=== PATIENT | female | born 1950 | race Caucasian/White ===

== ENCOUNTER 2021-06-04 09:20 | Emergency (ER) | payer MEDICARE, SELFPAY ==
[2021-06-04 09:22] VITALS: BP 172/108; PULSE 101; RESP 18; TEMP 36.6; O2SAT 97; BMI 32.3
--- NOTE | 2021-06-04 09:27 | XR_ITS ---
WS: [id number] XR hip LT 2-3V wo/w pel* [id number] REASON FOR EXAM: injury FINDINGS: There is osteoarthritis in the left hip with moderate narrowing of the joint space and osteophytic sp urring of the acetabulum. The femoral head and neck are intact as is the remainder of the femur. No fractures identified on the limited views of the superior and inferior pubic ramus. XR/XR hip LT 2-3V wo/w pel* [id number] IMPRESSION: No acute abnormality identified.
--- NOTE | 2021-06-04 09:28 | ED_ITS ---
HPI - General Adult General: Chief complaint: Extremity Injury, Lower Stated complaint: L HIP PAIN Time Seen by Provider: 06/04/21 09:25 History of Present Illness: HPI narrative: This patient is a 70-year-old female has a history of dementia presents to the emergency department with left hip pain. Patient is incoherent verbally and is this way chronically. No visual evidence of fall however the patient was found laying in the floor complaint left hip pain. Patient's family member states that the patient is known to lay down on the floor and complained of left hip pain. But there was no witness to a fall. Will do medical evaluation treat as needed. Associated symptoms: Deny chest pain, dyspnea, headache(s), nausea, rash, palpitations or vomiting Review of Systems General: Reports: 10 or more systems reviewed and unremarkable except in HPI and below Const: Denies: fever(s), chills, body aches or fatigue Eyes: Denies: change in vision or blurry vision ENMT: Denies: throat pain, hoarseness or mouth pain Card: Denies: chest pain, palpitations, irregular heart rhythm, edema, swelling of feet/ankles or lightheadedness Resp: Denies: dyspnea, productive cough, non-productive cough, wheezing or pain on inspiration GI: Denies: abdominal pain, nausea or vomiting : Denies: flank pain, difficulty voiding, dysuria, urinary frequency, urinary urgency or urinary hesitancy Musc: Reports: joint pain; Denies: neck pain, back pain, extremity pain, extremity swelling, joint swelling, joint redness, joint warmth or limited range of motion Skin/Breast: Denies: rash, pruritus, erythema or skin tenderness Neuro: Denies: headache(s), numbness in extremities or weakness in extremities Psych: Denies: anxiety or depression Physical Exam Const: COMMON NORMALS: no acute distress, average body habitus, patient oriented x3, no limitations, healthy appearing, alert and well nourished HENMT: COMMON NORMALS: normocephalic, atraumatic, hearing grossly normal bilaterally, external ears normal, EAC's normal, TM's normal bilaterally, Normal external nose present, Normal nasal mucous membranes and turbinates present, moist oral mucous membranes, oropharynx normal, dentition normal and gingiva normal HEAD & SCALP: normocephalic and atraumatic NOSE: Normal external nose present and Normal nasal mucous membranes and turbinates present EXTERNAL EAR: Yes external ears normal EXTERNAL AUDITORY CANAL: EAC's normal TYMPANIC MEMBRANE: TM's normal bilaterally Neck/C-Spine: COMMON NORMALS: full ROM, no lymphadenopathy, supple, no meningeal signs, no JVD, Thyroid normal and No carotid bruits THYROID: Thyroid normal Chest: COMMONS NORMALS: normal inspection of the chest, normal palpation of entire chest wall, normal inspection of the breasts and normal palpation of the breasts Breast/axilla inspection: Yes normal inspection of the breasts BREAST/AXILLA PALPATION: Yes normal palpation of the breasts Resp: COMMON NORMALS: normal respiratory effort, No retractions, No use of accessory muscles, clear to auscultation bilaterally and percussion normal AUSCULTATION: clear to auscultation bilaterally PERCUSSION: percussion normal Cardio: COMMON NORMALS: no JVD, regular rate, regular rhythm, S1 normal heart sound present, S2 normal heart sound present, No gallops present (Cardio), No clicks present (Cardio), No murmurs present (Cardio), No rub (Cardio) and Peripheral pulses 2+ throughout RATE: regular rate RHYTHM: regular rhythm HEART SOUNDS: S1 normal heart sound present and S2 normal heart sound present PERIPHERAL PULSES: Peripheral pulses 2+ throughout GI: COMMON NORMALS: Normal to inspection, nondistended, normoactive bowel sounds present, Soft to palpation, non-tender, No hepatosplenomegaly present, no masses and no bruits PALPATION: Yes Soft to palpation and Yes No hepatosplenomegaly present : COMMON NORMALS: Yes no CVA tenderness, Yes normal external appearance, Yes normal appearance of the vagina, Yes normal appearance of the cervix, Yes normal bimanual exam, Yes No adnexal tenderness and Yes no masses BLADDER/KIDNEY EXAM: Yes no CVA tenderness BIMANUAL EXAM - VAGINA & UTERUS: Yes normal bimanual exam Back/Pelvis: COMMON NORMALS: no CVA tenderness, thoracic and lumbar spine normal to inspection, no thoracic nor lumbar tenderness, thoraco-lumbar ROM normal and straight leg raise negative bilaterally Extremity: COMMON NORMALS: normal to inspection, full ROM, capillary refill normal, no joint enlargement, no clubbing, cyanosis or edema, no calf tenderness and no pedal edema NARRATIVE EXTREMITY EXAM: No pain on exam Neuro: COMMON NORMALS: patient oriented x3 SENSORIUM/ORIENTATION: Yes alert MENINGEAL SIGNS: Yes no meningeal signs Course Reevaluation(s): Reevaluation #1: Negative evaluation in the emergency department for any acute findings. Patient be discharged back to nursing Time: 10:35 Vital Signs: Vital signs: Vital Signs Temperature 97.9 F 06/04/21 09:22 Pulse Rate 101 H 06/04/21 09:22 Respiratory Rate 18 06/04/21 09:22 Blood Pressure 172/108 06/04/21 09:22 Pulse Oximetry 97 06/04/21 09:22 MDM - General Adult MDM Narrative: Medical decision making narrative: This patient is a 70-year-old female has a history of dementia presents to the emergency department with left hip pain. Patient is incoherent verbally and is this way chronically. No visual evidence of fall however the patient was found laying in the floor complaint left hip pain. Patient's family member states that the patient is known to lay down on the floor and complained of left hip pain. But there was no witness to a fall. Will do medical evaluation treat as needed. Negative evaluation in the emergency department for any acute findings. Patient be discharged back to nursing Imaging Data^: Xray Ortho: Attestation: I personally reviewed and interpreted this imaging study as follows: Radiologist's impression: FINDINGS: There is osteoarthritis in the left hip with moderate narrowing of the joint space and osteophytic spurring of the acetabulum. The femoral head and neck are intact as is the remainder of the femur. No fractures identified on the limited views of the superior and inferior pubic ramus. XR/XR hip LT 2-3V wo/w pel* [id number] IMPRESSION: No acute abnormality identified. Discharge Plan Discharge Patient Disposition: Home Clinical Impression: Hip osteoarthritis, Dementia Condition: Stable Discharge Orders: Discharge ED (Routine); Ordered 06/04/21 Ordered By: Paulo Kilgore Referrals: Paulina Crawford MD [Primary Care Provider] - Discharge Diet: Advance as tolerated Discharge Activity: Resume usual activity Patient Instructions: Opioid Safety Activity Restrictions/Additional Instructions: Take medications as prescribed for osteoarthritis of the hip. Follow-up with primary care physician to address any further pain medication concerns. Coding Level of Care Code ED Hospice Entrance Attendant for Chg Fwd Exam Comprehensive
[2021-06-04 10:59] VITALS: BP 163/89; PULSE 87; RESP 20; TEMP 36.8; O2SAT 94
== END 2021-06-04 11:29 | disposition home or self-care (01) ==
PROVIDERS: Emergency Provider Emergency Medicine; PCP Family Medicine
DX: M16.12 Unilateral primary osteoarthritis, left hip (principal); F03.90 Unspecified dementia, unspecified severity, without behavioral disturbance, psychotic disturbance, mood disturbance, and anxiety
CPT/HCPCS: 73502; 99282

== ENCOUNTER 2021-06-10 13:40 | Outpatient (CLI) | payer MEDICARE, SELFPAY ==
[2021-06-10 15:02] LABS: Basophils # 0.1 10^3/uL (0.0-0.1); Basophils % 0.8 %; Eosinophils # 0.3 10^3/uL (0.0-0.8); Eosinophils % 4.1 %; Hematocrit 42.3 % (37.0-47.0); Lymphocytes # 2.4 10^3/uL (0.8-4.8); Mean Corpuscular HGB Conc 30.7 g/dL (30.0-36.0); Mean Corpuscular Hemoglobin 27.6 pg (28.0-34.0); Mean Corpuscular Volume 89.8 fl (81-99); Mean Platelet Volume 10.8 fL (7.4-10.4); Monocytes # 0.5 10^3/uL (0.2-0.9); Monocytes % 5.9 %; Neutrophils # 4.93 10^3/uL (1.8-7.7); Neutrophils % 59.7 %; Nucleated Red Blood Cells % 0 %; Platelet Count 345 10^3/cmm (130-400); Red Blood Count 4.71 10^6/uL (4.1-5.3); Red Cell Distribution Width 13.3 % (12.1-15.1); White Blood Count 8.3 10^3/uL (4.0-10.0)
== END 2021-06-10 13:41 | disposition home or self-care (01) ==
PROVIDERS: PCP Family Medicine; Visit Provider Family Medicine
DX: D64.9 Anemia, unspecified (principal)
CPT/HCPCS: 85025

== ENCOUNTER 2021-06-11 14:24 | Outpatient (CLI) | payer MEDICARE, SELFPAY ==
[2021-06-11 14:32] LABS: Add Urine Microscopic? NO; Charge for UA Resulting for Rev
[2021-06-11 15:07] LABS: Bilirubin Urine Neg (Negative); Blood Urine Neg (Negative); Glucose Urine UA Norm (Normal); Ketones Urine Negative (Negative); Leukocyte Esterase Urine Negative (Negative); Nitrate Urine Negative (Negative); Protein Urine Neg (Negative); Specific Gravity, Urine 1.015 (1.005-1.030); Sulfosalicylic Acid Urine Negative (Negative); Urine Appearance Clear (CLEAR); Urine Color Yellow (Yellow); Urobilinogen Urine Norm (Negative); pH Urine 9 (5-7)
== END 2021-06-11 14:25 | disposition home or self-care (01) ==
LOC: LAB 14:28
PROVIDERS: PCP Family Medicine; Visit Provider Family Medicine
DX: R41.82 Altered mental status, unspecified (principal)
CPT/HCPCS: 81003; 87077; 87086; 87186

== ENCOUNTER 2021-08-10 22:19 | Emergency (ER) | payer MEDICARE, SELFPAY ==
--- NOTE | 2021-08-10 03:22 | XRR_ITS ---
PROCEDURE INFORMATION: Exam: XR Chest Exam date and time: 08/10/2021 3:22 AM Age: 71 years old Clinical indication: Shortness of breath; Additional info: AMS TECHNIQUE: Imaging protocol: XR of the chest. Views: 1 view. COMPARISON: No relevant prior studies available. FINDINGS: Lungs: Unremarkable. No consolidation. Pleural spaces: Unremarkable. No pleural effusion. No pneumothorax. Heart/Mediastinum: Unremarkable. No cardiomegaly. Bones/joints: There has been a fusion of the lower cervical spine. No other acute bony abnormality. XR/XR chest 1V portable [id number] IMPRESSION: No acute cardiopulmonary abnormality.
[2021-08-10 22:20] VITALS: BP 168/86; PULSE 95; RESP 20; TEMP 36.7; O2SAT 89; BMI 28.2
[2021-08-10 22:59] LABS: Add Urine Microscopic? NO; Charge for UA Resulting for Rev
[2021-08-10 23:00] LABS: Basophils # 0.1 10^3/uL (0.0-0.1); Basophils % 0.4 %; Eosinophils % 0.1 %; Hematocrit 38.9 % (37.0-47.0); Hemoglobin 12.8 g/dL (11.5-15.3); Lymphocytes # 1.6 10^3/uL (0.8-4.8); Lymphocytes % 9.7 %; Mean Corpuscular HGB Conc 32.9 g/dL (30.0-36.0); Mean Corpuscular Hemoglobin 29.4 pg (28.0-34.0); Mean Corpuscular Volume 89.4 fl (81-99); Mean Platelet Volume 11.3 fL (7.4-10.4); Monocytes # 0.9 10^3/uL (0.2-0.9); Monocytes % 5.3 %; Neutrophils # 14.23 10^3/uL (1.8-7.7); Neutrophils % 83.9 %; Nucleated Red Blood Cells % 0 %; Platelet Count 296 10^3/cmm (130-400); Red Blood Count 4.35 10^6/uL (4.1-5.3); Red Cell Distribution Width 14.5 % (12.1-15.1)
[2021-08-10 23:01] LABS: Bilirubin Urine 1+ (Negative); Blood Urine Neg (Negative); Glucose Urine UA Norm (Normal); Ketones Urine 1+ (Negative); Leukocyte Esterase Urine Negative (Negative); Nitrate Urine Negative (Negative); Protein Urine Neg (Negative); Urine Appearance Clear (CLEAR); Urine Color Yellow (Yellow); Urobilinogen Urine 4 mg/dL (Negative); pH Urine 7 (5-7)
[2021-08-10 23:02] VITALS: BP 126/84; PULSE 81; RESP 18; O2SAT 96
--- NOTE | 2021-08-10 23:06 | CTR_ITS ---
PROCEDURE INFORMATION: Exam: CT Head Without Contrast Exam date and time: 08/10/2021 11:06 PM Age: 71 years old Clinical indication: Altered mental status/memory loss; Additional info: AMS TECHNIQUE: Imaging protocol: Computed tomography of the head without contrast. Radiation optimization: All CT scans at this facility use at least one of these dose optimization techniques: automated exposure control; mA and/or kV adjustment per patient size (includes targeted exams where dose is matched to clinical indication); or iterative reconstruction. COMPARISON: No relevant prior studies available. RADIATION DOSE METRICS: Total DLP (mGy-cm): 867.6 FINDINGS: Brain: Age appropriate atrophy and small vessel ischemic change. There is an old lacunar infarct in the left cerebellar hemisphere. No evidence of intracranial hemorrhage, mass effect, midline shift or extra-axial fluid collections. Midline structures are normal. Nick-white matter differentiation is normal. Cerebral ventricles: No ventriculomegaly. Paranasal sinuses: Mucosal thickening in the ethmoid and maxillary sinuses. Mastoid air cells: Visualized mastoid air cells are well aerated. Vasculature: Carotid atherosclerotic calcification. Bones/joints: Unremarkable. No acute fracture. Soft tissues: Unremarkable. CT/CT head wo con* [id number] IMPRESSION: No acute intracranial abnormality.
--- NOTE | 2021-08-10 23:07 | ECG_ITS ---
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 Measurements Intervals [place] Rate: 90 P: 64 ME: 170 QRS: -19 QRSD: 103 T: 34 QT: 381 QTc: 467 Interpretive Statements SINUS RHYTHM INFERIOR MYOCARDIAL INFARCTION , PROBABLY OLD [40+ ms Q WAVE AND/OR ST/T ABNORMALITY IN II/aVF] Nonspecific T wave changes No previous ECG available for comparison Electronically Signed On 08-11-2021 20:45:06 CORSET FITTER by Ahsia Kennedy M.D. [id number] f
[2021-08-10 23:13] LABS: Alanine Aminotransferase 7 U/L (0-33); Albumin Level 4.1 g/dL (3.5-5.2); Alkaline Phosphatase 58 IU/L (35-105); Anion Gap 18.8 (5-19); Aspartate Amino Transferase 10 U/L (0-32); Blood Urea Nitrogen 13 mg/dL (8-23); Calcium 8.8 mg/dL (8.5-10.5); Carbon Dioxide 24 mmol/L (22-29); Chloride 100 mmol/L (98-107); Globulin 2.6 g/dL (1.3-4.6); Glucose 182 mg/dL (65-115); Osmolality Calculated 293 mOsm/kg (285-295); Potassium 3.8 mmol/L (3.5-5.1); Sodium 139 mmol/L (136-145); Total Bilirubin 0.8 mg/dL (0.15-1.2); Total Protein 6.7 g/dL (6.6-8.7)
[2021-08-10 23:22] LABS: Magnesium 1.8 mg/dL (1.7-2.3); Phosphorus 4.1 mg/dL (2.5-4.5)
[2021-08-10 23:28] LABS: Troponin(5th) Baseline 12 ng/L (0-10)
[2021-08-10 23:47] VITALS: BP 126/65; PULSE 77; RESP 17; O2SAT 96
[2021-08-11 00:16] LABS: Lactate (Lactic Acid level) 1.6 mmol/L (0.5-2.2)
[2021-08-11 00:51] LABS: ABG PH Result 7.43 (7.35-7.45); Arterial Blood Gas Hematocrit 39.6 % (37-47); Base Excess ABG 3.6 mmol/L (-2.0-2.0); Blood Gas Sample Type Arterial; HCO3 ABG 28.4 mmol/L (22-26); PO2 ABG 89.7 mmHg (80.0-100.0)
[2021-08-11 00:53] LABS: Blood Gas Sample Site Radial, left; Oxygen Device NC
--- NOTE | 2021-08-11 01:12 | W.ED.AMS ---
HPI - Altered Mental Status General: Chief Complaint: Altered Mental Status Stated Complaint: AMS Time Seen by Provider: 08/10/21 22:26 History of Present Illness: HPI narrative: 71yo female demented care home patient presenting with decreased mental status change. She is an unreliable historian. Reportedly there was some improvement with Narcan, although I do not see that the patient is on any opiates. MD complaint: altered mental status Onset (ago): hour(s) Timing confirmed by: caregiver Severity: moderate Consistency of symptoms: Unknown Context: other Associated symptoms: Reports no associated symptoms Review of Systems General: Reports: ROS unobtainable due to medical condition PFS ED PFSH: Medical History (Updated 08/11/21 @ 01:35 by Lalo Painter DO) Psychiatric care Physical Exam Const: GENERAL APPEARANCE: comfortable and lethargic; not in distress and not ill appearing ORIENTATION/CONSCIOUSNESS: Yes lethargic HENMT: COMMON NORMALS: normocephalic, atraumatic and Normal external nose present HEAD & SCALP: normocephalic and atraumatic NOSE: Normal external nose present and Normal nares present Eye: COMMON NORMALS: Equal, round and reactive pupils present PUPIL: Yes Equal, round and reactive pupils present Chest: COMMONS NORMALS: normal inspection of the chest Resp: COMMON NORMALS: normal respiratory effort Cardio: COMMON NORMALS: regular rate and regular rhythm RATE: regular rate RHYTHM: regular rhythm GI: COMMON NORMALS: Normal to inspection, nondistended, normoactive bowel sounds present and Soft to palpation PALPATION: Yes Soft to palpation Neuro: SENSORIUM/ORIENTATION: Yes lethargic SENSORY EXAM: Yes extremities (Seem intact) MOTOR EXAM: 5/5 motor strength present throughout (Patient moves all extremities equally, but does not follow commands.) Course Vital Signs: Vital signs: Vital Signs Temperature 98.0 F 08/10/21 22:20 Pulse Rate 81 08/11/21 02:46 Respiratory Rate 15 08/11/21 02:46 Blood Pressure 145/70 08/11/21 02:46 Pulse Oximetry 97 08/11/21 02:46 MDM - Altered Mental Status MDM Narrative: Medical decision making narrative: This patient is a poor historian, and does not follow commands appropriately. She is somnolent. It appears she takes gabapentin and haloperidol. Cath urine shows no urinary tract infection. Her white blood cell count is high. No definite source of infection. Her chest x-ray is negative. Head CT is negative. Oxygenation seems appropriate. Troponin did not elevated [address] changes on EKG. With no focal neurologic deficits, no significant findings by exam, or laboratory, she may return to the care home for now. Lab Data: Labs: Lab Results 08/10/21 08/10/21 08/10/21 00:39 22:02 22:02 WBC 17.0 10^3/uL H 10 ^3/uL (4.0-10.0) RBC 4.35 10^6/uL 10^6 /uL (4.1-5.3) Hgb 12.8 g/dL g/dL (11.5-15.3) Hct 38.9 % % (37.0-47.0) MCV 89.4 fl fl (81-99) MCH 29.4 pg pg (28.0-34.0) MCHC 32.9 g/dL g/dL (30.0-36.0) RDW 14.5 % % (12.1-15.1) Plt Count 296 10^3/cmm 10^3 /cmm (130-400) MPV 11.3 fL H fL (7.4-10.4) Neut % (Auto) 83.9 % % Lymph % (Auto) 9.7 % % [place] % (Auto) 5.3 % % Eos % (Auto) 0.1 % % Baso % (Auto) 0.4 % % Neut # (Auto) 14.23 10^3/uL H 1 0^3/uL (1.8-7.7) Lymph # (Auto) 1.6 10^3/uL 10^3/ uL (0.8-4.8) [place] # (Auto) 0.9 10^3/uL 10^3/ uL (0.2-0.9) Eos # (Auto) 0.0 10^3/uL 10^3/ uL (0.0-0.8) Baso # (Auto) 0.1 10^3/uL 10^3/ uL (0.0-0.1) Nucleated RBC % (a uto) 0 % % Nucleated RBCs # 0.0 /100WBC /100W BC Specimen Type Arterial Sample Site Radial, left ABG pH 7.43 (7.35-7.45) ABG pCO2 43.0 mmHg mmHg (35-45) ABG pO2 89.7 mmHg mmHg (80.0-100.0) ABG HCO3 28.4 mmol/L H mmo l/L (22-26) ABG Base Excess 3.6 mmol/L H mmol /L (-2.0-2.0) Mark Test N/a Hematocrit 39.6 % % (37-47) O2 Delivery Device Nc O2 Liters/Min 2.0 % % Customer Sales Advisor ID Nicer2 Sodium 139 mmol/L mmol/L (136-145) Potassium 3.8 mmol/L mmol/L (3.5-5.1) Chloride 100 mmol/L mmol/L (98-107) Carbon Dioxide 24 mmol/L mmol/L (22-29) Anion Gap 18.8 (5-19) BUN 13 mg/dL mg/dL (8-23) Creatinine 0.5 mg/dL mg/dL (0.5-0.9) GFR Calculation Not Reportable Glucose 182 mg/dL H mg/dL (65-115) Calculated Osmolal ity 293 mOsm/kg mOsm/ kg (285-295) Lactate Calcium 8.8 mg/dL mg/dL (8.5-10.5) Phosphorus Magnesium Total Bilirubin 0.8 mg/dL mg/dL (0.15-1.2) AST 10 U/L U/L (0-32) ALT 7 U/L U/L (0-33) Alkaline Phosphata se 58 IU/L IU/L (35-105) Troponin T Baselin e Troponin T 120 Min [place] Troponin T Total Protein 6.7 g/dL g/dL (6.6-8.7) Albumin 4.1 g/dL g/dL (3.5-5.2) Globulin 2.6 g/dL g/dL (1.3-4.6) Urine Color Urine Appearance Urine pH Ur Specific Gravit y Urine Protein Urine Glucose (UA) Urine Ketones Urine Blood Urine Nitrate Urine Bilirubin Urine Urobilinogen Ur Leukocyte Karmen ase 08/10/21 08/10/21 08/10/21 22:02 22:02 22:30 WBC RBC Hgb Hct MCV MCH MCHC RDW Plt Count MPV Neut % (Auto) Lymph % (Auto) [place] % (Auto) Eos % (Auto) Baso % (Auto) Neut # (Auto) Lymph # (Auto) [place] # (Auto) Eos # (Auto) Baso # (Auto) Nucleated RBC % (a uto) Nucleated RBCs # Specimen Type Sample Site ABG pH ABG pCO2 ABG pO2 ABG HCO3 ABG Base Excess Mark Test Hematocrit O2 Delivery Device O2 Liters/Min Customer Sales Advisor ID Sodium Potassium Chloride Carbon Dioxide Anion Gap BUN Creatinine GFR Calculation Glucose Calculated Osmolal ity Lactate Calcium Phosphorus 4.1 mg/dL mg/dL (2.5-4.5) Magnesium 1.8 mg/dL mg/dL (1.7-2.3) Total Bilirubin AST ALT Alkaline Phosphata se Troponin T Baselin e 12 ng/L H ng/L (0-10) Troponin T 120 Min [place] Troponin T Total Protein Albumin Globulin Urine Color Yellow (Yellow) Urine Appearance Clear (CLEAR) Urine pH 7 (5-7) Ur Specific Gravit y 1.010 (1.005-1.030) Urine Protein Neg (Negative) Urine Glucose (UA) Norm (Normal) Urine Ketones 1+ H (Negative) Urine Blood Neg (Negative) Urine Nitrate Negative (Negative) Urine Bilirubin 1+ H (Negative) Urine Urobilinogen 4 mg/dL H mg/dL (Negative) Ur Leukocyte Karmen ase Negative (Negative) 08/10/21 08/11/21 23:50 00:49 WBC RBC Hgb Hct MCV MCH MCHC RDW Plt Count MPV Neut % (Auto) Lymph % (Auto) [place] % (Auto) Eos % (Auto) Baso % (Auto) Neut # (Auto) Lymph # (Auto) [place] # (Auto) Eos # (Auto) Baso # (Auto) Nucleated RBC % (a uto) Nucleated RBCs # Specimen Type Sample Site ABG pH ABG pCO2 ABG pO2 ABG HCO3 ABG Base Excess Mark Test Hematocrit O2 Delivery Device O2 Liters/Min Customer Sales Advisor ID Sodium Potassium Chloride Carbon Dioxide Anion Gap BUN Creatinine GFR Calculation Glucose Calculated Osmolal ity Lactate 1.6 mmol/L mmol/L (0.5-2.2) Calcium Phosphorus Magnesium Total Bilirubin AST ALT Alkaline Phosphata se Troponin T Baselin e Troponin T 120 Min [place] 12.06 ng/L H ng/L (0-10) [place] Troponin T 0.06 ABS# ABS# (0-10) Total Protein Albumin Globulin Urine Color Urine Appearance Urine pH Ur Specific Gravit y Urine Protein Urine Glucose (UA) Urine Ketones Urine Blood Urine Nitrate Urine Bilirubin Urine Urobilinogen Ur Leukocyte Karmen ase Discharge Plan Discharge Patient Disposition: Home Clinical Impression: Altered mental status Qualifiers: Altered mental status type: somnolence Qualified Code(s): R40.0 - Somnolence Condition: Stable Prescriptions: No Action quetiapine 50 mg tablet 50 mg PO DAILY RF: 0 quetiapine 25 mg tablet 25 mg PO DAILY RF: 0 sennosides [Senna Lax] 8.6 mg tablet 8.6 mg PO DAILY RF: 0 trazodone 150 mg tablet 150 mg PO DAILY RF: 0 One Daily Womens 50 Plus 0.4 mg tablet PO RF: 0 zinc oxide 20 % ointment 1 applic topical TID RF: 0 acetaminophen 325 mg capsule 325 mg PO QID PRNRF: 0 amlodipine 5 mg tablet 5 mg PO DAILY RF: 0 atorvastatin 20 mg tablet 20 mg PO DAILY RF: 0 divalproex 125 mg tablet,delayed release (DR/EC) 125 mg PO TID RF: 0 gabapentin 300 mg capsule 300 mg PO TID RF: 0 haloperidol 5 mg tablet 5 mg PO DAILY RF: 0 lisinopril 20 mg tablet 20 mg PO DAILY RF: 0 melatonin 3 mg capsule 3 mg PO DAILY RF: 0 metoprolol succinate 50 mg tablet extended release 24 hr 50 mg PO DAILY RF: 0 Micro-Guard 2 % powder 1 applic topical BID RF: 0 pantoprazole 40 mg tablet,delayed release (DR/EC) 40 mg PO DAILY RF: 0 polyethylene glycol 3350 8.5 gram powder in packet 8.5 g PO DAILY RF: 0 Discharge Orders: Discharge ED (Routine); Ordered 08/11/21 Ordered By: Lalo Painter Referrals: Paulina Crawford MD [Primary Care Provider] - Discharge Diet: Usual diet Discharge Activity: Increase activity as tolerated Patient Instructions: Altered Mental Status (ED) Activity Restrictions/Additional Instructions: Return for worsening in mental status, weakness to 1 side, increasing pain, fever greater than 100, any other concerning symptoms. Coding Level of Care Code ED Oil Exploration Engineer for Pam Fwd Exam Comprehensive
[2021-08-11 01:14] LABS: Troponin 5 2HR 12.06 ng/L (0-10); Troponin 5 2HR Delta 0.06 ABS# (0-10)
[2021-08-11 01:29] VITALS: BP 156/82; PULSE 79; RESP 15; O2SAT 97
[2021-08-11 02:46] VITALS: BP 145/70; PULSE 81; RESP 15; O2SAT 97
== END 2021-08-11 02:52 | disposition home or self-care (01) ==
PROVIDERS: Emergency Provider Emergency Medicine; PCP Family Medicine
DX: R40.0 Somnolence (principal)
CPT/HCPCS: 36415; 70450; 71045; 80053; 81003; 82803; 83605; 83735; 84100; 84484; 85025; 93005; 99283

== ENCOUNTER 2021-09-10 14:30 | Outpatient (CLI) | payer MEDICARE, SELFPAY | END 2021-09-10 14:31 | disposition home or self-care (01) | LOC: WOUND 14:31 | PROVIDERS: PCP Family Medicine; Visit Provider Thoracic Surgery (Cardiothoracic Vascular Surgery) | DX: S31.811A Laceration without foreign body of right buttock, initial encounter (principal); X58.XXXA Exposure to other specified factors, initial encounter; E11.9 Type 2 diabetes mellitus without complications | CPT/HCPCS: 97597; 99214 ==

== ENCOUNTER 2021-09-12 08:29 | Outpatient (CLI) | payer MEDICARE, SELFPAY ==
[2021-09-12 09:06] LABS: Basophils # 0.1 10^3/uL (0.0-0.1); Basophils % 0.7 %; Eosinophils # 0.2 10^3/uL (0.0-0.8); Eosinophils % 2.4 %; Hematocrit 45.6 % (37.0-47.0); Hemoglobin 14.1 g/dL (11.5-15.3); Lymphocytes # 1.8 10^3/uL (0.8-4.8); Lymphocytes % 19.1 %; Mean Corpuscular HGB Conc 30.9 g/dL (30.0-36.0); Mean Corpuscular Hemoglobin 29.7 pg (28.0-34.0); Mean Corpuscular Volume 96.2 fl (81-99); Mean Platelet Volume 11.4 fL (7.4-10.4); Monocytes # 0.6 10^3/uL (0.2-0.9); Monocytes % 6.2 %; Neutrophils # 6.75 10^3/uL (1.8-7.7); Neutrophils % 71.2 %; Nucleated Red Blood Cells % 0 %; Platelet Count 229 10^3/cmm (130-400); Red Blood Count 4.74 10^6/uL (4.1-5.3); Red Cell Distribution Width 13.2 % (12.1-15.1); White Blood Count 9.5 10^3/uL (4.0-10.0)
== END 2021-09-12 08:30 | disposition home or self-care (01) ==
LOC: LAB 08:33
PROVIDERS: PCP Family Medicine; Visit Provider Family Medicine
DX: N39.0 Urinary tract infection, site not specified (principal); R68.89 Other general symptoms and signs
CPT/HCPCS: 85025

== ENCOUNTER 2021-09-14 13:58 | Outpatient (CLI) | payer MEDICARE, SELFPAY ==
[2021-09-14 14:42] LABS: Blood Urine Neg (Negative); Glucose Urine UA Norm (Normal); Ketones Urine Negative (Negative); Nitrate Urine Negative (Negative); Protein Urine Trace (Negative); Specific Gravity, Urine 1.025 (1.005-1.030); Urine Appearance Cloudy (CLEAR); Urine Color Yellow (Yellow); pH Urine 5 (5-7)
[2021-09-14 14:43] LABS: Add Urine Culture? Yes; Add Urine Microscopic? YES; Bacteria Urine 4+ /hpf; Bilirubin Urine Neg (Negative); Leukocyte Esterase Urine 1+ (Negative); Squamous Epithelial Cell Urine 0-4 /hpf (0-5); Urobilinogen Urine 1 mg/dL (Negative); WBC Urine 15-25 /hpf (0-5)
== END 2021-09-14 13:59 | disposition home or self-care (01) ==
PROVIDERS: PCP Family Medicine; Visit Provider Family Medicine
DX: N39.0 Urinary tract infection, site not specified (principal)
CPT/HCPCS: 81001; 87077; 87086; 87186

== ENCOUNTER 2021-09-17 10:16 | Outpatient (CLI) | payer MEDICARE, SELFPAY | END 2021-09-17 10:17 | disposition home or self-care (01) | LOC: WOUND 10:18 | PROVIDERS: PCP Family Medicine; Visit Provider Nurse Practitioner Family | DX: L89.312 Pressure ulcer of right buttock, stage 2 (principal); E11.9 Type 2 diabetes mellitus without complications; I10 Essential (primary) hypertension | CPT/HCPCS: 99212; 99213 ==

== ENCOUNTER 2021-09-28 12:22 | Inpatient (IN) | payer MEDICARE, SELFPAY ==
[2021-09-28] VITALS (11 sets, daily range): BP systolic 113–182; BP diastolic 69–120; PULSE 91–113; RESP 16–22; TEMP 36.8–38.2; O2SAT 86–98; BMI 25.9
--- NOTE | 2021-09-28 12:39 | XRR_ITS ---
PROCEDURE INFORMATION: Exam: XR Chest Exam date and time: 09/28/2021 12:39 PM Age: 71 years old Clinical indication: Other: AMS TECHNIQUE: Imaging protocol: XR of the chest. Views: 1 view. COMPARISON: CT angio chest PE protcl [id number] 09/28/2021 2:12 PM FINDINGS: Lungs: Unremarkable. No consolidation. Pleural spaces: Unremarkable. No pleural effusion. No pneumothorax. Heart/Mediastinum: Unremarkable. No cardiomegaly. Bones/joints: ACDF noted in the lower cervical spine. Visualized osseous structures are intact. XR/XR chest 1V portable [id number] IMPRESSION: No acute findings.
--- NOTE | 2021-09-28 12:39 | CTR_ITS ---
PROCEDURE INFORMATION: Exam: CT Head Without Contrast Exam date and time: 09/28/2021 12:39 PM Age: 71 years old Clinical indication: Altered mental status/memory loss; Additional info: AMS TECHNIQUE: Imaging protocol: Computed tomography of the head without contrast. Radiation optimization: All CT scans at this facility use at least one of these dose optimization techniques: automated exposure control; mA and/or kV adjustment per patient size (includes targeted exams where dose is matched to clinical indication); or iterative reconstruction. COMPARISON: CT head wo con* [id number] 08/10/2021 11:28 PM RADIATION DOSE METRICS: Total DLP (mGy-cm): 935.92 FINDINGS: Brain: No hemorrhage. No cerebral edema. Advanced diffuse cerebral atrophy and sequela of chronic small vessel ischemic disease. Old lacunar infarcts in the basal ganglia and left cerebellum noted. No mass effect. Cerebral ventricles: No ventriculomegaly. Paranasal sinuses: Partially opacified ethmoid and right frontal sinuses noted. Trace fluid levels in the sphenoid sinuses. Mastoid air cells: Visualized mastoid air cells are well aerated. Bones/joints: Unremarkable. No acute fracture. Soft tissues: Unremarkable. CT/CT head wo con* [id number] IMPRESSION: 1. No acute intracranial abnormality. 2. Advanced diffuse cerebral atrophy and sequela of chronic small vessel ischemic disease. Old lacunar infarcts in the basal ganglia and left cerebellum.
--- NOTE | 2021-09-28 12:39 | CTR_ITS ---
PROCEDURE INFORMATION: Exam: CTA Chest With Contrast Exam date and time: 09/28/2021 12:39 PM Age: 71 years old Clinical indication: Shortness of breath; Additional info: Eval pe TECHNIQUE: Imaging protocol: Computed tomographic angiography of the chest with contrast. 3D rendering (Not supervised by radiologist): MIP and/or 3D reconstructed images were created by the technologist. Radiation optimization: All CT scans at this facility use at least one of these dose optimization techniques: automated exposure control; mA and/or kV adjustment per patient size (includes targeted exams where dose is matched to clinical indication); or iterative reconstruction. Contrast material: OMNI 350; Contrast volume: 95 ml; Contrast route: INTRAVENOUS (IV); COMPARISON: CR (CHEST, ) 08/10/2021 11:22 PM RADIATION DOSE METRICS: Total DLP (mGy-cm): 503.56 FINDINGS: Pulmonary arteries: No evidence of pulmonary emboli. Aorta: No aortic aneurysm. No aortic dissection. Lungs: Debris noted within the trachea, mainstem bronchi/proximal bronchial branches. A few scattered ground-glass opacities noted in the superior aspect of the left lower lobe as well of areas of subsegmental atelectasis in the left lung base and lingula. Pleural spaces: Unremarkable. No pneumothorax. No pleural effusion. Heart: Coronary artery and mitral valvular calcifications noted. No cardiomegaly. No pericardial effusion. Lymph nodes: Unremarkable. No enlarged lymph nodes. Bones/joints: No acute fracture. ACDF noted in the lower cervical spine. Soft tissues: Unremarkable. CT/CT angio chest PE protcl [id number] IMPRESSION: 1. Negative for pulmonary embolism. 2. Debris noted within the trachea and mainstem bronchi/proximal bronchial branches. There are few areas of ground-glass opacities and subsegmental atelectasis in the left lung which may relate to mucous plugging.
--- NOTE | 2021-09-28 12:41 | ECG_ITS ---
[facility] Test Date: 2021-09-28 Pat Name: Avis Walls Department: Room: Gender: Female Economic Developer: : 1950 Requested By: Trey Dewitt Order Number: [id number] Reading MD: BABAK JAMES Measurements Intervals [place] Rate: 101 P: DC: QRS: -28 QRSD: 94 T: 86 QT: 343 QTc: 445 Interpretive Statements Sinus tachycardia POSSIBLE INFERIOR MYOCARDIAL INFARCTION , PROBABLY OLD [30 ms Q WAVE IN II/aVF] ABNORMAL RHYTHM ECG INTERPRETATION BASED ON A DEFAULT AGE OF 40 YEARS Compared to ECG 08/10/2021 22:25:06 Sinus tachycardia present T-wave abnormality no longer present Myocardial infarct finding still present Electronically Signed On 09-28-2021 19:16:09 PSYCH NP by BABAK JAMES [id number]
--- NOTE | 2021-09-28 12:50 | W.ED.GENADLT ---
HPI - General Adult General: Chief complaint: ER Hold Stated complaint: AMS; COVID + Time Seen by Provider: 09/28/21 12:25 History of Present Illness: Patient is a 71-year-old female with history of baseline dementia, DNR, recent UTI currently on antibiotics presenting to the emergency room with concerns for worsening altered mental status in setting of Covid positive test from 5 days ago. Per [facility] staff, patient has become increasingly more confused since the diagnosis of UTI. Earlier today, patient was noted to have mild respiratory distress and EMS was called. On arrival, patient was satting 80% on room air. EMS brought patient to the emergency room for further evaluation. On arrival, patient is GCS of 3 obtunded. Have discussed case with patient's daughter Nichelle Pickens agrees that patient is DNR at this time. Unable to obtain further history. Onset:5 days ago Duration:ongoing Location: [facility] Severity:severe Review of Systems General: Reports: ROS unobtainable due to medical condition and ROS unobtainable due to mental status PFS ED PFSH: Medical History Altered mental status COVID Dementia DNR (do not resuscitate) Hypertension Psychiatric care Surgical History History of cholecystectomy Family History Other Psychiatric illness Denies family history of Stroke Social History Smoking and tobacco status: never smoked Alcohol intake: never Substance/Drug Use: never Adopted: No Caregiver/support person: Yes Lives independently: No Household members: other Housing: Snf Physical Exam Const: EXAM LIMITATIONS: altered mental status and physical limitations GENERAL APPEARANCE: other (thin, cachetic) ORIENTATION/CONSCIOUSNESS: Yes patient obtunded HENMT: COMMON NORMALS: atraumatic HEAD & SCALP: atraumatic Eye: COMMON NORMALS: conjunctivae normal CONJUNCTIVA: Yes conjunctivae normal Neck/C-Spine: COMMON NORMALS: full ROM and supple Resp: OTHER: coarse breath sounds b/l Cardio: RATE: tachycardic GI: COMMON NORMALS: Soft to palpation and non-tender PALPATION: Yes Soft to palpation Extremity: COMMON NORMALS: full ROM Neuro: HERNAN COMA SCALE: GCS not evaluated OTHER: Obtunded, unable to assess Psych: OTHER: Unable to assess due to altered mental status Course Vital Signs: Vital signs: Vital Signs Temperature 98.2 F 09/29/21 12:00 Pulse Rate 71 09/29/21 12:00 Respiratory Rate 22 H 09/29/21 12:00 Blood Pressure 107/64 09/29/21 12:00 Pulse Oximetry 91 09/29/21 12:00 MDM - General Adult Medical Decision Making Patient is a 71-year-old female with history of dementia, DNR, recent Covid infection 5 days ago, with UTI on antibiotics presented to emergency room with worsening altered mental status in setting of hypoxemic homero distress. On room air, patient satting at 85% improved to 90% on 5 L of oxygen. Altered mental status, will work-up patient for altered mental status. We will reobtain Covid sample today. Work-up: CBC, CMP, lipase, lactic acid, blood culture, UA, EKG, troponin, CT head, CTA chest, COVID PCR, ABG Intervention: IVF, vancomycin, cefepime, remdesivir, Decadron Reassessment patient satting comfortably at 6 L of oxygen. Patient has clear DNR paperwork and as such we will not proceed with intubation. Patient is noted to have a white count of 25.7. Given no known cardiac history and age, we will restrict fluid resuscitation to 1 L as part of sepsis protocol. Patient received vancomycin and cefepime. Covid test is positive today. Status post remdesivir and Decadron. Discussed case with patient's daughter Nikki Pickens in the emergency room. Patient will be mated to hospital for altered mental status work-up in setting of hypoxemic respiratory failure and possible urosepsis. Disposition: Admission Lab Data : 09/29/21 04:03 09/29/21 04:03 Radiology Impressions Chest CTA 09/28/21 12:39 IMPRESSION: 1. Negative for pulmonary embolism. 2. Debris noted within the trachea and mainstem bronchi/proximal bronchial branches. There are few areas of ground-glass opacities and subsegmental atelectasis in the left lung which may relate to mucous plugging. Head CT 09/28/21 12:39 IMPRESSION: 1. No acute intracranial abnormality. 2. Advanced diffuse cerebral atrophy and sequela of chronic small vessel ischemic disease. Old lacunar infarcts in the basal ganglia and left cerebellum. Abdomen/Pelvis CT 09/28/21 14:45 IMPRESSION: 1. Negative for focal acute inflammatory process in the abdomen or pelvis. 2. Bibasilar left greater than right airspace infiltrates. 3. Cholecystectomy. 4. Diverticulosis without diverticulitis. 5. Young catheter in the urinary bladder with air presumed iatrogenic. Chest X-Ray 09/29/21 06:00 IMPRESSION: Bilateral lung opacities compatible with subacute pneumonitis are now identifiable. Laboratory Results WBC 25.7 10^3/uL (4.0-10.0) H 09/28/21 12:00 RBC 4.90 10^6/uL (4.1-5.3) 09/28/21 12:00 Hgb 14.4 g/dL (11.5-15.3) 09/28/21 12:00 Hct 45.2 % (37.0-47.0) 09/28/21 12:00 MCV 92.2 fl (81-99) 09/28/21 12:00 MCH 29.4 pg (28.0-34.0) 09/28/21 12:00 MCHC 31.9 g/dL (30.0-36.0) 09/28/21 12:00 RDW 13.3 % (12.1-15.1) 09/28/21 12:00 Plt Count 307 10^3/cmm (130-400) 09/28/21 12:00 MPV 11.9 fL (7.4-10.4) H 09/28/21 12:00 Neut % (Auto) 88.6 % 09/28/21 12:00 Lymph % (Auto) 5.4 % 09/28/21 12:00 [place] % (Auto) 5.0 % 09/28/21 12:00 Eos % (Auto) 0.2 % 09/28/21 12:00 Baso % (Auto) 0.4 % 09/28/21 12:00 Neut # (Auto) 22.79 10^3/uL (1.8-7.7) H 09/28/21 12:00 Lymph # (Auto) 1.4 10^3/uL (0.8-4.8) 09/28/21 12:00 [place] # (Auto) 1.3 10^3/uL (0.2-0.9) H 09/28/21 12:00 Eos # (Auto) 0.1 10^3/uL (0.0-0.8) 09/28/21 12:00 Baso # (Auto) 0.1 10^3/uL (0.0-0.1) 09/28/21 12:00 Nucleated RBC % (auto) 0 % 09/28/21 12:00 Nucleated RBCs # 0.0 /100WBC 09/28/21 12:00 D-Dimer 1.16 ug/mIFEU (0-0.59) H 09/28/21 12:00 Specimen Type Arterial 09/28/21 13:02 Sample Site Radial, right 09/28/21 13:02 ABG pH 7.50 (7.35-7.45) H 09/28/21 13:02 ABG pCO2 34.2 mmHg (35-45) L 09/28/21 13:02 ABG pO2 52.7 mmHg (80.0-100.0) L 09/28/21 13:02 ABG HCO3 26.5 mmol/L (22-26) H 09/28/21 13:02 ABG O2 Saturation 90.3 09/28/21 13:02 ABG Base Excess 3.6 mmol/L (-2.0-2.0) H 09/28/21 13:02 Mark Test Pos 09/28/21 13:02 A-a O2 Gradient 24.6 mmHg (5-10) H 09/28/21 13:02 Hematocrit 45.4 % (37-47) 09/28/21 13:02 Hgb O2 Saturation 89.0 % (95-100) L 09/28/21 13:02 Carboxyhemoglobin 1.0 %THgb (0.4-20.1) 09/28/21 13:02 Methemoglobin 0.5 % (0.4-1.5) 09/28/21 13:02 Total Hemoglobin 14.8 g/dL (12-16) 09/28/21 13:02 Sodium 149.0 mmol/L (131-143) H 09/28/21 13:02 Potassium 3.8 mmol/L (3.5-5.0) 09/28/21 13:02 Glucose 197.0 mg/dL (70-115) H 09/28/21 13:02 Ionized Calcium 1.2 mmol/L (1.1-1.4) 09/28/21 13:02 O2 Delivery Device Nc 09/28/21 13:02 O2 Liters/Min 5.0 % 09/28/21 13:02 FiO2 40.0 % 09/28/21 13:02 Opener Verifier [employer] ID Ed 09/28/21 13:02 Sodium 146 mmol/L (136-145) H 09/28/21 12:00 Potassium 3.7 mmol/L (3.5-5.1) 09/28/21 12:00 Chloride 107 mmol/L (98-107) 09/28/21 12:00 Carbon Dioxide 24 mmol/L (22-29) 09/28/21 12:00 Anion Gap 18.7 (5-19) 09/28/21 12:00 BUN 18 mg/dL (8-23) 09/28/21 12:00 Creatinine 0.6 mg/dL (0.5-0.9) 09/28/21 12:00 GFR Calculation Not Reportable 09/28/21 12:00 Glucose 167 mg/dL (65-115) H 09/28/21 12:00 Calculated Osmolality 308 mOsm/kg (285-295) H 09/28/21 12:00 Lactate 1.4 mmol/L (0.5-2.2) 09/28/21 14:38 Calcium 9.1 mg/dL (8.5-10.5) 09/28/21 12:00 Iron 15 ug/dL (37-145) L 09/28/21 12:00 TIBC 195 mcg/dl 09/28/21 12:00 % Saturation 7.6 % (20-50) L 09/28/21 12:00 Unsat Iron Binding 180 ug/dL (112-347) 09/28/21 12:00 Total Bilirubin 1.5 mg/dL (0.15-1.2) H 09/28/21 12:00 AST 25 U/L (0-32) 09/28/21 12:00 ALT 29 U/L (0-33) 09/28/21 12:00 Alkaline Phosphatase 58 IU/L (35-105) 09/28/21 12:00 Troponin T Baseline 27 ng/L (0-10) H 09/28/21 12:00 Troponin T 120 Minute 31.69 ng/L (0-10) H 09/28/21 14:38 Delta Troponin T 4.69 ABS# (0-10) 09/28/21 14:38 C-Reactive Protein 51.8 mg/L (0.0-4.9) H 09/28/21 12:00 NT-Pro-B Natriuret Pep 211 pg/mL (0-125) H 09/28/21 12:00 NT-Pro-B Natriuret Pep 232 pg/mL (0-125) H 09/28/21 12:00 Total Protein 6.8 g/dL (6.6-8.7) 09/28/21 12:00 Albumin 3.7 g/dL (3.5-5.2) 09/28/21 12:00 Globulin 3.1 g/dL (1.3-4.6) 09/28/21 12:00 Lipase 23 U/L (13-60) 09/28/21 12:00 Procalcitonin 0.05 ng/mL (0-0.5) 09/28/21 12:00 TSH 1.05 uIU/mL (0.27-4.20) 09/28/21 12:00 Urine Color Dea (Yellow) 09/28/21 13:12 Urine Appearance Sl hazy (CLEAR) 09/28/21 13:12 Urine pH 5 (5-7) 09/28/21 13:12 Ur Specific [place] 1.025 (1.005-1.030) 09/28/21 13:12 Urine Protein 1+ (Negative) H 09/28/21 13:12 Urine Glucose (UA) Norm (Normal) 09/28/21 13:12 Urine Ketones 1+ (Negative) H 09/28/21 13:12 Urine Blood Neg (Negative) 09/28/21 13:12 Urine Nitrate Negative (Negative) 09/28/21 13:12 Urine Bilirubin 2+ (Negative) H 09/28/21 13:12 Urine Urobilinogen 8 mg/dL (Negative) H 09/28/21 13:12 Ur Leukocyte Esterase 2+ (Negative) H 09/28/21 13:12 Urine RBC None /hpf (0-2) 09/28/21 13:12 Urine WBC 15-25 /hpf (0-5) H 09/28/21 13:12 Ur Squamous Epith Cells 5-10 /hpf (0-5) H 09/28/21 13:12 Amorphous Sediment Not Reportable 09/28/21 13:12 Urine Bacteria 2+ /hpf (NONE) H 09/28/21 13:12 Urine Mucus 2+ /hpf 09/28/21 13:12 Coronavirus 229E (PCR) Not detected (NOT DETECT) 09/28/21 13:05 SARS-CoV-2 (PCR) Not detected (NOT DETECT) 09/28/21 13:05 Imaging Data Other Imaging: Radiologist's impression: Launch?Image [employer] [address] [place] [address] XRay Report Signed Patient: Avis Walls Unit #: [id number] : 1950 Age/Sex: 71 / F ADM Date: 09/28/21 Loc: ER Room/Bed: Attending Dr: Ordering Provider/Ordering MD: Trey Dewitt MD Date of Service: 09/28/21 Procedure(s): XR chest 1V portable [id number] Accession Number(s): [id number] Report Number: [id number] PROCEDURE INFORMATION: Exam: XR Chest Exam date and time: 09/28/2021 12:39 PM Age: 71 years old Clinical indication: Other: AMS TECHNIQUE: Imaging protocol: XR of the chest. Views: 1 view. COMPARISON: CT angio chest PE protcl [id number] 09/28/2021 2:12 PM FINDINGS: Lungs: Unremarkable. No consolidation. Pleural spaces: Unremarkable. No pleural effusion. No pneumothorax. Heart/Mediastinum: Unremarkable. No cardiomegaly. Bones/joints: ACDF noted in the lower cervical spine. Visualized osseous structures are intact. XR/XR chest 1V portable [id number] IMPRESSION: No acute findings. ? Dictated By: Abelino Traylor DO Signed By: Abelino Traylor DO Signed Date/Time: 09/28/21 1435 DD/ 1239 [employer] [address] [place], [place] [address] CT Scan Report Signed Patient: Avis Walls Unit #: [id number] : 1950 Age/Sex: 71 / F ADM Date: 09/28/21 Loc: ER Room/Bed: Attending Dr: Ordering Provider/Ordering MD: Trey Dewitt MD Date of Service: 09/28/21 Procedure(s): CT head wo con* [id number] Accession Number(s): [id number] Report Number: [id number] PROCEDURE INFORMATION: Exam: CT Head Without Contrast Exam date and time: 09/28/2021 12:39 PM Age: 71 years old Clinical indication: Altered mental status/memory loss; Additional info: AMS TECHNIQUE: Imaging protocol: Computed tomography of the head without contrast. Radiation optimization: All CT scans at this facility use at least one of these dose optimization techniques: automated exposure control; mA and/or kV adjustment per patient size (includes targeted exams where dose is matched to clinical indication); or iterative reconstruction. COMPARISON: CT head wo con* [id number] 08/10/2021 11:28 PM RADIATION DOSE METRICS: Total DLP (mGy-cm): 935.92 FINDINGS: Brain: No hemorrhage. No cerebral edema. Advanced diffuse cerebral atrophy and sequela of chronic small vessel ischemic disease. Old lacunar infarcts in the basal ganglia and left cerebellum noted. No mass effect. Cerebral ventricles: No ventriculomegaly. Paranasal sinuses: Partially opacified ethmoid and right frontal sinuses noted. Trace fluid levels in the sphenoid sinuses. Mastoid air cells: Visualized mastoid air cells are well aerated. Bones/joints: Unremarkable. No acute fracture. Soft tissues: Unremarkable. CT/CT head wo con* [id number] IMPRESSION: 1. No acute intracranial abnormality. 2. Advanced diffuse cerebral atrophy and sequela of chronic small vessel ischemic disease. Old lacunar infarcts in the basal ganglia and left cerebellum. ? Dictated By: Abelino Traylor DO Signed By: Abelino Traylor DO Signed Date/Time: 09/28/21 1441 DD/ 1239 Critical Care Time Critical Care Time: Critical Care Time: Yes Total Critical Care Time: 35 Attestation: Given the high probability of imminent or life threatening deterioration of the patient?s condition without intervention, the patient was immediately assessed by myself and the nurse, and cardiac monitoring initiated. The patient was also placed on oxygen and continuous pulse oximetry initiated. During the course of the patient?s stay, I spent a considerable amount of time at the bedside performing serial re-evaluations of the patient?s hemodynamic and clinical status because of the recognized potential threat to life or limb in this condition. Clinical management of this patient involved high complexity decision making to assess, manipulate, and support vital organ system failure. I then had a chance to review all of the available laboratory and radiographic studies obtained today, and I also reviewed old records available to me at the time. Sequential vital signs were obtained. Critical care time noted below was time spent engaged in work directly related to the individual patient?s care, not including time performing procedures; however it does include time spent at the immediate bedside or elsewhere on the floor or unit. TOTAL CRITICAL CARE TIME ELAPSED:35. BODY SYSTEM AT HIGHEST RISK: pulmonary. Discharge Plan Discharge Patient Disposition: Admitted As Inpatient Admit Provider: Max Moreno Clinical Impression: DNR (do not resuscitate), Altered mental status, Acute hypoxemic respiratory failure, COVID, Acute UTI Condition: Stable Coding Level of Care Code ED Education Liaison for [facility] Fwd Exam Comprehensive Critical Care Event Note Code activated: No Narrative: This case had a high probability of a clinically significant, sudden, or life threatening deterioration of this patient's condition which required my full and direct attention, intervention and personal management. Critical care time: 30 - 74 mins
[2021-09-28 12:51] LABS: Basophils # 0.1 10^3/uL (0.0-0.1); Basophils % 0.4 %; Eosinophils # 0.1 10^3/uL (0.0-0.8); Eosinophils % 0.2 %; Hematocrit 45.2 % (37.0-47.0); Hemoglobin 14.4 g/dL (11.5-15.3); Lymphocytes # 1.4 10^3/uL (0.8-4.8); Lymphocytes % 5.4 %; Mean Corpuscular HGB Conc 31.9 g/dL (30.0-36.0); Mean Corpuscular Hemoglobin 29.4 pg (28.0-34.0); Mean Corpuscular Volume 92.2 fl (81-99); Mean Platelet Volume 11.9 fL (7.4-10.4); Monocytes # 1.3 10^3/uL (0.2-0.9); Neutrophils # 22.79 10^3/uL (1.8-7.7); Neutrophils % 88.6 %; Nucleated Red Blood Cells % 0 %; Platelet Count 307 10^3/cmm (130-400); Red Cell Distribution Width 13.3 % (12.1-15.1); White Blood Count 25.7 10^3/uL (4.0-10.0)
[2021-09-28] MEDS: dexamethasone 10 mg/mL INJ 6 MG IVP (13:02)
[2021-09-28] MEDS: cefepime 1,000 MG in sodium chloride 0.9% (plus) 50 ML 100 MG IV (13:02)
[2021-09-28] MEDS: sodium chloride 0.9% 1,000 ML 999 ML IV (13:03)
[2021-09-28 13:12] LABS: ABG PCO2 34.2 mmHg (35-45); Arterial Blood Gas Hematocrit 45.4 % (37-47); Base Excess ABG 3.6 mmol/L (-2.0-2.0); Blood Gas Allen Test Pos; Blood Gas Sample Type Arterial; HCO3 ABG 26.5 mmol/L (22-26); Ionized Calcium Level - ABG 1.2 mmol/L (1.1-1.4); Methemoglobin 0.5 % (0.4-1.5); Oxygen Saturation ABG 90.3; PO2 ABG 52.7 mmHg (80.0-100.0); Potassium Level - ABG 3.8 mmol/L (3.5-5.0); Total Hemoglobin 14.8 g/dL (12-16)
[2021-09-28 13:16] LABS: Troponin(5th) Baseline 27 ng/L (0-10)
[2021-09-28 13:20] LABS: Alveolar-Arterial Oxygen Gradi 24.6 mmHg (5-10); Blood Gas Operator Identificat ED; Blood Gas Sample Site Radial, right; Oxygen Device NC
[2021-09-28 13:22] LABS: Alanine Aminotransferase 29 U/L (0-33); Albumin Level 3.7 g/dL (3.5-5.2); Alkaline Phosphatase 58 IU/L (35-105); Anion Gap 18.7 (5-19); Aspartate Amino Transferase 25 U/L (0-32); Blood Urea Nitrogen 18 mg/dL (8-23); Calcium 9.1 mg/dL (8.5-10.5); Carbon Dioxide 24 mmol/L (22-29); Chloride 107 mmol/L (98-107); Globulin 3.1 g/dL (1.3-4.6); Glucose 167 mg/dL (65-115); Lipase 23 U/L (13-60); NT Pro B Type Natriuretic Pept 211 pg/mL (0-125); Osmolality Calculated 308 mOsm/kg (285-295); Potassium 3.7 mmol/L (3.5-5.1); Sodium 146 mmol/L (136-145); Total Bilirubin 1.5 mg/dL (0.15-1.2); Total Protein 6.8 g/dL (6.6-8.7)
[2021-09-28 13:57] LABS: Specific Gravity, Urine 1.025 (1.005-1.030); Urine Appearance SL Hazy (CLEAR); Urine Color Amber (Yellow); pH Urine 5 (5-7)
[2021-09-28 13:58] LABS: Add Urine Culture? Yes; Add Urine Microscopic? YES; Bacteria Urine 2+ /hpf; Bilirubin Urine 2+ (Negative); Blood Urine Neg (Negative); Glucose Urine UA Norm (Normal); Ketones Urine 1+ (Negative); Leukocyte Esterase Urine 2+ (Negative); Mucus Urine 2+ /hpf; Nitrate Urine Negative (Negative); Protein Urine 1+ (Negative); Urobilinogen Urine 8 mg/dL (Negative); WBC Urine 15-25 /hpf (0-5)
[2021-09-28] MEDS: iohexol 350 mg/mL 100 mL Btl IV (14:09)
[2021-09-28] MEDS: vancomycin 1,000 MG in sodium chloride 0.9% 250 ML 250 MG IV (14:18)
--- NOTE | 2021-09-28 14:41 | ECG_ITS ---
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
--- NOTE | 2021-09-28 14:45 | CTR_ITS ---
PROCEDURE INFORMATION: Exam: CT Abdomen And Pelvis With Contrast Exam date and time: 09/28/2021 2:45 PM Age: 71 years old Clinical indication: Fever; Additional info: Eval for infection TECHNIQUE: Imaging protocol: Computed tomography of the abdomen and pelvis with contrast. Radiation optimization: All CT scans at this facility use at least one of these dose optimization techniques: automated exposure control; mA and/or kV adjustment per patient size (includes targeted exams where dose is matched to clinical indication); or iterative reconstruction. Contrast material: OMNI 300; Contrast volume: 95 ml; Contrast route: INTRAVENOUS (IV); COMPARISON: CR XR hip LT 2-3V wo/w pel* [id number] 06/04/2021 9:32 AM RADIATION DOSE METRICS: Total DLP (mGy-cm): 1727.39 FINDINGS: Lungs: Bibasilar left greater than right airspace infiltrates. Liver: Normal. No mass. Gallbladder and bile ducts: Cholecystectomy. Pancreas: Normal. No ductal dilation. Spleen: Normal. No splenomegaly. Adrenal glands: Normal. No mass. Kidneys and ureters: Normal. No hydronephrosis. Stomach and bowel: Diverticulosis without diverticulitis. Appendix: No evidence of appendicitis. Intraperitoneal space: Unremarkable. No free air. No significant fluid collection. Vasculature: Unremarkable. No abdominal aortic aneurysm. Lymph nodes: Unremarkable. No enlarged lymph nodes. Urinary bladder: Young catheter in the urinary bladder with air presumed iatrogenic. Reproductive: Unremarkable as visualized. Bones/joints: Unremarkable. No acute fracture. Soft tissues: Unremarkable. CT/CT abdomen pelvis w con* [id number] IMPRESSION: 1. Negative for focal acute inflammatory process in the abdomen or pelvis. 2. Bibasilar left greater than right airspace infiltrates. 3. Cholecystectomy. 4. Diverticulosis without diverticulitis. 5. Young catheter in the urinary bladder with air presumed iatrogenic.
[2021-09-28 15:16] LABS: Lactate (Lactic Acid level) 1.4 mmol/L (0.5-2.2)
[2021-09-28 15:17] LABS: Troponin 5 2HR 31.69 ng/L (0-10); Troponin 5 2HR Delta 4.69 ABS# (0-10)
[2021-09-28 15:28] LABS: Adenovirus Not Detected (NOT DETECT); Chlamydia Pneumoniae Not Detected (NOT DETECT); Coronavirus 229E,HKU1,NL63,OC4 Not Detected (NOT DETECT); Human Metapneumovirus Not Detected (NOT DETECT); Human Rhinovirus/Enterovirus Not Detected (NOT DETECT); Influenza A Not Detected (NOT DETECT); Influenza A H1 Not Detected (NOT DETECT); Influenza A H1-2009 Not Detected (NOT DETECT); Influenza A H3 Not Detected (NOT DETECT); Influenza B Not Detected (NOT DETECT); Mycoplasma Pneumoniae Not Detected (NOT DETECT); Parainfluenza Virus Type 1 Not Detected (NOT DETECT); Parainfluenza Virus Type 2 Not Detected (NOT DETECT); Parainfluenza Virus Type 3 Not Detected (NOT DETECT); Parainfluenza Virus Type 4 Not Detected (NOT DETECT); Respiratory Syncytial Virus A Not Detected (NOT DETECT); Respiratory Syncytial Virus B Not Detected (NOT DETECT); SARS-COV-2 Not Detected (NOT DETECT)
[2021-09-28] MEDS: remdesivir 200 MG in sodium chloride 0.9% (100 ml) 60 ML 100 MG IV (15:29)
[2021-09-28] MEDS: acetaminophen 650 mg Supp PR (15:29)
[2021-09-28] MEDS: iohexol 300 mg/mL 100 mL Btl IV (15:54)
--- NOTE | 2021-09-28 16:46 | P.HP_ITS ---
Providers/Chief Complaint Admitting Physician: Max Moreno MD Primary Care Provider: Paulina Crawford MD Chief Complaint: AMS; COVID + History of Present Illness History taken through daughter, chart review and conversation with the ER physician. Avis Walls is a 71 year old female past medical history of advanced dementia, care home resident, hypertension, recurrent UTIs most recently couple of weeks ago for which she was on oral antibiotics, bedsore, tested positive for COVID-19 on Wednesday when she was tested 09/23 was brought into the ER from care home today because of being more altered than usual and possible hypoxia on room air. On arrival to the ER patient was obtunded with a GCS of 3 though was not intubated because of DNR status. Apparently she had saturation of 80% on room air on arrival. On my examination patient has received 500 cc of normal saline, on 3 L saturating 97%, wakes up to verbal stimulus though not able to follow commands or answer questions. Patient is dehydrated on examination. T-max 100.7 since arrival to the ER. Blood work in the ER shows white count of 25.7, hemoglobin of 14.4, ABG showing a pH of 7.5, PCO2 34, PO2 of 52, chemistry showing a sodium of 146, potassium 3.7, creatinine of 0.6, bilirubin of 1.5, baseline troponin of 27, BNP of 211, UA showing negative nitrite, 2+ leuk esterase, 2+ bacteria, COVID-19 PCR done in the ER negative. CT results as below. Review of Systems General: Reports: ROS unobtainable due to mental status Medications/Allergies Home Medications Medication Instructions Recorded Confirmed Last Taken Type acetaminophen 325 mg capsule 650 mg PO TID PRN 06/30/21 09/28/21 Unknown History amlodipine 5 mg tablet 5 mg PO DAILY 06/30/21 09/28/21 Unknown History atorvastatin 20 mg tablet 20 mg PO DAILY 06/30/21 09/28/21 Unknown History divalproex 125 mg tablet,delayed See Rx Instructions .ROUTE .COMPLEX 06/30/21 09/28/21 Unknown History release gabapentin 300 mg capsule 300 mg PO TID 06/30/21 09/28/21 Unknown History lisinopril 20 mg tablet 20 mg PO DAILY 06/30/21 09/28/21 Unknown History melatonin 3 mg capsule 3 mg PO BEDTIME 06/30/21 09/28/21 Unknown History metoprolol succinate 50 mg 50 mg PO DAILY 06/30/21 09/28/21 Unknown History tablet,extended release 24 hr miconazole nitrate 2 % topical 1 applic TOPICAL BID 06/30/21 09/28/21 Unknown History powder (Micro-Guard) multivitamin with minerals-folic 1 tab PO DAILY 06/30/21 09/28/21 Unknown History acid 0.4 mg tablet (One Daily Womens 50 Plus) pantoprazole 40 mg tablet,delayed 40 mg PO DAILY 06/30/21 09/28/21 Unknown History release trazodone 150 mg tablet 150 mg PO BEDTIME 06/30/21 09/28/21 Unknown History zinc oxide 20 % topical ointment 1 applic TOPICAL TID 06/30/21 09/28/21 Unknown History neomycin-bacitracn Zn-polymyx 3.5 1 applic TOPICAL DAILY 09/28/21 09/28/21 Unknown History mg-400 unit-5,000 unit/gram top oint (Triple Antibiotic) quetiapine 50 mg tablet (Seroquel) 75 mg PO BEDTIME 09/28/21 09/28/21 Unknown History Allergies Allergy/AdvReac Type Severity Reaction Status Date / Time erythromycin base Allergy Unknown Verified 06/04/21 09:31 hydrocodone Allergy Unknown Verified 06/04/21 09:31 meperidine Allergy Unknown Verified 06/04/21 09:31 pravastatin Allergy Unknown Verified 06/04/21 09:31 pseudoephedrine Allergy Unknown Verified 06/04/21 09:31 Sulfa (Sulfonamide Allergy Unknown Verified 06/04/21 09:31 Antibiotics) decongestant Allergy Unknown Uncoded 06/04/21 09:31 PFSH Acute PFSH: Medical History Altered mental status COVID Dementia DNR (do not resuscitate) Hypertension Psychiatric care Surgical History History of cholecystectomy Family History Other Psychiatric illness Denies family history of Stroke Social History Smoking and tobacco status: never smoked Alcohol intake: never Substance/Drug Use: never Adopted: No Caregiver/support person: Yes Lives independently: No Household members: other Housing: Assisted Vitals/I&O/Wt Last Vital Signs Temp 100.7 F H 09/28/21 13:32 Pulse 103 H 09/28/21 15:32 Resp 19 H 09/28/21 15:32 BP 182/93 09/28/21 15:32 Pulse Ox 98 09/28/21 15:32 09/28/21 09/28/21 09/28/21 06:59 14:59 22:59 Intake Total 50 / 50 250 / 300 Balance 50 / 50 250 / 300 Physical Exam Narrative: EXAM NARRATIVE: General: No acute distress,, wakes up to deep physical stimulus, not following commands, drowsy, maintaining airway HEENT: PERRLA, pupils bilaterally equal and reactive Chest: Bilateral bronchial breath sounds, crackles present in bilateral lower zone, more on the right side equal good air entry bilaterally CVS: S1-S2 regular, no murmurs, tachycardia, no gallops, no rubs Abdomen: Soft, nontender, no organomegaly, bowel sounds present Neuro: No focal deficits, no facial deformity, AO x3, power 5/5 in all limbs Data : 09/28/21 12:00 09/28/21 12:00 Other Labs: Radiology Impressions Chest CTA 09/28/21 12:39 IMPRESSION: 1. Negative for pulmonary embolism. 2. Debris noted within the trachea and mainstem bronchi/proximal bronchial branches. There are few areas of ground-glass opacities and subsegmental atelectasis in the left lung which may relate to mucous plugging. Chest X-Ray 09/28/21 12:39 IMPRESSION: No acute findings. Head CT 09/28/21 12:39 IMPRESSION: 1. No acute intracranial abnormality. 2. Advanced diffuse cerebral atrophy and sequela of chronic small vessel ischemic disease. Old lacunar infarcts in the basal ganglia and left cerebellum. Abdomen/Pelvis CT 09/28/21 14:45 IMPRESSION: 1. Negative for focal acute inflammatory process in the abdomen or pelvis. 2. Bibasilar left greater than right airspace infiltrates. 3. Cholecystectomy. 4. Diverticulosis without diverticulitis. 5. Young catheter in the urinary bladder with air presumed iatrogenic. Laboratory Results WBC 25.7 10^3/uL (4.0-10.0) H 09/28/21 12:00 RBC 4.90 10^6/uL (4.1-5.3) 09/28/21 12:00 Hgb 14.4 g/dL (11.5-15.3) 09/28/21 12:00 Hct 45.2 % (37.0-47.0) 09/28/21 12:00 MCV 92.2 fl (81-99) 09/28/21 12:00 MCH 29.4 pg (28.0-34.0) 09/28/21 12:00 MCHC 31.9 g/dL (30.0-36.0) 09/28/21 12:00 RDW 13.3 % (12.1-15.1) 09/28/21 12:00 Plt Count 307 10^3/cmm (130-400) 09/28/21 12:00 MPV 11.9 fL (7.4-10.4) H 09/28/21 12:00 Neut % (Auto) 88.6 % 09/28/21 12:00 Lymph % (Auto) 5.4 % 09/28/21 12:00 [place] % (Auto) 5.0 % 09/28/21 12:00 Eos % (Auto) 0.2 % 09/28/21 12:00 Baso % (Auto) 0.4 % 09/28/21 12:00 Neut # (Auto) 22.79 10^3/uL (1.8-7.7) H 09/28/21 12:00 Lymph # (Auto) 1.4 10^3/uL (0.8-4.8) 09/28/21 12:00 [place] # (Auto) 1.3 10^3/uL (0.2-0.9) H 09/28/21 12:00 Eos # (Auto) 0.1 10^3/uL (0.0-0.8) 09/28/21 12:00 Baso # (Auto) 0.1 10^3/uL (0.0-0.1) 09/28/21 12:00 Nucleated RBC % (auto) 0 % 09/28/21 12:00 Nucleated RBCs # 0.0 /100WBC 09/28/21 12:00 Specimen Type Arterial 09/28/21 13:02 Sample Site Radial, right 09/28/21 13:02 ABG pH 7.50 (7.35-7.45) H 09/28/21 13:02 ABG pCO2 34.2 mmHg (35-45) L 09/28/21 13:02 ABG pO2 52.7 mmHg (80.0-100.0) L 09/28/21 13:02 ABG HCO3 26.5 mmol/L (22-26) H 09/28/21 13:02 ABG O2 Saturation 90.3 09/28/21 13:02 ABG Base Excess 3.6 mmol/L (-2.0-2.0) H 09/28/21 13:02 Mark Test Pos 09/28/21 13:02 A-a O2 Gradient 24.6 mmHg (5-10) H 09/28/21 13:02 Hematocrit 45.4 % (37-47) 09/28/21 13:02 Hgb O2 Saturation 89.0 % (95-100) L 09/28/21 13:02 Carboxyhemoglobin 1.0 %THgb (0.4-20.1) 09/28/21 13:02 Methemoglobin 0.5 % (0.4-1.5) 09/28/21 13:02 Total Hemoglobin 14.8 g/dL (12-16) 09/28/21 13:02 Sodium 149.0 mmol/L (131-143) H 09/28/21 13:02 Potassium 3.8 mmol/L (3.5-5.0) 09/28/21 13:02 Glucose 197.0 mg/dL (70-115) H 09/28/21 13:02 Ionized Calcium 1.2 mmol/L (1.1-1.4) 09/28/21 13:02 O2 Delivery Device Nc 09/28/21 13:02 O2 Liters/Min 5.0 % 09/28/21 13:02 FiO2 40.0 % 09/28/21 13:02 Tumbling Barrel Painter ID Ed 09/28/21 13:02 Sodium 146 mmol/L (136-145) H 09/28/21 12:00 Potassium 3.7 mmol/L (3.5-5.1) 09/28/21 12:00 Chloride 107 mmol/L (98-107) 09/28/21 12:00 Carbon Dioxide 24 mmol/L (22-29) 09/28/21 12:00 Anion Gap 18.7 (5-19) 09/28/21 12:00 BUN 18 mg/dL (8-23) 09/28/21 12:00 Creatinine 0.6 mg/dL (0.5-0.9) 09/28/21 12:00 GFR Calculation Not Reportable 09/28/21 12:00 Glucose 167 mg/dL (65-115) H 09/28/21 12:00 Calculated Osmolality 308 mOsm/kg (285-295) H 09/28/21 12:00 Lactate 1.4 mmol/L (0.5-2.2) 09/28/21 14:38 Calcium 9.1 mg/dL (8.5-10.5) 09/28/21 12:00 Total Bilirubin 1.5 mg/dL (0.15-1.2) H 09/28/21 12:00 AST 25 U/L (0-32) 09/28/21 12:00 ALT 29 U/L (0-33) 09/28/21 12:00 Alkaline Phosphatase 58 IU/L (35-105) 09/28/21 12:00 Troponin T Baseline 27 ng/L (0-10) H 09/28/21 12:00 Troponin T 120 Minute 31.69 ng/L (0-10) H 09/28/21 14:38 Delta Troponin T 4.69 ABS# (0-10) 09/28/21 14:38 NT-Pro-B Natriuret Pep 211 pg/mL (0-125) H 09/28/21 12:00 Total Protein 6.8 g/dL (6.6-8.7) 09/28/21 12:00 Albumin 3.7 g/dL (3.5-5.2) 09/28/21 12:00 Globulin 3.1 g/dL (1.3-4.6) 09/28/21 12:00 Lipase 23 U/L (13-60) 09/28/21 12:00 Urine Color Dea (Yellow) 09/28/21 13:12 Urine Appearance Sl hazy (CLEAR) 09/28/21 13:12 Urine pH 5 (5-7) 09/28/21 13:12 Ur Specific [place] 1.025 (1.005-1.030) 09/28/21 13:12 Urine Protein 1+ (Negative) H 09/28/21 13:12 Urine Glucose (UA) Norm (Normal) 09/28/21 13:12 Urine Ketones 1+ (Negative) H 09/28/21 13:12 Urine Blood Neg (Negative) 09/28/21 13:12 Urine Nitrate Negative (Negative) 09/28/21 13:12 Urine Bilirubin 2+ (Negative) H 09/28/21 13:12 Urine Urobilinogen 8 mg/dL (Negative) H 09/28/21 13:12 Ur Leukocyte Esterase 2+ (Negative) H 09/28/21 13:12 Urine RBC None /hpf (0-2) 09/28/21 13:12 Urine WBC 15-25 /hpf (0-5) H 09/28/21 13:12 Ur Squamous Epith Cells 5-10 /hpf (0-5) H 09/28/21 13:12 Amorphous Sediment Not Reportable 09/28/21 13:12 Urine Bacteria 2+ /hpf (NONE) H 09/28/21 13:12 Urine Mucus 2+ /hpf 09/28/21 13:12 Coronavirus 229E (PCR) Not detected (NOT DETECT) 09/28/21 13:05 SARS-CoV-2 (PCR) Not detected (NOT DETECT) 09/28/21 13:05 Micro: Microbiology 09/28/21 14:35 Blood Culture - Preliminary Blood SPECIMEN COLLECTED 09/28/21 13:40 Blood Culture - Preliminary Blood SPECIMEN COLLECTED A&P Assessment and plan (1) Altered mental status: Status: Acute (2) Hypoxia: Status: Acute (3) Pneumonia: Status: Acute (4) COVID: Status: Acute (5) Dementia: Status: Acute (6) Hypertension: Status: Acute (7) DNR (do not resuscitate): Status: Acute Plan Altered mental status: Most likely secondary to sepsis from pneumonia, possibly from recent COVID-19 leading to worsening of advanced dementia. Check procalcitonin, sputum culture, bacterial antigen, urine Legionella, sputum culture, lactate, blood culture, MRSA swab, stool studies to rule out C. difficile, flu swab. CT chest abdomen pelvis results appreciated. CT head results appreciated. Patient does have a pressure injury. Continue with wound care. Will consult surgery if debridement needed. Hypoxia: Most likely secondary to COVID-19 versus aspiration pneumonia. Infectious work-up as above. Oxygen supplementation keeping saturation over 90%. DuoNebs every 6 hour, budesonide twice daily. Chest vest For now continue with vancomycin and Zosyn. Will de-escalate antibiotics as per culture results. COVID-19: Tested +5 days ago. COVID-19 PCR done in the ER negative. Repeat COVID-19 PCR and COVID-19 rapid antigen. Given remdesivir and dexamethasone in the ER. For now we will hold off on treatment until repeat COVID-19 results came come back positive. Isolation for 10 days from positive result on 09/23. Hypertension: Blood pressure less than 140/90 [place]. For now continue with home medication of amlodipine, lisinopril, metoprolol. Dementia Continue other chronic medications. CODE STATUS: DNR/DNI. NPO. Speech evaluation. Protonix for PUD prophylaxis. Heparin 5000 every 8 hourly for DVT prophylaxis Attestations Medical Necessity Statement*: Admission for more than 2 midnights for management of altered mental status secondary to sepsis, hypoxia secondary to possibly aspiration pneumonia, recent COVID-19 in setting of advanced dementia in a care home resident Time Spent in Patient Care: Greater than 35 minutes Coding Level of Care Code Acute Sheep Rancher for [facility] Diagnoses Hypoxia R09.02 Pneumonia J18.9 COVID U07.1 Dementia F03.90 Hypertension I10 DNR (do not resuscitate) Z66 Altered mental status R41.82
[2021-09-28] MEDS: dextrose 5%-sod chloride 0.45% 1,000 ML 75 ML IV (17:06)
[2021-09-28 17:09] LABS: D Dimer 1.16 ug/mIFEU (0-0.59)
[2021-09-28 17:18] LABS: C Reactive Protein 51.8 mg/L (0.0-4.9); Thyroid Stimulating Hormone 1.05 uIU/mL (0.27-4.20)
[2021-09-28 17:19] LABS: NT Pro B Type Natriuretic Pept 232 pg/mL (0-125); Procalcitonin 0.05 ng/mL (0-0.5)
[2021-09-28 17:29] LABS: Iron 15 ug/dL (37-145); Percent Saturation 7.6 % (20-50); Total Iron Binding Capacity 195 mcg/dl; Unsaturated Iron Binding 180 ug/dL (112-347)
[2021-09-28 17:46] LABS: Influenza A by IFA Negative (Negative); Influenza B by IFA Negative (Negative)
[2021-09-28 17:54] LABS: SARS Covid-2 Antigen Negative (Negative)
--- NOTE | 2021-09-28 18:41 | ECG_ITS ---
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1950 Requested By: Trey Dewitt Order Number: [id number] Reading MD: BABAK JAMES Measurements Intervals [place] Rate: 93 P: 78 MS: 168 QRS: -14 QRSD: 95 T: 99 QT: 381 QTc: 475 Interpretive Statements SINUS RHYTHM POSSIBLE LEFT ATRIAL ENLARGEMENT [-0.1mV P-WAVE IN V1/V2] INFERIOR MYOCARDIAL INFARCTION , PROBABLY OLD [40+ ms Q WAVE AND/OR ST/T ABNORMALITY IN II/aVF] Compared to ECG 09/28/2021 14:58:34 Myocardial infarct finding now present T-wave abnormality no longer present Electronically Signed On 09-28-2021 19:17:27 HASH SLINGER by BABAK JAMES [id number]
--- NOTE | 2021-09-28 19:15 | PC.NURSE ---
Report called to Jeremy on Med surg.
[2021-09-28 19:52] LABS: Lactic Sepsis W/Reflex 1.5 mmol/L (0.5-2.2)
[2021-09-28 19:59] LABS: Troponin 5 6HR 31.52 ng/L (0-10)
[2021-09-28 20:01] LABS: Troponin 5 6HR Delta 4.52 ng/L (0-12)
[2021-09-28 20:42] LABS: Adenovirus Not Detected (NOT DETECT); Chlamydia Pneumoniae Not Detected (NOT DETECT); Coronavirus 229E,HKU1,NL63,OC4 Not Detected (NOT DETECT); Human Metapneumovirus Not Detected (NOT DETECT); Human Rhinovirus/Enterovirus Not Detected (NOT DETECT); Influenza A Not Detected (NOT DETECT); Influenza A H1 Not Detected (NOT DETECT); Influenza A H1-2009 Not Detected (NOT DETECT); Influenza A H3 Not Detected (NOT DETECT); Influenza B Not Detected (NOT DETECT); Mycoplasma Pneumoniae Not Detected (NOT DETECT); Parainfluenza Virus Type 1 Not Detected (NOT DETECT); Parainfluenza Virus Type 2 Not Detected (NOT DETECT); Parainfluenza Virus Type 3 Not Detected (NOT DETECT); Parainfluenza Virus Type 4 Not Detected (NOT DETECT); Respiratory Syncytial Virus A Not Detected (NOT DETECT); Respiratory Syncytial Virus B Not Detected (NOT DETECT); SARS-COV-2 Detected (NOT DETECT)
[2021-09-28] MEDS: heparin 5,000 unit/mL INJ 1 mL 5000 UNIT SUBCUT (21:41)
[2021-09-28] MEDS: pantoprazole 40 mg SDV IVP (21:41)
[2021-09-28] MEDS: ipratropium-albuterol 3 mL Neb INHALATION (22:14)
[2021-09-28] MEDS: budesonide 0.5 mg/2 mL Neb INHALATION (22:15)
--- NOTE | 2021-09-28 23:20 | PC.PHAR ---
Pharmacokinetic dosing service Date: 09/28/21 Time: 2319 Objective: Patient: Avis Walls Floor: 272-1 Age: 71 yo Serum creatinine: 0.6 mg/dL Height: 66.0 Inches Weight (kg): 72.983 Diagnosis: Relevant medical/social history: Cultures and sensitivities: Other labs: Assessment: IBW (kg): 59.30 Dosing wt(kg): 72.983 Estimated Creatinine clearance (ml/min): 78.2 CRCL method: Cockcroft and Gault using ibw(default). Drug selected: Vancomycin Loading dose (mg): 0 Vd (liters): 65.7 (factor used: 0.9 L/kg) Karlos (hr-1): 0.069 Half life (hrs): 10.05 Recommended dose: 1250 mg Interval: 12 hrs Infusion time (hrs): 1.5 Predicted peak (mcg/mL): 32.1 Predicted trough (mcg/mL): 15.55 Total body weight is being used for vancomycin dosing. Renal function is stable [ ] /unstable [ ] Recommendations: Give Vancomycin 1250 mg q 12 hrs with an expected Cpeak of 32.1 mcg/ml and an expected Ctrough of 15.55 mcg/ml Renal dosing of other antibiotics (review renal dosing of other medications and list guidelines here): Thank you for the consult, will continue to follow. Signature: Aury Lafleur [facility]
[2021-09-29] VITALS (10 sets, daily range): BP systolic 107–167; BP diastolic 64–77; PULSE 62–101; RESP 16–24; TEMP 36.8–37.6; O2SAT 90–98; BMI 25.9
[2021-09-29] MEDS: piperacillin-tazobactam 3.375 GM in sodium chloride 0.9% (plus) 50 ML IV ×3 (00:51→15:25)
[2021-09-29] MEDS: ipratropium-albuterol 3 mL Neb INHALATION ×3 (02:29→20:36)
[2021-09-29] MEDS: heparin 5,000 unit/mL INJ 1 mL 5000 UNIT SUBCUT ×3 (04:38→20:38)
[2021-09-29 04:50] LABS: Basophils # 0.1 10^3/uL (0.0-0.1); Basophils % 0.4 %; Hematocrit 40.3 % (37.0-47.0); Hemoglobin 12.6 g/dL (11.5-15.3); Lymphocytes # 1.3 10^3/uL (0.8-4.8); Lymphocytes % 6.8 %; Mean Corpuscular HGB Conc 31.3 g/dL (30.0-36.0); Mean Corpuscular Hemoglobin 29.6 pg (28.0-34.0); Mean Corpuscular Volume 94.8 fl (81-99); Monocytes # 1.1 10^3/uL (0.2-0.9); Monocytes % 5.8 %; Neutrophils # 16.63 10^3/uL (1.8-7.7); Neutrophils % 86.5 %; Nucleated Red Blood Cells % 0 %; Platelet Count 247 10^3/cmm (130-400); Red Blood Count 4.25 10^6/uL (4.1-5.3); Red Cell Distribution Width 13.2 % (12.1-15.1); White Blood Count 19.2 10^3/uL (4.0-10.0)
[2021-09-29] MEDS: vancomycin 1,250 MG/250 ML PIGGYBACK 250 MG IV ×2 (04:57→18:38)
[2021-09-29 05:24] LABS: Alanine Aminotransferase 21 U/L (0-33); Albumin Level 3.2 g/dL (3.5-5.2); Alkaline Phosphatase 56 IU/L (35-105); Anion Gap 15.3 (5-19); Aspartate Amino Transferase 17 U/L (0-32); Blood Urea Nitrogen 18 mg/dL (8-23); Calcium 8.8 mg/dL (8.5-10.5); Carbon Dioxide 24 mmol/L (22-29); Chloride 111 mmol/L (98-107); Cholesterol 162 mg/dL (0-200); Globulin 3.3 g/dL (1.3-4.6); Glucose 174 mg/dL (65-115); HDL Cholesterol 45 mg/dL (60-100); LDL Cholesterol Calculated 98 mg/dL (50-129); Magnesium 1.8 mg/dL (1.7-2.3); Osmolality Calculated 310 mOsm/kg (285-295); Phosphorus 2.2 mg/dL (2.5-4.5); Potassium 3.3 mmol/L (3.5-5.1); Sodium 147 mmol/L (136-145); Total Bilirubin 0.9 mg/dL (0.15-1.2); Total Protein 6.5 g/dL (6.6-8.7); Triglycerides 96 mg/dL (0-150); VLDL Cholestrol Calculation 19 mg/dL (0-30)
[2021-09-29 05:28] LABS: Estmated Average Glucose 157; Hemoglobin A1C 7.1 % (4.0-6.0)
--- NOTE | 2021-09-29 06:00 | XR_ITS ---
WS: [id number] XR chest 1V portable [id number] REASON FOR EXAM: covid FINDINGS: Compared to previous examination of 09/28/2021, reticular and groundglass opacities in both peripheral and lower lung fabian are now evident. No other significant interval change or new finding. XR/XR chest 1V portable [id number] IMPRESSION: Bilateral lung opacities compatible with subacute pneumonitis are now identifia ble.
[2021-09-29] MEDS: atorvastatin 40 mg Tablet 20 MG PO (10:44)
[2021-09-29] MEDS: metoprolol succinate ER (24 HR) 50 mg Tablet PO (10:45)
[2021-09-29] MEDS: gabapentin 300 mg Capsule PO ×2 (10:45→15:07)
[2021-09-29] MEDS: budesonide 0.5 mg/2 mL Neb INHALATION ×2 (11:15→20:36)
[2021-09-29] MEDS: lidocaine 1% 5 ML in potassium chloride premix 100 ML 25 ML IV ×2 (11:43→16:58)
[2021-09-29] MEDS: FUROsemide 10 mg/mL SDV 2mL 20 MG IVP (11:44)
[2021-09-29 12:19] LABS: Glucose Point of Care 207 mg/dL (70-110)
[2021-09-29] MEDS: insulin lispro 100 unit/1 mL SUBCUT ×2 (13:22→18:15)
--- NOTE | 2021-09-29 13:37 | PM.PN ---
Subjective Subjective: Interval history: No acute events overnight. On examination patient on 2 L saturating 82%. Patient is not awake or alert. Responds to physical touch but not able to follow commands. Has remained hemodynamically stable and afebrile. Repeat COVID-19 PCR done yesterday came back positive. Vitals/I&O/Wt Last Vital Signs Temp 98.2 F 09/29/21 12:00 Pulse 71 09/29/21 12:00 Resp 22 H 09/29/21 12:00 BP 107/64 09/29/21 12:00 Pulse Ox 91 09/29/21 12:00 09/28/21 09/29/21 09/29/21 22:59 06:59 14:59 Intake Total 1350 / 1400 50 / 1450 Output Total 400 / 400 Balance 1350 / 1400 -350 / 1050 Weight last 48 hrs Weight 74.026 kg Weight 72.983 kg Weight 72.983 kg Physical Exam Narrative: EXAM NARRATIVE: General: No acute distress, wakes up to deep physical stimulus, not following commands, drowsy, maintaining airway HEENT: PERRLA, pupils bilaterally equal and reactive Chest: Bilateral bronchial breath sounds, crackles present in bilateral lower zone, more on the right side equal good air entry bilaterally CVS: S1-S2 regular, no murmurs, tachycardia, no gallops, no rubs Abdomen: Soft, nontender, no organomegaly, bowel sounds present Neuro: No focal deficits, no facial deformity, AO x3, power 5/5 in all limbs Data : 09/29/21 04:03 09/29/21 04:03 Micro: Microbiology 09/28/21 17:13 MRSA Culture - Final Nose 09/28/21 13:12 Bacterial Antigens - Final Urine Kidney 09/28/21 13:12 Legionella Urinary Antigen - Final Urine Catheterized 09/28/21 14:35 Blood Culture - Preliminary Blood SPECIMEN COLLECTED 09/28/21 13:40 Blood Culture - Preliminary Blood SPECIMEN COLLECTED A&P Assessment and plan (1) Altered mental status: Status: Acute (2) Hypoxia: Status: Acute (3) Pneumonia: Status: Acute (4) COVID: Status: Acute (5) Dementia: Status: Acute (6) Hypertension: Status: Acute (7) DNR (do not resuscitate): Status: Acute Plan Altered mental status: Most likely secondary to sepsis from pneumonia, possibly from recent COVID-19 leading to worsening of advanced dementia. Sepsis criteria met on admission from tachycardia, hypoxia, leukocytosis. Procalcitonin negative, urine Legionella, bacterial antigen, MRSA swab negative. Lactate normal. Blood cultures so far negative. Stool studies awaited. Flu swab negative. Check Depakote levels COVID-19 PCR positive. Patient does have a pressure injury. Continue with wound care. Will consult surgery if debridement needed. Hypoxia: Most likely secondary to COVID-19 versus aspiration pneumonia. Infectious work-up as above. Oxygen supplementation keeping saturation over 90%. DuoNebs every 6 hour, budesonide twice daily. Chest vest. Will need a more formal swallow evaluation once little more awake. For now continue with vancomycin and Zosyn. Will de-escalate antibiotics as per culture results. COVID-19: COVID-19 PCR positive. Dexamethasone 6 mg IV daily for 10 days. Remdesivir to finish a 5-day course. DuoNebs every 6 hour budesonide twice daily. Monitor inflammatory markers including CRP and D-dimer every 48 hours. Hypernatremia: Most likely from poor oral intake. Switch from D5 NS to D5W with 20 mg of potassium at 75 cc/h. Check BMP every 12 hourly. 20 mg of IV push Lasix. Strict input output charting, daily weights. Hypertension: Goal blood pressure less than 140/90 mmHg. Blood pressure is elevated. Increase dose of amlodipine to 10 mg daily, lisinopril to 30 mg daily. Continue with home dose of metoprolol. Dementia Continue other chronic medications. CODE STATUS: DNR/DNI. NPO except medication Speech evaluation. Protonix for PUD prophylaxis. Heparin 5000 every 8 hourly for DVT prophylaxis Attestations Medical Necessity Statement*: Requires further hospitalization for management of altered mental status secondary to COVID-19, hypernatremia, sepsis from COVID-19 and possible aspiration pneumonia. Time Spent in Patient Care: Greater than 35 minutes Coding Level of Care Code Acute Lab Asst for [facility] Fwd Diagnoses Altered mental status R41.82 Hypoxia R09.02 Pneumonia J18.9 COVID U07.1 Dementia F03.90 Hypertension I10 DNR (do not resuscitate) Z66
[2021-09-29] MEDS: dexamethasone 4 mg/mL INJ 6 MG IVP (15:06)
[2021-09-29] MEDS: neomycin-poly-bacitracin oint 28 gm 1 APPLIC TOPICAL (15:06)
--- NOTE | 2021-09-29 15:44 | PC.SLP ---
Several attempts were made to awaken the patient to complete her evaluation. She was unable to be awakened despite these numerous attempts. Will continue to monitor and assess when patient is fully able to participate in her evaluation.
--- NOTE | 2021-09-29 16:37 | USCV_ITS ---
Avis Walls Age: 71 Gender: F : 1950 Exam Date: 09/29/2021 08:39 Ordering Phys: Max Moreno MD Technologist: SAMANTHA [place] [facility] [place]: severe cerebral palsy, assess LV function BP: 150 / 73 HR: 105 Rhythm: Sinus tachycardia Technical Quality: Adequate MEASUREMENTS (Male / Female) Normal Values 2D ECHO LV Diastolic Diameter PLAX 2.8 cm 4.2 - 5.9 / 3.9 - 5.3 cm LV Systolic Diameter PLAX 1.8 cm IVS Diastolic Thickness 1.7 cm 0.6 - 1.0 / 0.6 - 0.9 cm IVS Systolic Thickness 1.8 cm LVPW Diastolic Thickness 1.5 cm 0.6 - 1.0 / 0.6 - 0.9 cm LVPW Systolic Thickness 1.6 cm LVOT Diameter 1.8 cm LV Ejection Fraction 2D Teich 66.6 % LV Ejection Fraction MOD 2C 75.9 % LV Ejection Fraction 2C AL 77.1 % LA Diameter 3.8 cm LA Width 2.6 cm LA Height 4.5 cm RA Width 3.0 cm RA Height 4.6 cm Aorta at Sinotubular Diameter 2.6 cm M-MODE Aortic Annulus Diameter 2.3 cm LA Ao Ratio MM 1.6 MV E Point Septal Separation 0.3 cm DOPPLER AV Peak Velocity 193.0 cm/s LVOT Peak Velocity 149.0 cm/s AV Area Cont Eq vti 1.7 cm squared AV Area Cont Eq pk 2.0 cm squared MV Area PHT 1.3 cm squared Mitral E to A Ratio 0.6 MV E' Velocity 68.5 cm/s Mitral E to MV E' Ratio 14.3 Mitral E to LV E' Lateral Ratio 10.9 Mitral E to LV E' Septal Ratio 20.6 TR Peak Velocity 246.0 cm/s TR Peak Gradient 24.2 mmHg TV Peak E Velocity 59.0 cm/s Right Atrial Pressure 5.0 mmHg Pulmonary Artery Systolic Pressu 29.2 mmHg PV Peak Velocity 104.0 cm/s RV Acceleration Time 0.1 s RV Ejection Time 0.3 s RV AcT/ET 0.3 FINDINGS Left Ventricle Normal left ventricular cavity size and systolic function. Increased left ventricular wall thickness. Moderate concentric left ventricular hypertrophy. Left ventricular ejection fraction is estimated at 75%. No regional wall motion abnormality. Grade I diastolic dysfunction (abnormal relaxation filling pattern), normal to mildly elevated filling pressures. Right Ventricle Normal right ventricular size and systolic function. Right ventricular systolic pressure 27 mmHg. Right Atrium Normal right atrial size. Right atrial pressure estimated at 3 mmHg. Left Atrium Mildly increased left atrial size. Mitral Valve Moderate to severe mitral annular calcification. Thickened mitral valve. Mild mitral valve stenosis. Mitral valve mean gradient is 5 mmHg. No significant mitral valve regurgitation. Aortic Valve Mildly thickened trileaflet aortic valve. No aortic valve stenosis. No aortic valve regurgitation. Tricuspid Valve Structurally normal tricuspid valve. No tricuspid valve stenosis. Trace to mild tricuspid valve regurgitation. Pulmonic Valve Structurally normal pulmonic valve. No pulmonary valve stenosis. Trace pulmonary valve regurgitation. Pericardium No pericardial effusion. Prominent epicardial fat. Aorta Normal size aortic root and proximal ascending aorta. Normal- sized inferior vena cava with greater than 50% respiratory variation. CONCLUSIONS 1. Normal left ventricular cavity size and systolic function. Moderate concentric left ventricular hypertrophy. Left ventricular ejection fraction is estimated at 75%. No regional wall motion abnormality. Grade I diastolic dysfunction (abnormal relaxation filling pattern), normal to mildly elevated filling pressures. 2. Normal right ventricular size and systolic function. 3. Pulmonary artery pressure estimated at 27 mmHg. 4. Moderate to severe mitral annular calcification. Mild mitral valve stenosis. Mitral valve mean gradient is 5 mmHg. No significant mitral valve regurgitation. 5. No prior similar studies to compare. Raina Rutledge MD (Electronically Signed) Final Date: 29 September 2021 17:01 S
[2021-09-29 17:17] LABS: Valproic Acid Level 10.8 ug/mL (50-100)
[2021-09-29 17:24] LABS: Glucose Point of Care 148 mg/dL (70-110)
--- NOTE | 2021-09-29 18:32 | PC.NURSE ---
Notified Dr Moreno, patient has had a decline in mental status. she only wakes up to painful stimuli. her RR is 14. temp 97.1ax and 155/70 and HR63
[2021-09-29] MEDS: pantoprazole 40 mg SDV IVP (20:38)
[2021-09-29] MEDS: remdesivir 100 MG in sodium chloride 0.9% (100 ml) 100 ML IV (20:38)
[2021-09-29 20:44] LABS: Anion Gap 14.7 (5-19); Blood Urea Nitrogen 15 mg/dL (8-23); Calcium 9.2 mg/dL (8.5-10.5); Carbon Dioxide 21 mmol/L (22-29); Chloride 113 mmol/L (98-107); Glucose 239 mg/dL (65-115); Osmolality Calculated 307 mOsm/kg (285-295); Potassium 4.7 mmol/L (3.5-5.1); Sodium 144 mmol/L (136-145)
[2021-09-29 21:00] LABS: Glucose Point of Care 243 mg/dL (70-110)
[2021-09-30] VITALS (9 sets, daily range): BP systolic 132–142; BP diastolic 74–88; PULSE 66–98; RESP 16–18; TEMP 36.7–36.9; O2SAT 91–96
[2021-09-30] MEDS: piperacillin-tazobactam 3.375 GM in sodium chloride 0.9% (plus) 50 ML IV ×4 (00:16→23:20)
[2021-09-30] MEDS: insulin lispro 100 unit/1 mL SUBCUT ×5 (00:17→23:21)
[2021-09-30] MEDS: lanolin oint 7 gm 1 APPLIC TOPICAL (02:08)
[2021-09-30] MEDS: ipratropium-albuterol 3 mL Neb INHALATION ×3 (02:43→20:57)
[2021-09-30 06:36] LABS: Glucose Point of Care 214 mg/dL (70-110)
[2021-09-30] MEDS: heparin 5,000 unit/mL INJ 1 mL 5000 UNIT SUBCUT ×3 (06:41→23:20)
[2021-09-30] MEDS: vancomycin 1,250 MG/250 ML PIGGYBACK 250 MG IV ×2 (06:41→17:36)
[2021-09-30] MEDS: budesonide 0.5 mg/2 mL Neb INHALATION ×2 (08:16→20:57)
[2021-09-30] MEDS: lisinopril 20 mg Tablet 30 MG PO (08:58)
[2021-09-30] MEDS: atorvastatin 40 mg Tablet 20 MG PO (08:58)
[2021-09-30] MEDS: zinc gluconate 50 mg Tablet PO (08:58)
[2021-09-30] MEDS: gabapentin 300 mg Capsule PO ×2 (08:58→14:33)
[2021-09-30] MEDS: metoprolol succinate ER (24 HR) 50 mg Tablet PO (08:58)
[2021-09-30] MEDS: neomycin-poly-bacitracin oint 28 gm 1 APPLIC TOPICAL (08:59)
[2021-09-30] MEDS: amlodipine 5 mg Tablet 10 MG PO (08:59)
[2021-09-30 11:15] LABS: Glucose Point of Care 158 mg/dL (70-110)
[2021-09-30] MEDS: dexamethasone 4 mg/mL INJ 6 MG IVP (14:33)
--- NOTE | 2021-09-30 15:48 | PM.PN ---
Subjective Subjective: Interval history: Patient was seen this morning, he is alert to person, not to place, not to time, she does not follow commands, she gets agitated during examination, does not follow commands, does say a few words here and there, but they do not make sense to me, currently off oxygen, normotensive, afebrile overnight Vitals/I&O/Wt Last Vital Signs Temp 98.4 F 09/30/21 07:28 Pulse 97 09/30/21 11:39 Resp 18 09/30/21 11:39 BP 137/74 09/30/21 11:39 Pulse Ox 94 09/30/21 11:39 09/30/21 09/30/21 09/30/21 06:59 14:59 22:59 Intake Total 1060 / 2720 300 / 300 Output Total 350 / 750 Balance 710 / 1970 300 / 300 Weight last 48 hrs Weight 80.876 kg Weight 74.026 kg Weight 72.983 kg Weight 72.983 kg Physical Exam Const: COMMON NORMALS: no acute distress EXAM LIMITATIONS: altered mental status ORIENTATION/CONSCIOUSNESS: Yes awake, Yes oriented to person and Yes confused; not oriented to place and not oriented to time Resp: COMMON NORMALS: normal respiratory effort, No retractions, No use of accessory muscles and clear to auscultation bilaterally AUSCULTATION: clear to auscultation bilaterally Cardio: COMMON NORMALS: regular rate, regular rhythm, S1 normal heart sound present and S2 normal heart sound present RATE: regular rate RHYTHM: regular rhythm HEART SOUNDS: S1 normal heart sound present and S2 normal heart sound present GI: COMMON NORMALS: Normal to inspection, nondistended, normoactive bowel sounds present, Soft to palpation, non-tender, No hepatosplenomegaly present, no masses and no bruits PALPATION: Yes Soft to palpation and Yes No hepatosplenomegaly present Extremity: COMMON NORMALS: no pedal edema Neuro: SENSORIUM/ORIENTATION: Yes oriented to person, No oriented to place and No oriented to time Data : 09/29/21 04:03 09/29/21 20:01 Micro: Microbiology 09/28/21 14:35 Blood Culture - Preliminary Blood NEGATIVE TO DATE 09/28/21 13:40 Blood Culture - Preliminary Blood NEGATIVE TO DATE 09/28/21 17:13 MRSA Culture - Final Nose A&P Assessment and plan (1) Altered mental status: Status: Acute (2) Hypoxia: Status: Acute (3) Pneumonia: Status: Acute (4) COVID: Status: Acute (5) Dementia: Status: Acute (6) Hypertension: Status: Acute (7) DNR (do not resuscitate): Status: Acute Plan Altered mental status: Most likely secondary to sepsis from pneumonia, aspiration, possibly from recent COVID-19 leading to worsening of advanced dementia Sepsis criteria met on admission from tachycardia, hypoxia, leukocytosis Procalcitonin negative, urine Legionella, bacterial antigen, MRSA swab negative. Lactate normal. Blood cultures so far negative. Stool studies awaited. Flu swab negative. Depakote level is low COVID-[address] 1. No acute intracranial abnormality. 2. Advanced diffuse cerebral atrophy and sequela of chronic small vessel ischemic disease. Old lacunar infarcts in the basal ganglia and left cerebellum CTA of the chest 1. Negative for pulmonary embolism. 2. Debris noted within the trachea and mainstem bronchi/proximal bronchial branches. There are few areas of ground-glass opacities and subsegmental atelectasis in the left lung which may relate to mucous plugging. Plan -Continue to monitor mentation. -Currently on Zosyn, vancomycin Hypoxia: Most likely secondary to COVID-19 versus aspiration pneumonia. Infectious work-up as above. Oxygen supplementation keeping saturation over 90%. DuoNebs every 6 hour, budesonide twice daily. Chest vest. Will need a more formal swallow evaluation once little more awake. For now continue with vancomycin and Zosyn. Will de-escalate antibiotics as per culture results. COVID-19: COVID-19 PCR positive. Dexamethasone 6 mg IV daily for 10 days. Remdesivir to finish a 5-day course. DuoNebs every 6 hour budesonide twice daily. Monitor inflammatory markers including CRP and D-dimer every 48 hours. Hypernatremia: Most likely from poor oral intake. Resolved Hold fluid therapy Monitor BMP Strict input output charting, daily weights. Hypertension: Goal blood pressure less than 140/90 mmHg. Blood pressure is elevated. Increase dose of amlodipine to 10 mg daily, lisinopril to 30 mg daily. Continue with home dose of metoprolol. Dementia Continue other chronic medications. Patient does have a pressure injury. Continue with wound care. Will consult surgery if debridement needed. CODE STATUS: DNR/DNI. NPO except medication Speech evaluation. Protonix for PUD prophylaxis. Heparin 5000 every 8 hourly for DVT prophylaxis Attestations Medical Necessity Statement*: Patient requires hospitalization for altered mental status, COVID-19 pneumonia Coding Level of Care Code Acute Audio Visual Facilities Engineer for [facility] Fwd History Detailed Exam Detailed Medical Decision Making Moderate Complexity Diagnoses Altered mental status R41.82 Hypoxia R09.02 Pneumonia J18.9 COVID U07.1 Dementia F03.90 Hypertension I10 DNR (do not resuscitate) Z66 Time Spent (min) 25
[2021-09-30 17:11] LABS: Glucose Point of Care 267 mg/dL (70-110)
[2021-09-30] MEDS: dextrose 5%-sod chloride 0.9% 1,000 ML 100 ML IV (17:36)
[2021-09-30 18:15] LABS: Vancomycin Trough 16.6 ug/mL (10-15)
[2021-09-30] MEDS: remdesivir 100 MG in sodium chloride 0.9% (100 ml) 100 ML IV (18:18)
[2021-09-30 21:25] LABS: Glucose Point of Care 249 mg/dL (70-110)
[2021-09-30] MEDS: pantoprazole 40 mg SDV IVP (23:20)
[2021-10-01] VITALS (12 sets, daily range): BP systolic 126–200; BP diastolic 62–92; PULSE 58–90; RESP 16–24; TEMP 36.6–37.1; O2SAT 90–96
[2021-10-01] MEDS: heparin 5,000 unit/mL INJ 1 mL 5000 UNIT SUBCUT ×3 (05:27→21:41)
[2021-10-01] MEDS: vancomycin 1,000 MG in sodium chloride 0.9% 250 ML 250 MG IV ×2 (05:27→17:19)
[2021-10-01] MEDS: dextrose 5%-sod chloride 0.9% 1,000 ML 100 ML IV (05:36)
[2021-10-01 06:39] LABS: Glucose Point of Care 173 mg/dL (70-110)
--- NOTE | 2021-10-01 06:44 | PC.NURSE ---
Patient more alert this morning /does not answer orientation questions/ attempted to give 0600 medications patient not cooperative at this time to assess swallow status.
--- NOTE | 2021-10-01 07:00 | XR_ITS ---
WS: [id number] XR chest 1V portable [id number] REASON FOR EXAM: sob FINDINGS: The chest is stable compared to the examination of 09/29/2021. The heart and mediastinum are within normal limits. Calcified granulomatous disease in both hemithoraces. No acute pulmonary parenchymal or pleural abnormality identified. XR/XR chest 1V portable [id number] IMPRESSION: No acute chest abnormality. No change from previous examination.
[2021-10-01 07:49] LABS: Basophils % 0.2 %; Hematocrit 37.6 % (37.0-47.0); Hemoglobin 11.8 g/dL (11.5-15.3); Lymphocytes # 1.4 10^3/uL (0.8-4.8); Lymphocytes % 11.9 %; Mean Corpuscular HGB Conc 31.4 g/dL (30.0-36.0); Mean Corpuscular Hemoglobin 29.5 pg (28.0-34.0); Mean Platelet Volume 12.3 fL (7.4-10.4); Monocytes # 0.6 10^3/uL (0.2-0.9); Neutrophils # 9.59 10^3/uL (1.8-7.7); Neutrophils % 81.8 %; Nucleated Red Blood Cells % 0 %; Platelet Count 213 10^3/cmm (130-400); Red Cell Distribution Width 12.9 % (12.1-15.1); White Blood Count 11.7 10^3/uL (4.0-10.0)
[2021-10-01 08:18] LABS: Lactate (Lactic Acid level) 1.1 mmol/L (0.5-2.2)
[2021-10-01] MEDS: ipratropium-albuterol 3 mL Neb INHALATION ×3 (08:47→20:51)
[2021-10-01 08:48] LABS: Alanine Aminotransferase 13 U/L (0-33); Albumin Level 3.1 g/dL (3.5-5.2); Alkaline Phosphatase 48 IU/L (35-105); Aspartate Amino Transferase 13 U/L (0-32); Blood Urea Nitrogen 11 mg/dL (8-23); C Reactive Protein 39.1 mg/L (0.0-4.9); Calcium 8.8 mg/dL (8.5-10.5); Carbon Dioxide 18 mmol/L (22-29); Chloride 111 mmol/L (98-107); Creatine Phosphokinase 24 U/L (26-192); Ferritin 305 ng/mL (15-150); Globulin 2.1 g/dL (1.3-4.6); Glucose 192 mg/dL (65-115); Magnesium 1.3 mg/dL (1.7-2.3); Osmolality Calculated 299 mOsm/kg (285-295); Phosphorus 2.2 mg/dL (2.5-4.5); Sodium 142 mmol/L (136-145); Total Bilirubin 0.6 mg/dL (0.15-1.2); Total Protein 5.2 g/dL (6.6-8.7)
[2021-10-01] MEDS: budesonide 0.5 mg/2 mL Neb INHALATION ×2 (08:48→20:51)
[2021-10-01 08:50] LABS: Anion Gap 16.5 (5-19); Potassium 3.5 mmol/L (3.5-5.1)
[2021-10-01] MEDS: zinc gluconate 50 mg Tablet PO (08:50)
[2021-10-01] MEDS: amlodipine 5 mg Tablet 10 MG PO (08:50)
[2021-10-01] MEDS: piperacillin-tazobactam 3.375 GM in sodium chloride 0.9% (plus) 50 ML IV ×2 (08:50→17:18)
[2021-10-01] MEDS: metoprolol succinate ER (24 HR) 50 mg Tablet PO (08:51)
[2021-10-01] MEDS: lisinopril 20 mg Tablet 30 MG PO (08:51)
[2021-10-01] MEDS: gabapentin 300 mg Capsule PO ×3 (08:52→21:41)
[2021-10-01] MEDS: atorvastatin 40 mg Tablet 20 MG PO (08:52)
[2021-10-01] MEDS: insulin lispro 100 unit/1 mL SUBCUT ×4 (08:53→21:57)
[2021-10-01] MEDS: neomycin-poly-bacitracin oint 28 gm 1 APPLIC TOPICAL (09:00)
[2021-10-01 09:51] LABS: NT Pro B Type Natriuretic Pept 696 pg/mL (0-125); Procalcitonin 0.07 ng/mL (0-0.5)
[2021-10-01 11:39] LABS: Glucose Point of Care 231 mg/dL (70-110)
[2021-10-01] MEDS: dexamethasone 4 mg/mL INJ 6 MG IVP (13:40)
--- NOTE | 2021-10-01 15:13 | PC.SOCIAL ---
IMM Update Pg. 2 of IMM updated with Nikki Pickens over the phone. Verbalized understanding. Number provided over the phone.
--- NOTE | 2021-10-01 17:36 | P.PN_ITS ---
Subjective Subjective: Interval history: Patient was seen this morning, she is much more alert and awake, she follows commands, she is alert to person, not to place, not to time, she was able to h [place] thickened liquids from nursing staff, Vitals/I&O/Wt Last Vital Signs Temp 98.8 F 10/01/21 12:00 Pulse 81 10/01/21 16:00 Resp 18 10/01/21 16:00 BP 175/62 10/01/21 16:00 Pulse Ox 93 10/01/21 16:00 10/01/21 10/01/21 10/01/21 06:59 14:59 22:59 Intake Total 1300 / 2760 790 / 790 Output Total 680 / 1080 825 / 825 Balance 620 / 1680 -35 / -35 Weight last 48 hrs Weight 80.83 kg Weight 80.876 kg Physical Exam Const: COMMON NORMALS: no acute distress and alert ORIENTATION/CONSCIOUSNESS: Yes oriented to person; not oriented to place and not oriented to time HENMT: COMMON NORMALS: normocephalic HEAD & SCALP: normocephalic Resp: COMMON NORMALS: normal respiratory effort, No retractions, No use of accessory muscles and clear to auscultation bilaterally AUSCULTATION: clear to auscultation bilaterally Cardio: COMMON NORMALS: regular rate, regular rhythm, S1 normal heart sound present and S2 normal heart sound present RATE: regular rate RHYTHM: regular rhythm HEART SOUNDS: S1 normal heart sound present and S2 normal heart sound present GI: COMMON NORMALS: Normal to inspection, nondistended, normoactive bowel sounds present, Soft to palpation and non-tender PALPATION: Yes Soft to palpation Extremity: COMMON NORMALS: no pedal edema Neuro: SENSORIUM/ORIENTATION: Yes alert, Yes oriented to person, No oriented to place and No oriented to time Data : 10/01/21 07:20 10/01/21 07:20 Micro: Microbiology 09/28/21 04:08 Stool Lactoferrin - Final Stool Enteric Pathogens (PCR) - Final Parasite Antigen Panel - Final C.difficile Toxin B Gene (PCR) - Final Occult Blood (FIT) - Final A&P Assessment and plan (1) Altered mental status: Status: Acute (2) Hypoxia: Status: Acute (3) Pneumonia: Status: Acute (4) COVID: Status: Acute (5) Dementia: Status: Acute (6) Hypertension: Status: Acute (7) DNR (do not resuscitate): Status: Acute Plan Altered mental status: Most likely secondary to sepsis from pneumonia, aspiration, possibly from recent COVID-19 leading to worsening of advanced dementia Sepsis criteria met on admission from tachycardia, hypoxia, leukocytosis Procalcitonin negative, urine Legionella, bacterial antigen, MRSA swab negative. Lactate normal. Blood cultures so far negative. Stool studies awaited. Flu swab negative. Depakote level is low COVID-[address] 1. No acute intracranial abnormality. 2. Advanced diffuse cerebral atrophy and sequela of chronic small vessel ischemic disease. Old lacunar infarcts in the basal ganglia and left cerebellum CTA of the chest 1. Negative for pulmonary embolism. 2. Debris noted within the trachea and mainstem bronchi/proximal bronchial branches. There are few areas of ground-glass opacities and subsegmental atelectasis in the left lung which may relate to mucous plugging. Plan -Continue to monitor mentation. -Currently on Zosyn, vancomycin, de-escalate in the next 24 hours Hypoxia: Most likely secondary to COVID-19 versus aspiration pneumonia. Infectious work-up as above. Oxygen supplementation keeping saturation over 90%. DuoNebs every 6 hour, budesonide twice daily. Chest vest. For now continue with vancomycin and Zosyn. Will de-escalate antibiotics as per culture results. COVID-19: COVID-19 PCR positive. Dexamethasone 6 mg IV daily for 10 days. Remdesivir to finish a 5-day course. DuoNebs every 6 hour budesonide twice daily. Monitor inflammatory markers including CRP and D-dimer every 48 hours. Hypernatremia: Most likely from poor oral intake. Resolved Hold fluid therapy Monitor BMP Strict input output charting, daily weights. Hypertension: Goal blood pressure less than 140/90 mmHg. Blood pressure is elevated. Increase dose of amlodipine to 10 mg daily, lisinopril to 30 mg daily. Continue with home dose of metoprolol. Dementia Continue other chronic medications. Patient does have a pressure injury. Continue with wound care. Will consult liz salvador if debridement needed. CODE STATUS: DNR/DNI. [place] thickened liquids Protonix for PUD prophylaxis. Heparin 5000 every 8 hourly for DVT prophylaxis Attestations Medical Necessity Statement*: Patient requires hospitalization for COVID-19 pneumonia, altered mental status Coding Level of Care Code Acute Front Tender for g Fwd Diagnoses Altered mental status R41.82 Hypoxia R09.02 Pneumonia J18.9 COVID U07.1 Dementia F03.90 Hypertension I10 DNR (do not resuscitate) Z66
[2021-10-01 17:41] LABS: Glucose Point of Care 377 mg/dL (70-110)
[2021-10-01] MEDS: cloNIDine 0.1 mg Tablet PO (18:48)
[2021-10-01] MEDS: divalproex DR 500 mg Tablet PO (21:41)
[2021-10-01] MEDS: trazodone 150 mg Tablet PO (21:41)
[2021-10-01 22:52] LABS: Glucose Point of Care 274 mg/dL (70-110)
[2021-10-01] MEDS: remdesivir 100 MG in sodium chloride 0.9% (100 ml) 100 ML IV (23:41)
[2021-10-02] VITALS (13 sets, daily range): BP systolic 110–164; BP diastolic 65–78; PULSE 55–79; RESP 16–20; TEMP 36.6–36.9; O2SAT 90–97
[2021-10-02] MEDS: dextrose 5%-sod chloride 0.9% 1,000 ML 100 ML IV (00:19)
[2021-10-02] MEDS: magnesium sulfate premix 4 GM/100 ML PREMIX IV (00:34)
[2021-10-02] MEDS: ipratropium-albuterol 3 mL Neb INHALATION ×3 (02:54→15:13)
[2021-10-02] MEDS: piperacillin-tazobactam 3.375 GM in sodium chloride 0.9% (plus) 50 ML IV ×2 (03:03→12:10)
[2021-10-02] MEDS: vancomycin 1,000 MG in sodium chloride 0.9% 250 ML 250 MG IV ×2 (04:47→22:50)
[2021-10-02] MEDS: heparin 5,000 unit/mL INJ 1 mL 5000 UNIT SUBCUT ×3 (04:47→21:28)
[2021-10-02 06:48] LABS: Basophils % 0.3 %; Eosinophils % 0.1 %; Hematocrit 36.2 % (37.0-47.0); Hemoglobin 11.8 g/dL (11.5-15.3); Lymphocytes # 1.2 10^3/uL (0.8-4.8); Lymphocytes % 16.8 %; Mean Corpuscular HGB Conc 32.6 g/dL (30.0-36.0); Mean Corpuscular Hemoglobin 30.3 pg (28.0-34.0); Mean Corpuscular Volume 92.8 fl (81-99); Mean Platelet Volume 12.8 fL (7.4-10.4); Monocytes # 0.5 10^3/uL (0.2-0.9); Monocytes % 6.5 %; Neutrophils # 5.54 10^3/uL (1.8-7.7); Neutrophils % 74.9 %; Nucleated Red Blood Cells % 0 %; Platelet Count 204 10^3/cmm (130-400); Red Cell Distribution Width 12.9 % (12.1-15.1); White Blood Count 7.4 10^3/uL (4.0-10.0)
[2021-10-02] MEDS: quetiapine 25 mg Tablet 75 MG PO (06:57)
[2021-10-02 06:58] LABS: Glucose Point of Care 223 mg/dL (70-110)
[2021-10-02 07:01] LABS: Alanine Aminotransferase 11 U/L (0-33); Albumin Level 3.2 g/dL (3.5-5.2); Alkaline Phosphatase 50 IU/L (35-105); Blood Urea Nitrogen 10 mg/dL (8-23); C Reactive Protein 17.2 mg/L (0.0-4.9); Calcium 8.1 mg/dL (8.5-10.5); Carbon Dioxide 17 mmol/L (22-29); Chloride 109 mmol/L (98-107); Globulin 1.8 g/dL (1.3-4.6); Glucose 193 mg/dL (65-115); Osmolality Calculated 302 mOsm/kg (285-295); Sodium 144 mmol/L (136-145); Total Bilirubin 0.4 mg/dL (0.15-1.2)
[2021-10-02 07:08] LABS: Anion Gap 22.7 (5-19); Aspartate Amino Transferase 14 U/L (0-32); Potassium 4.7 mmol/L (3.5-5.1)
[2021-10-02 07:15] LABS: Lactate (Lactic Acid level) 4.5 mmol/L (0.5-2.2)
[2021-10-02 07:20] LABS: NT Pro B Type Natriuretic Pept 788 pg/mL (0-125); Procalcitonin 0.05 ng/mL (0-0.5)
[2021-10-02 07:30] LABS: Creatine Phosphokinase 19 U/L (26-192); Ferritin 213 ng/mL (15-150)
[2021-10-02 07:34] LABS: Magnesium 2.8 mg/dL (1.7-2.3); Phosphorus 4.8 mg/dL (2.5-4.5)
[2021-10-02] MEDS: budesonide 0.5 mg/2 mL Neb INHALATION (10:42)
[2021-10-02 11:22] LABS: Glucose Point of Care 157 mg/dL (70-110)
--- NOTE | 2021-10-02 11:49 | XR_ITS ---
WS: [id number] PORTABLE CHEST HISTORY: sob COMPARISON: 10/01/2021 Minimal subsegmental atelectasis at the LEFT lung base. Otherwise lungs are clear. No pneumonia. No p leural effusion or pneumothorax. Cardiac size: Normal. Mediastinum/Aorta: Mild atherosclerosis aorta. No osseous abnormality seen. XR/XR chest 1V portable [id number] IMPRESSION: Very minimal subsegmental atelectasis at the LEFT lung base. No pneumonia.
[2021-10-02] MEDS: zinc gluconate 50 mg Tablet PO (11:57)
[2021-10-02] MEDS: gabapentin 300 mg Capsule PO ×3 (11:57→21:27)
[2021-10-02] MEDS: atorvastatin 40 mg Tablet 20 MG PO (11:57)
[2021-10-02] MEDS: sodium bicarbonate 8.4% 1 mEq/mL 50mL Syr 50 MEQ IVP (12:10)
[2021-10-02] MEDS: insulin lispro 100 unit/1 mL SUBCUT ×3 (12:12→21:28)
[2021-10-02 14:08] LABS: ABG PCO2 32.8 mmHg (35-45); ABG PH Result 7.47 (7.35-7.45); Arterial Blood Gas Hematocrit 35.5 % (37-47); Base Excess ABG 0.7 mmol/L (-2.0-2.0); Blood Gas Allen Test Pos; Blood Gas Operator Identificat glc; Blood Gas Sample Site Radial, right; Blood Gas Sample Type Arterial; HCO3 ABG 23.9 mmol/L (22-26); Oxygen Device ROOM AIR; PO2 ABG 76.2 mmHg (80.0-100.0)
[2021-10-02] MEDS: dexamethasone 4 mg/mL INJ 6 MG IVP (14:08)
--- NOTE | 2021-10-02 15:01 | P.PN_ITS ---
Subjective Subjective: Interval history: Overnight patient remained afebrile, normotensive, on room air, this morning when examined her, she did not respond to her name, she did awaken with sternal rub, swatted me away, but falls back asleep, according to nursing staff all she has had his Seroquel, no other sedating medications overnight Vitals/I&O/Wt Last Vital Signs Temp 98.4 F 10/02/21 12:00 Pulse 67 10/02/21 12:00 Resp 18 10/02/21 12:00 BP 133/78 10/02/21 12:00 Pulse Ox 91 10/02/21 12:00 10/02/21 10/02/21 10/02/21 06:59 14:59 22:59 Intake Total 1309.0909 / 2399.0909 1660 / 1660 Output Total 700 / 1525 150 / 150 Balance 609.0909 / 874.0909 1510 / 1510 Weight last 48 hrs Weight 83.036 kg Weight 80.83 kg Physical Exam Const: COMMON NORMALS: no acute distress EXAM LIMITATIONS: altered mental status OTHER: Alert to person, not to place, not to time Resp: COMMON NORMALS: normal respiratory effort, No retractions, No use of accessory muscles and clear to auscultation bilaterally AUSCULTATION: clear t o auscultation bilaterally Cardio: COMMON NORMALS: regular rate, regular rhythm, S1 normal heart sound present and S2 normal heart sound present RATE: regular rate RHYTHM: regular rhythm HEART SOUNDS: S1 normal heart sound present and S2 normal heart sound present GI: COMMON NORMALS: Normal to inspection, nondistended, normoactive bowel sounds present, Soft to palpation and non-tender PALPATION: Yes Soft to palpation Extremity: COMMON NORMALS: no pedal edema Data : 10/02/21 05:10 10/02/21 05:10 Micro: Microbiology 09/28/21 13:12 Urine Culture - Final Urine,Clean Catch Gemella species 09/28/21 04:08 Stool Lactoferrin - Final Stool Enteric Pathogens (PCR) - Final Parasite Antigen Panel - Final C.difficile Toxin B Gene (PCR) - Final Occult Blood (FIT) - Final A&P Assessment and plan (1) Altered mental status: Status: Acute (2) Hypoxia: Status: Acute (3) Pneumonia: Status: Acute (4) COVID: Status: Acute (5) Dementia: Status: Acute (6) Hypertension: Status: Acute (7) DNR (do not resuscitate): Status: Acute Plan Altered mental status: Most likely secondary to sepsis from pneumonia, aspiration, possibly from recent COVID-19 leading to worsening of advanced dementia Sepsis criteria met on admission from tachycardia, hypoxia, leukocytosis Procalcitonin negative, urine Legionella, bacterial antigen, MRSA swab negative. Lactate normal. Blood cultures so far negative. Stool studies awaited. Flu swab negative. Depakote level is low COVID-[address] 1. No acute intracranial abnormality. 2. Advanced diffuse cerebral atrophy and sequela of chronic small vessel ischemic disease. Old lacunar infarcts in the basal ganglia and left cerebellum CTA of the chest 1. Negative for pulmonary embolism. 2. Debris noted within the trachea and mainstem bronchi/proximal bronchial branches. There are few areas of ground-glass opacities and subsegmental atelectasis in the left lung which may relate to mucous plugging. Plan -Continue to monitor mentation. -Currently on Zosyn, vancomycin, Elevated lactic acid, 4.5, pH 7.47, PO2 76.2 on 21%, normotensive, afebrile, etiology unclear, continue to monitor Hypoxia: Most likely secondary to COVID-19 versus aspiration pneumonia. Infectious work-up as above. Oxygen supplementation keeping saturation over 90%. DuoNebs every 6 hour, budesonide twice daily. Chest vest. For now continue with vancomycin and Zosyn. Will de-escalate antibiotics as per culture results. COVID-19: COVID-19 PCR positive. Dexamethasone 6 mg IV daily for 10 days. Remdesivir to finish a 5-day course. DuoNebs every 6 hour budesonide twice daily. Monitor inflammatory markers including CRP and D-dimer every 48 hours. Hypernatremia: Most likely from poor oral intake. Resolved Hold fluid therapy Monitor BMP Strict input output charting, daily weights. Hypertension: Goal blood pressure less than 140/90 mmHg. Blood pressure is elevated. Increase dose of amlodipine to 10 mg daily, lisinopril to 30 mg daily. Continue with home dose of metoprolol. Dementia Continue other chronic medications. Patient does have a pressure injury. Continue with wound care. Will consult s urgery if debridement needed. CODE STATUS: DNR/DNI. [place] thickened liquids Protonix for PUD prophylaxis. Heparin 5000 every 8 hourly for DVT prophylaxis Attestations Medical Necessity Statement*: Patient requires hospitalization due to altered mental status, elevated lactic acid Coding Level of Care Code Acute Washing Machine Assembler for [facility] Fw Diagnoses Altered mental status R41.82 Hypoxia R09.02 Pneumonia J18.9 COVID U07.1 Dementia F03.90 Hypertension I10 DNR (do not resuscitate) Z66
--- NOTE | 2021-10-02 15:40 | PC.OT ---
OT EVALUATION ATTEMPTED. PATIENT SLEEPING; WHEN ASKED TO AWAKEN, NODS AND SAYS [facility] BUT DOES NOT AWAKEN OR OPEN HER EYES.
--- NOTE | 2021-10-02 16:09 | PC.PT ---
Attempted PT evaluation 3 times today, unable to gain meaningful arousal of patient for participation with therapy, physician aware of same, will reattempt tomorrow.
[2021-10-02 16:27] LABS: Anion Gap 17.3 (5-19); Blood Urea Nitrogen 12 mg/dL (8-23); Calcium 8.5 mg/dL (8.5-10.5); Carbon Dioxide 21 mmol/L (22-29); Chloride 104 mmol/L (98-107); Glucose 204 mg/dL (65-115); Osmolality Calculated 294 mOsm/kg (285-295); Potassium 3.3 mmol/L (3.5-5.1); Sodium 139 mmol/L (136-145)
[2021-10-02 16:28] LABS: Lactate (Lactic Acid level) 2.4 mmol/L (0.5-2.2)
[2021-10-02 16:33] LABS: Ketone (Acetest) Serum Negative (Negative)
[2021-10-02 16:40] LABS: Vancomycin Trough 18.8 ug/mL (10-15)
[2021-10-02 17:28] LABS: Glucose Point of Care 217 mg/dL (70-110)
[2021-10-02] MEDS: cloNIDine 0.1 mg Tablet PO (18:33)
[2021-10-02 21:06] LABS: Glucose Point of Care 315 mg/dL (70-110)
[2021-10-02] MEDS: trazodone 150 mg Tablet PO (21:27)
[2021-10-02] MEDS: divalproex DR 500 mg Tablet PO (21:27)
[2021-10-02] MEDS: pantoprazole 40 mg SDV IVP ×2 (22:42)
[2021-10-03] VITALS (15 sets, daily range): BP systolic 119–180; BP diastolic 60–79; PULSE 56–96; RESP 17–20; TEMP 36.3–36.7; O2SAT 91–98
[2021-10-03] MEDS: remdesivir 100 MG in sodium chloride 0.9% (100 ml) 100 ML IV (00:02)
[2021-10-03] MEDS: piperacillin-tazobactam 3.375 GM in sodium chloride 0.9% (plus) 50 ML IV (01:01)
--- NOTE | 2021-10-03 03:27 | PC.NURSE ---
0330 Zosyn administration time changed due to last dose administered at 0100 due to no IV access before this time.
[2021-10-03] MEDS: ipratropium-albuterol 3 mL Neb INHALATION ×4 (04:51→21:10)
[2021-10-03] MEDS: heparin 5,000 unit/mL INJ 1 mL 5000 UNIT SUBCUT ×3 (05:43→20:24)
[2021-10-03] MEDS: quetiapine 25 mg Tablet 75 MG PO (05:43)
--- NOTE | 2021-10-03 06:00 | XR_ITS ---
WS: [id number] PORTABLE CHEST HISTORY: covid COMPARISON: 10/02/2021 Improved aeration at the LEFT lung base. No pneumonia identified. No lobar collapse. No pleural effus ion or pneumothorax. Cardiac size: Normal. Mediastinum/Aorta: Mild atherosclerosis aorta. No osseous abnormality seen. XR/XR chest 1V portable [id number] IMPRESSION: Resolved subsegmental atelectasis at the LEFT lung base.
[2021-10-03 06:20] LABS: Glucose Point of Care 152 mg/dL (70-110)
[2021-10-03 06:37] LABS: Basophils % 0.4 %; Eosinophils % 0.1 %; Hematocrit 40.2 % (37.0-47.0); Hemoglobin 12.5 g/dL (11.5-15.3); Lymphocytes # 1.8 10^3/uL (0.8-4.8); Lymphocytes % 23.7 %; Mean Corpuscular HGB Conc 31.1 g/dL (30.0-36.0); Mean Corpuscular Hemoglobin 29.3 pg (28.0-34.0); Mean Corpuscular Volume 94.1 fl (81-99); Mean Platelet Volume 12.4 fL (7.4-10.4); Monocytes # 0.5 10^3/uL (0.2-0.9); Monocytes % 5.9 %; Neutrophils # 5.19 10^3/uL (1.8-7.7); Neutrophils % 67.4 %; Nucleated Red Blood Cells % 0 %; Platelet Count 216 10^3/cmm (130-400); Red Blood Count 4.27 10^6/uL (4.1-5.3); Red Cell Distribution Width 12.8 % (12.1-15.1); White Blood Count 7.7 10^3/uL (4.0-10.0)
[2021-10-03 06:50] LABS: Alanine Aminotransferase 13 U/L (0-33); Albumin Level 3.2 g/dL (3.5-5.2); Alkaline Phosphatase 48 IU/L (35-105); Blood Urea Nitrogen 12 mg/dL (8-23); C Reactive Protein 12.6 mg/L (0.0-4.9); Calcium 9.1 mg/dL (8.5-10.5); Carbon Dioxide 22 mmol/L (22-29); Chloride 105 mmol/L (98-107); Globulin 2.8 g/dL (1.3-4.6); Glucose 132 mg/dL (65-115); Osmolality Calculated 294 mOsm/kg (285-295); Sodium 141 mmol/L (136-145); Total Bilirubin 0.5 mg/dL (0.15-1.2)
[2021-10-03 06:52] LABS: Anion Gap 17.9 (5-19); Aspartate Amino Transferase 14 U/L (0-32); Potassium 3.9 mmol/L (3.5-5.1)
[2021-10-03 07:05] LABS: Magnesium 2.1 mg/dL (1.7-2.3); Phosphorus 2.9 mg/dL (2.5-4.5)
[2021-10-03] MEDS: budesonide 0.5 mg/2 mL Neb INHALATION ×2 (08:48→21:10)
--- NOTE | 2021-10-03 08:50 | PC.PT ---
PT again attempted to evaluate pt. Unable to arouse patient to participate with evaluation. She would not open her eyes and only groaned with tactile stimulation. At this time, pt is not appropriate for PT. If her condition improves, please re-order PT evaluation.
[2021-10-03 08:53] LABS: NT Pro B Type Natriuretic Pept 644 pg/mL (0-125)
--- NOTE | 2021-10-03 09:29 | PC.OT ---
Occupational therapist attempted eval. OT provided tactile cues to attempt to increase patient alertness but was unsuccessful. Plan to hold OT orders until patient is more therapy appropriate. once appropriate, please send new orders.
[2021-10-03] MEDS: cloNIDine 0.1 mg Tablet PO ×2 (10:12→18:22)
[2021-10-03] MEDS: insulin lispro 100 unit/1 mL SUBCUT ×4 (10:12→21:47)
[2021-10-03] MEDS: gabapentin 300 mg Capsule PO (10:13)
[2021-10-03] MEDS: lisinopril 20 mg Tablet 30 MG PO (10:13)
[2021-10-03] MEDS: metoprolol succinate ER (24 HR) 50 mg Tablet PO (10:13)
[2021-10-03] MEDS: zinc gluconate 50 mg Tablet PO (10:13)
[2021-10-03] MEDS: amlodipine 5 mg Tablet 10 MG PO (10:13)
[2021-10-03] MEDS: atorvastatin 40 mg Tablet 20 MG PO (10:14)
[2021-10-03] MEDS: neomycin-poly-bacitracin oint 28 gm 1 APPLIC TOPICAL (10:48)
--- NOTE | 2021-10-03 14:27 | P.PN_ITS ---
Subjective Subjective: Interval history: This morning patient was examined, according to nursing staff, she remains lethargic throughout the night, at times would only respond minimally to sternal rub Overnight afebrile, normotensive, on room air, I examined patient, she does open her eyes, my sternal rub her, is more responsive, but does not follow commands Subsequently I opened all the blinds in her room, with the help of nursing staff sat her up in bed, She was reexamined, she still a bit drowsy, but is much more alert and awake, she says a few words here and there, but does not follow commands, nursing staff were able to have her take her medication Vitals/I&O/Wt Last Vital Signs Temp 98.1 F 10/03/21 12:00 Pulse 65 10/03/21 12:00 Resp 18 10/03/21 12:00 BP 154/73 10/03/21 12:00 Pulse Ox 95 10/03/21 12:00 10/02/21 10/03/21 10/03/21 22:59 06:59 14:59 Intake Total 350 / 2010 500 / 2510 200 / 200 Output Total 500 / 650 Balance 350 / 1860 0 / 1860 200 / 200 Weight last 48 hrs Weight 80.422 kg Weight 83.036 kg Physical Exam Const: COMMON NORMALS: no acute distress EXAM LIMITATIONS: altered mental status ORIENTATION/CONSCIOUSNESS: Yes awake; not oriented to person, not oriented to place and not oriented to time Resp: COMMON NORMALS: normal respiratory effort, No retractions, No use of accessory muscles and clear to auscultation bilaterally AUSCULTATION: clear to auscultation bilaterally Cardio: COMMON NORMALS: regular rate, regular rhythm, S1 normal heart sound present and S2 normal heart sound present RATE: regular rate RHYTHM: regular rhythm HEART SOUNDS: S1 normal heart sound present and S2 normal heart sound present GI: COMMON NORMALS: Normal to inspection, nondistended, normoactive bowel sounds present, Soft to palpation, non-tender and No hepatosplenomegaly present PALPATION: Yes Soft to palpation and Yes No hepatosplenomegaly present Extremity: COMMON NORMALS: no pedal edema Neuro: SENSORIUM/ORIENTATION: No oriented to person, No oriented to place and No oriented to time Data : 10/03/21 05:41 10/03/21 05:41 Micro: Microbiology 09/28/21 13:40 Blood Culture - Final Blood NO GROWTH AFTER 5 DAYS 09/28/21 13:12 Urine Culture - Final Urine,Clean Catch Gemella species A&P Assessment and plan (1) Altered mental status: Status: Acute (2) Hypoxia: Status: Acute (3) Pneumonia: Status: Acute (4) COVID: Status: Acute (5) Dementia: Status: Acute (6) Hypertension: Status: Acute (7) DNR (do not resuscitate): Status: Acute Plan Altered mental status: Most likely secondary to sepsis from pneumonia, as piration, possibly from recent COVID-19 leading to worsening of advanced dementia Sepsis criteria met on admission from tachycardia, hypoxia, leukocytosis Procalcitonin negative, urine Legionella, bacterial antigen, MRSA swab negative. Lactate normal. Blood cultures so far negative. Stool studies awaited. Flu swab negative. Depakote level is low COVID-[address] 1. No acute intracranial abnormality. 2. Advanced diffuse cerebral atrophy and sequela of chronic small vessel ischemic disease. Old lacunar infarcts in the basal ganglia and left cerebellum CTA of the chest 1. Negative for pulmonary embolism. 2. Debris noted within the trachea and mainstem bronchi/proximal bronchial branches. There are few areas of ground-glass opacities and subsegmental atelectasis in the left lung which may relate to mucous plugging. -Continues to have some degree of fluctuating sensorium Plan -Continue to monitor mentation. -Stop antibiotics as there is no evidence of infection -Hold all sedating medications including Seroquel, trazodone, gabapentin, monitor mentation for 24 hours, likely discharge in 24 to 48 hours, family would like her to go to [facility] who can take her on Wednesday Elevated lactic acid, never resolved, pH 7.47, PO2 76.2 on 21%, normotensive, afebrile, etiology unclear, continue to monitor Hypoxia: Resolved, off oxygen, most likely secondary to COVID-19 versus aspiration pneumonia. Infectious work-up as above. Oxygen supplementation keeping saturation over 90%. DuoNebs every 6 hour, budesonide twice daily. Chest vest. For now continue with vancomycin and Zosyn. Will de-escalate antibiotics as per culture results. COVID-19: COVID-19 PCR positive. Dexamethasone 6 mg IV daily for 10 days. Remdesivir to finish a 5-day course. DuoNebs every 6 hour budesonide twice daily. Monitor inflammatory markers including CRP and D-dimer every 48 hours. Hypernatremia: Most likely from poor oral intake. Resolved Hold fluid therapy Monitor BMP Strict input output charting, daily weights. Hypertension: Goal blood pressure less than 140/90 mmHg. Blood pressure is elevated. Increase dose of amlodipine to 10 mg daily, lisinopril to 30 mg daily. Continue with home dose of metoprolol. Dementia Continue other chronic medications. Patient does have a pressure injury. Continue with wound care. Will consult surgery if debridement needed. CODE STATUS: DNR/DNI. [place] thickened liquids Protonix for PUD prophylaxis. Heparin 5000 every 8 hourly for DVT prophylaxis Attestations Medical Necessity Statement*: Patient requires hospitalization for COVID-19 pneumonia, altered mental status Coding Level of Care Code Acute Cnc Specialist for [facility] Fw Diagnoses Altered mental status R41.82 Hypoxia R09.02 Pneumonia J18.9 COVID U07.1 Dementia F03.90 Hypertension I10 DNR (do not resuscitate) Z66
--- NOTE | 2021-10-03 15:01 | PC.SOCIAL ---
IMM Updated Updated pt's daughter on IMM. No questions voiced. Provided pt a copy. Initialed, dated, & timed copy in chart.
--- NOTE | 2021-10-03 16:32 | PC.NURSE ---
Got verbal orders from Dr. Walls to hold the gabapentin, depakote, tradazone, seroquel and schwab to be removed.
[2021-10-03] MEDS: acetaminophen 325 mg Tablet 650 MG PO (20:24)
[2021-10-03 21:01] LABS: Glucose Point of Care 173 mg/dL (70-110)
[2021-10-03 21:01] LABS: Glucose Point of Care 177 mg/dL (70-110)
[2021-10-03 21:02] LABS: Glucose Point of Care 223 mg/dL (70-110)
[2021-10-03] MEDS: pantoprazole 40 mg SDV IVP (21:26)
[2021-10-04] VITALS (16 sets, daily range): BP systolic 145–162; BP diastolic 65–92; PULSE 54–95; RESP 16–20; TEMP 36.6–37.2; O2SAT 93–96
[2021-10-04] MEDS: ipratropium-albuterol 3 mL Neb INHALATION ×4 (02:59→19:59)
[2021-10-04 04:48] LABS: Basophils # 0.1 10^3/uL (0.0-0.1); Basophils % 0.8 %; Eosinophils # 0.2 10^3/uL (0.0-0.8); Eosinophils % 1.9 %; Hematocrit 36.9 % (37.0-47.0); Hemoglobin 11.4 g/dL (11.5-15.3); Lymphocytes # 2.6 10^3/uL (0.8-4.8); Lymphocytes % 30.2 %; Mean Corpuscular HGB Conc 30.9 g/dL (30.0-36.0); Mean Corpuscular Hemoglobin 29.7 pg (28.0-34.0); Mean Corpuscular Volume 96.1 fl (81-99); Mean Platelet Volume 12.8 fL (7.4-10.4); Monocytes # 0.8 10^3/uL (0.2-0.9); Neutrophils # 4.72 10^3/uL (1.8-7.7); Neutrophils % 55.9 %; Nucleated Red Blood Cells % 0 %; Platelet Count 178 10^3/cmm (130-400); Red Blood Count 3.84 10^6/uL (4.1-5.3); Red Cell Distribution Width 12.8 % (12.1-15.1); White Blood Count 8.5 10^3/uL (4.0-10.0)
[2021-10-04 05:17] LABS: Procalcitonin 0.04 ng/mL (0-0.5)
[2021-10-04 05:32] LABS: Albumin Level 2.7 g/dL (3.5-5.2); Alkaline Phosphatase 43 IU/L (35-105); Blood Urea Nitrogen 13 mg/dL (8-23); Calcium 8.4 mg/dL (8.5-10.5); Carbon Dioxide 21 mmol/L (22-29); Chloride 106 mmol/L (98-107); Globulin 2.6 g/dL (1.3-4.6); Glucose 122 mg/dL (65-115); Magnesium 1.7 mg/dL (1.7-2.3); Osmolality Calculated 285 mOsm/kg (285-295); Sodium 137 mmol/L (136-145); Total Bilirubin 0.6 mg/dL (0.15-1.2); Total Protein 5.3 g/dL (6.6-8.7)
[2021-10-04] MEDS: heparin 5,000 unit/mL INJ 1 mL 5000 UNIT SUBCUT ×3 (05:33→21:08)
[2021-10-04 05:57] LABS: Alanine Aminotransferase 13 U/L (0-33); Anion Gap 13.5 (5-19); Aspartate Amino Transferase 22 U/L (0-32); Potassium 3.5 mmol/L (3.5-5.1)
[2021-10-04 08:35] LABS: Glucose Point of Care 125 mg/dL (70-110)
[2021-10-04] MEDS: budesonide 0.5 mg/2 mL Neb INHALATION ×2 (08:51→19:59)
[2021-10-04] MEDS: atorvastatin 40 mg Tablet 20 MG PO (09:24)
[2021-10-04] MEDS: cloNIDine 0.1 mg Tablet PO ×2 (09:24→18:35)
[2021-10-04] MEDS: lisinopril 20 mg Tablet 30 MG PO (09:24)
[2021-10-04] MEDS: neomycin-poly-bacitracin oint 28 gm 1 APPLIC TOPICAL (09:25)
[2021-10-04] MEDS: zinc gluconate 50 mg Tablet PO (09:25)
[2021-10-04] MEDS: amlodipine 5 mg Tablet 10 MG PO (09:25)
[2021-10-04] MEDS: metoprolol succinate ER (24 HR) 50 mg Tablet PO (09:25)
[2021-10-04 12:09] LABS: Glucose Point of Care 241 mg/dL (70-110)
--- NOTE | 2021-10-04 12:44 | P.PN_ITS ---
Subjective Subjective: Interval history: Patient was seen this morning she is much more alert, awake, she does not follow commands, and not alert to person or place, patient is actually crying in her room, I was able to hold her hand, and calm her down, she was able to rest, overnight afebrile, normotensive, on room air Vitals/I&O/Wt Last Vital Signs Temp 98.6 F 10/04/21 10:42 Pulse 73 10/04/21 10:42 Resp 18 10/04/21 10:42 BP 152/74 10/04/21 10:42 Pulse Ox 93 10/04/21 10:42 10/03/21 10/04/21 10/04/21 22:59 06:59 14:59 Intake Total 300 / 500 830 / 1330 200 / 200 Balance 300 / 500 830 / 1330 200 / 200 Weight last 48 hrs Weight 81.374 kg Weight 80.422 kg Physical Exam Const: COMMON NORMALS: no acute distress EXAM LIMITATIONS: altered mental s tatus OTHER: Alert to person, not to place, not to time Resp: COMMON NORMALS: normal respiratory effort, No retractions, No use of accessory muscles and clear to auscultation bilaterally AUSCULTATION: clear to auscultation bilaterally Cardio: COMMON NORMALS: regular rate, regular rhythm, S1 normal heart sound present and S2 normal heart sound present RATE: regular rate RHYTHM: regular rhythm HEART SOUNDS: S1 normal heart sound present and S2 normal heart sound present GI: COMMON NORMALS: Normal to inspection, nondistended, normoactive bowel sounds present, Soft to palpation, non-tender and No hepatosplenomegaly present PALPATION: Yes Soft to palpation and Yes No hepatosplenomegaly present Extremity: COMMON NORMALS: no pedal edema Psych: COMMON NORMALS: mental status grossly normal Data : 10/04/21 03:50 10/04/21 03:50 Micro: Microbiology 09/28/21 14:35 Blood Culture - Final Blood NO GROWTH AFTER 5 DAYS 09/28/21 13:40 Blood Culture - Final Blood NO GROWTH AFTER 5 DAYS A&P Assessment and plan (1) Altered mental status: Status: Acute (2) Hypoxia: Status: Acute (3) Pneumonia: Status: Acute (4) COVID: Status: Acute (5) Dementia: Status: Acute (6) Hypertension: Status: Acute (7) DNR (do not resuscitate): Status: Acute Plan Altered mental status: Most likely secondary to sepsis from pneumonia, aspiration, possibly from recent COVID-19 leading to worsening of advanced dementia Sepsis criteria met on admission from tachycardia, hypoxia, leukocytosis Procalcitonin negative, urine Legionella, bacterial antigen, MRSA swab negative. Lactate normal. Blood cultures so far negative. Stool studies awaited. Flu swab negative. Depakote level is low COVID-[address] 1. No acute intracranial abnormality. 2. Advanced diffuse cerebral atrophy and sequela of chronic small vessel ischemic disease. Old lacunar infarcts in the basal ganglia and left cerebellum CTA of the chest 1. Negative for pulmonary embolism. 2. Debris noted within the trachea and mainstem bronchi/proximal bronchial branches. There are few areas of ground-glass opacities and subsegmental atelectasis in the left lung which may relate to mucous plugging. -Continues to have some degree of fluctuating sensorium -For the last 36 hours she was quite obtunded,, but would awaken up to sternal rub, this morning she is much more alert and awake, Plan -Continue to monitor mentation. -Stop antibiotics as there is no evidence of infection -Hold all sedating medications including Seroquel, trazodone, gabapentin, continue monitor mentation for 24 hours, likely discharge in 24 to 48 hours, family would like her to go to [facility] who can take her on Wednesday, but requires a level 2 Elevated lactic acid, never resolved, pH 7.47, PO2 76.2 on 21%, normotensive, af ebrile, etiology unclear, continue to monitor Hypoxia: Resolved, off oxygen, most likely secondary to COVID-19 versus aspiration pneumonia. Infectious work-up as above. Oxygen supplementation keeping saturation over 90%. DuoNebs every 6 hour, budesonide twice daily. Chest vest. For now continue with vancomycin and Zosyn. Will de-escalate antibiotics as per culture results. COVID-19: COVID-19 PCR positive. Dexamethasone 6 mg IV daily for 10 days. Remdesivir to finish a 5-day course. DuoNebs every 6 hour budesonide twice daily. Monitor inflammatory markers including CRP and D-dimer every 48 hours. Hypernatremia: Most likely from poor oral intake. Resolved Hold fluid therapy Monitor BMP Strict input output charting, daily weights. Hypertension: Goal blood pressure less than 140/90 mmHg. Blood pressure is elevated. Increase dose of amlodipine to 10 mg daily, lisinopril to 30 mg daily. Continue with home dose of metoprolol. Dementia Continue other chronic medications. Patient does have a pressure injury. Continue with wound care. Will consult surgery if debridement needed. CODE STATUS: DNR/DNI. [place] thickened liquids Protonix for PUD prophylaxis. 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
[2021-10-04] MEDS: insulin lispro 100 unit/1 mL SUBCUT ×2 (13:34→21:08)
[2021-10-04 17:30] LABS: Glucose Point of Care 138 mg/dL (70-110)
[2021-10-04 20:27] LABS: Glucose Point of Care 243 mg/dL (70-110)
[2021-10-04] MEDS: OLANZapine 5 mg TABLET PO (21:08)
[2021-10-04] MEDS: acetaminophen 325 mg Tablet 650 MG PO (21:08)
[2021-10-05] VITALS (10 sets, daily range): BP systolic 92–174; BP diastolic 56–72; PULSE 53–74; RESP 15–20; TEMP 36.4–36.9; O2SAT 90–98
[2021-10-05] MEDS: heparin 5,000 unit/mL INJ 1 mL 5000 UNIT SUBCUT ×3 (05:23→20:58)
[2021-10-05 05:25] LABS: Basophils # 0.1 10^3/uL (0.0-0.1); Basophils % 0.8 %; Eosinophils # 0.3 10^3/uL (0.0-0.8); Eosinophils % 3.2 %; Hematocrit 35.1 % (37.0-47.0); Hemoglobin 11.2 g/dL (11.5-15.3); Lymphocytes % 22.4 %; Mean Corpuscular HGB Conc 31.9 g/dL (30.0-36.0); Mean Corpuscular Hemoglobin 29.8 pg (28.0-34.0); Mean Corpuscular Volume 93.4 fl (81-99); Mean Platelet Volume 11.9 fL (7.4-10.4); Monocytes # 0.8 10^3/uL (0.2-0.9); Monocytes % 9.3 %; Neutrophils # 5.37 10^3/uL (1.8-7.7); Neutrophils % 61.7 %; Nucleated Red Blood Cells % 0 %; Platelet Count 211 10^3/cmm (130-400); Red Blood Count 3.76 10^6/uL (4.1-5.3); Red Cell Distribution Width 12.9 % (12.1-15.1); White Blood Count 8.7 10^3/uL (4.0-10.0)
[2021-10-05 05:53] LABS: Alanine Aminotransferase 10 U/L (0-33); Albumin Level 2.9 g/dL (3.5-5.2); Alkaline Phosphatase 48 IU/L (35-105); Anion Gap 14.2 (5-19); Aspartate Amino Transferase 11 U/L (0-32); Blood Urea Nitrogen 11 mg/dL (8-23); Carbon Dioxide 28 mmol/L (22-29); Chloride 104 mmol/L (98-107); Globulin 2.1 g/dL (1.3-4.6); Glucose 164 mg/dL (65-115); Magnesium 1.7 mg/dL (1.7-2.3); Osmolality Calculated 299 mOsm/kg (285-295); Potassium 3.2 mmol/L (3.5-5.1); Sodium 143 mmol/L (136-145); Total Bilirubin 0.7 mg/dL (0.15-1.2)
[2021-10-05 06:42] LABS: Glucose Point of Care 165 mg/dL (70-110)
[2021-10-05] MEDS: amlodipine 5 mg Tablet 10 MG PO (08:26)
[2021-10-05] MEDS: lisinopril 20 mg Tablet 30 MG PO (08:26)
[2021-10-05] MEDS: insulin lispro 100 unit/1 mL SUBCUT ×3 (08:26→20:58)
[2021-10-05] MEDS: atorvastatin 40 mg Tablet 20 MG PO (08:26)
[2021-10-05] MEDS: cloNIDine 0.1 mg Tablet PO (08:26)
[2021-10-05] MEDS: metoprolol succinate ER (24 HR) 50 mg Tablet PO (08:26)
[2021-10-05] MEDS: zinc gluconate 50 mg Tablet PO (08:26)
[2021-10-05] MEDS: neomycin-poly-bacitracin oint 28 gm 1 APPLIC TOPICAL (08:27)
[2021-10-05] MEDS: budesonide 0.5 mg/2 mL Neb INHALATION ×2 (08:39→19:51)
[2021-10-05] MEDS: ipratropium-albuterol 3 mL Neb INHALATION ×3 (08:39→19:51)
--- NOTE | 2021-10-05 11:03 | PC.SOCIAL ---
IMM update IMM updated with daughter Nichelle. Verbalized an understanding. Initialled, dated, timed, and placed in chart.
[2021-10-05 11:22] LABS: Glucose Point of Care 238 mg/dL (70-110)
--- NOTE | 2021-10-05 14:31 | P.PN_ITS ---
Subjective Subjective: Interval history: Hospital course, labs appreciated. [place] patient lying comfortably in bed, sleeping. Wakes up to verbal cue. Not following commands. Pleasant. Nonverbal. Vitals/I&O/Wt Last Vital Signs Temp 98.3 F 10/05/21 12:00 Pulse 53 L 10/05/21 12:00 Resp 15 10/05/21 12:00 BP 92/56 10/05/21 12:00 Pulse Ox 90 10/05/21 12:00 10/04/21 10/05/21 10/05/21 22:59 06:59 14:59 Intake Total 360 / 680 360 / 360 Balance 360 / 680 360 / 360 Weight last 48 hrs Weight 80.694 kg Weight 81.374 kg Physical Exam Narrative: EXAM NARRATIVE: General: No acute distress, wakes up to verbal cue, not following commands HEENT: PERRLA, pupils bilaterally equal and reactive Chest: Bilateral bronchial breath sounds, crackles present in bilateral lower zone, more on the right side equal good air entry bilaterally CVS: S1-S2 regular, no murmurs, tachycardia, no gallops, no rubs Abdomen: Soft, nontender, no organomegaly, bowel sounds present Neuro: No focal deficits, no facial deformity, AO x3, power3/5 in all limbs Data : 10/05/21 04:35 10/05/21 04:35 A&P Assessment and plan (1) Altered mental status: Status: Acute (2) Hypoxia: Status: Acute (3) Pneumonia: Status: Acute (4) COVID: Status: Acute (5) Dementia: Status: Acute (6) Hypertension: Status: Acute (7) DNR (do not resuscitate): Status: Acute Plan Altered mental status: Most likely secondary to sepsis from pneumonia, aspiration, possibly from recent COVID-19 leading to worsening of advanced dementia. Cannot rule out polypharmacy of multiple psych medications. Sepsis criteria met on admission from tachycardia, hypoxia, leukocytosis Procalcitonin negative, urine Legionella, bacterial antigen, MRSA swab negative. Lactate normal. Blood cultures so far negative. Stool studies awaited. Flu swab negative. Depakote level is low COVID-19 PCR positive. Continue to hold off on all sedating medication including Seroquel, trazodone, gabapentin. We will continue with home dose of Depakote. family would like her to go to [facility] who can take her on Wednesday, but requires a level 2 Hypoxia: Resolved, off oxygen, most likely secondary to COVID-19 versus aspiration pneumonia. Infectious work-up as above. Oxygen supplementation keeping saturation over 90%. DuoNebs every 6 hour, budesonide twice daily. Diet modified as per swallow evaluation. Patient has finished a course of IV antibiotics with vancomycin and Zosyn. Pulmonary toilet as able COVID-19: COVID-19 PCR positive. Has finished a course of treatment with remdesivir and dexamethasone. First positive on 09/23. Remove isolation precautions. DuoNebs every 6 hour budesonide twice daily. Monitor inflammatory markers including CRP and D-dimer every 48 hours. Hypernatremia: Most likely from poor oral intake. Resolved Hold fluid therapy Monitor BMP Strict input output charting, daily weights. Hypertension: Goal blood pressure less than 140/90 mmHg. Blood pressure is better controlled. Continue with amlodipine 10 mg daily. Increase lisinopril to 40 mg daily. Change clonidine 0.1 mg twice daily to Coreg 6.25 mg twice daily. Stop home dose of metoprolol. Dementia Continue Depakote. Holding other medications as above. Patient does have a pressure injury. Continue with wound care. CODE STATUS: DNR/DNI. [place] thickened liquids Protonix for PUD prophylaxis. Heparin 5000 every 8 hourly for DVT prophylaxis Discharge planning: Plan to discharge to SNF for further rehabitation. Patient requiring level 2. Attestations Medical Necessity Statement*: Requires further hospitalization for further evaluation and management of altered mental status most likely secondary to a combination of sepsis from aspiration pneumonia, Covid pneumonia leading to worsening of advanced dementia and polypharmacy from multiple psych medications while safe discharge planning is sought. 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
[2021-10-05 16:47] LABS: Glucose Point of Care 111 mg/dL (70-110)
[2021-10-05] MEDS: carvedilol 6.25 mg Tablet PO (17:10)
[2021-10-05] MEDS: divalproex DR 500 mg Tablet PO (20:06)
[2021-10-05] MEDS: acetaminophen 325 mg Tablet 650 MG PO (20:06)
[2021-10-05] MEDS: OLANZapine 5 mg TABLET PO (20:06)
[2021-10-05 20:46] LABS: Glucose Point of Care 250 mg/dL (70-110)
[2021-10-06] VITALS (13 sets, daily range): BP systolic 108–177; BP diastolic 64–81; PULSE 63–94; RESP 15–20; TEMP 36.6–37.1; O2SAT 93–97
[2021-10-06] MEDS: ipratropium-albuterol 3 mL Neb INHALATION ×4 (02:02→20:37)
[2021-10-06 03:58] LABS: Basophils # 0.1 10^3/uL (0.0-0.1); Basophils % 0.6 %; Eosinophils # 0.3 10^3/uL (0.0-0.8); Eosinophils % 3.2 %; Hematocrit 35.8 % (37.0-47.0); Hemoglobin 11.5 g/dL (11.5-15.3); Lymphocytes # 2.5 10^3/uL (0.8-4.8); Lymphocytes % 25.7 %; Mean Corpuscular HGB Conc 32.1 g/dL (30.0-36.0); Mean Corpuscular Hemoglobin 29.9 pg (28.0-34.0); Mean Corpuscular Volume 93.2 fl (81-99); Mean Platelet Volume 12.3 fL (7.4-10.4); Monocytes # 0.8 10^3/uL (0.2-0.9); Monocytes % 8.8 %; Neutrophils # 5.69 10^3/uL (1.8-7.7); Neutrophils % 59.4 %; Nucleated Red Blood Cells % 0 %; Platelet Count 250 10^3/cmm (130-400); Red Blood Count 3.84 10^6/uL (4.1-5.3); Red Cell Distribution Width 12.9 % (12.1-15.1); White Blood Count 9.6 10^3/uL (4.0-10.0)
[2021-10-06 04:25] LABS: Alanine Aminotransferase 11 U/L (0-33); Alkaline Phosphatase 47 IU/L (35-105); Blood Urea Nitrogen 12 mg/dL (8-23); Calcium 8.1 mg/dL (8.5-10.5); Carbon Dioxide 28 mmol/L (22-29); Chloride 104 mmol/L (98-107); Globulin 2.1 g/dL (1.3-4.6); Glucose 114 mg/dL (65-115); Magnesium 1.6 mg/dL (1.7-2.3); Osmolality Calculated 295 mOsm/kg (285-295); Sodium 142 mmol/L (136-145); Total Bilirubin 0.6 mg/dL (0.15-1.2); Total Protein 5.1 g/dL (6.6-8.7)
[2021-10-06 04:37] LABS: Anion Gap 13.4 (5-19); Aspartate Amino Transferase 16 U/L (0-32); Potassium 3.4 mmol/L (3.5-5.1)
[2021-10-06] MEDS: heparin 5,000 unit/mL INJ 1 mL 5000 UNIT SUBCUT ×3 (06:01→20:57)
[2021-10-06 06:55] LABS: Glucose Point of Care 155 mg/dL (70-110)
[2021-10-06] MEDS: budesonide 0.5 mg/2 mL Neb INHALATION ×2 (07:54→20:37)
[2021-10-06] MEDS: carvedilol 6.25 mg Tablet PO ×2 (10:29→18:18)
[2021-10-06] MEDS: atorvastatin 40 mg Tablet 20 MG PO (10:29)
[2021-10-06] MEDS: amlodipine 5 mg Tablet 10 MG PO (10:29)
[2021-10-06] MEDS: insulin lispro 100 unit/1 mL SUBCUT ×4 (10:29→22:17)
[2021-10-06] MEDS: zinc gluconate 50 mg Tablet PO (10:29)
[2021-10-06] MEDS: lisinopril 20 mg Tablet 40 MG PO (10:29)
[2021-10-06] MEDS: neomycin-poly-bacitracin oint 28 gm 1 APPLIC TOPICAL (10:56)
[2021-10-06] MEDS: potassium chloride ER 20 mEq Tablet 40 MEQ PO (13:47)
[2021-10-06 13:51] LABS: Glucose Point of Care 182 mg/dL (70-110)
--- NOTE | 2021-10-06 14:44 | PM.PN ---
Subjective Subjective: Interval history: No acute overnight. On entering the room today patient is awake, crying. After holding my hand she settles down. On asking if she is in pain she moans yes. Still confused. Vitals/I&O/Wt Last Vital Signs Temp 98.0 F 10/06/21 11:56 Pulse 75 10/06/21 14:02 Resp 20 H 10/06/21 13:59 BP 177/81 10/06/21 11:56 Pulse Ox 93 10/06/21 13:59 10/05/21 10/06/21 10/06/21 22:59 06:59 14:59 Intake Total 440 / 800 300 / 300 Balance 440 / 800 300 / 300 Weight last 48 hrs Weight 81.556 kg Weight 80.694 kg Physical Exam Narrative: EXAM NARRATIVE: General: In mild acute distress most likely seems like the pain awake, not alert, confused HEENT: PERRLA, pupils bilaterally equal and reactive Chest: Bilateral bronchial breath sounds, crackles present in bilateral lower zone, more on the right side equal good air entry bilaterally CVS: S1-S2 regular, no murmurs, tachycardia, no gallops, no rubs Abdomen: Soft, nontender, no organomegaly, bowel sounds present Neuro: No focal deficits, no facial deformity, AO x3, power3/5 in all limbs Data : 10/06/21 02:52 10/06/21 02:52 A&P Assessment and plan (1) Altered mental status: Status: Acute (2) Hypoxia: Status: Acute (3) Pneumonia: Status: Acute (4) COVID: Status: Acute (5) Dementia: Status: Acute (6) Hypertension: Status: Acute (7) DNR (do not resuscitate): Status: Acute Plan Altered mental status: Seems to be back to baseline currently. Most likely secondary to sepsis from pneumonia, aspiration, possibly from recent COVID-19 leading to worsening of advanced dementia. Cannot rule out polypharmacy of multiple psych medications. Sepsis criteria met on admission from tachycardia, hypoxia, leukocytosis Procalcitonin negative, urine Legionella, bacterial antigen, MRSA swab negative. Lactate normal. Blood cultures so far negative. Stool studies awaited. Flu swab negative. Depakote level is low. COVID-19 PCR positive. Continue to hold off on all sedating medication including Seroquel, trazodone. Restart gabapentin but at lower dose of 100 mg 3 times a day. Continue Depakote at 500 mg nightly. Hypoxia: Resolved, off oxygen, most likely secondary to COVID-19 versus aspiration pneumonia. Infectious work-up as above. Oxygen supplementation keeping saturation over 90%. DuoNebs every 6 hour, budesonide twice daily. Diet modified as per swallow evaluation. Patient has finished a course of IV antibiotics with vancomycin and Zosyn. Pulmonary toilet as able COVID-19: COVID-19 PCR positive. Has finished a course of treatment with remdesivir and dexamethasone. First positive on 09/23. Off isolation. DuoNebs every 6 hour budesonide twice daily. Monitor inflammatory markers including CRP and D-dimer every 48 hours. Hypernatremia: Most likely from poor oral intake. Resolved Hold fluid therapy Monitor BMP Strict input output charting, daily weights. Hypertension: Goal blood pressure less than 140/90 mmHg. Blood pressure is better controlled. Continue with amlodipine 10 mg daily. Increase lisinopril to 40 mg daily. Change clonidine 0.1 mg twice daily to Coreg 6.25 mg twice daily. Stop home dose of metoprolol. Dementia Continue Depakote. Holding other medications as above. Patient does have a pressure injury. Continue with wound care. CODE STATUS: DNR/DNI. [place] thickened liquids Protonix for PUD prophylaxis. Heparin 5000 every 8 hourly for DVT prophylaxis Discharge planning: Plan to discharge to SNF for further rehabitation. Awaiting level 2 approval. Attestations Medical Necessity Statement*: Requires further hospitalization for resolving altered mental status in a patient with advanced age and dementia while safe discharge planning is sought to SNF as patient is at high risk of recurrent admissions because of aspiration pneumonia and worsening mental status Time Spent in Patient Care: Greater than 35 minutes Coding Level of Care Code Acute Rehab Care Assistant for [facility] Fwd Diagnoses Altered mental status R41.82 Hypoxia R09.02 Pneumonia J18.9 COVID U07.1 Dementia F03.90 Hypertension I10 DNR (do not resuscitate) Z66
[2021-10-06 17:16] LABS: Glucose Point of Care 144 mg/dL (70-110)
[2021-10-06] MEDS: gabapentin 100 mg Capsule PO ×2 (18:18→20:57)
[2021-10-06] MEDS: divalproex DR 500 mg Tablet PO (20:56)
[2021-10-06] MEDS: OLANZapine 5 mg TABLET PO (20:57)
[2021-10-06 21:41] LABS: Glucose Point of Care 252 mg/dL (70-110)
[2021-10-07] VITALS (13 sets, daily range): BP systolic 112–168; BP diastolic 60–83; PULSE 62–84; RESP 16–20; TEMP 36.4–37; O2SAT 89–96
[2021-10-07] MEDS: ipratropium-albuterol 3 mL Neb INHALATION ×4 (02:27→22:24)
[2021-10-07] MEDS: heparin 5,000 unit/mL INJ 1 mL 5000 UNIT SUBCUT ×3 (05:54→20:20)
[2021-10-07 06:45] LABS: Glucose Point of Care 191 mg/dL (70-110)
[2021-10-07] MEDS: budesonide 0.5 mg/2 mL Neb INHALATION ×2 (08:02→22:24)
[2021-10-07] MEDS: insulin lispro 100 unit/1 mL SUBCUT ×4 (09:22→20:55)
[2021-10-07] MEDS: neomycin-poly-bacitracin oint 28 gm 1 APPLIC TOPICAL (09:23)
[2021-10-07] MEDS: atorvastatin 40 mg Tablet 20 MG PO (09:23)
[2021-10-07] MEDS: gabapentin 100 mg Capsule PO (09:23)
[2021-10-07] MEDS: zinc gluconate 50 mg Tablet PO (09:23)
[2021-10-07] MEDS: carvedilol 6.25 mg Tablet PO ×2 (09:23→18:17)
[2021-10-07] MEDS: amlodipine 5 mg Tablet 10 MG PO (09:23)
[2021-10-07] MEDS: lisinopril 20 mg Tablet 40 MG PO (09:23)
--- NOTE | 2021-10-07 12:18 | PC.SOCIAL ---
IMM Update pg 2 of IMM updated and reviewed w/ patients daughter Nikki and explained left copy in patients room.
[2021-10-07 12:44] LABS: Glucose Point of Care 228 mg/dL (70-110)
--- NOTE | 2021-10-07 15:25 | P.PN_ITS ---
Subjective Subjective: No acute events overnight. Has remained hemodynamically stable and afebrile. On examination seen sitting on bedside. Confused, awake and alert, occasionally moaning during examination. Vitals/I&O/Wt Last Vital Signs Temp 97.5 F L 10/07/21 11:38 Pulse 84 10/07/21 15:08 Resp 17 10/07/21 15:02 BP 122/60 10/07/21 11:38 Pulse Ox 91 10/07/21 15:02 10/07/21 10/07/21 10/07/21 06:59 14:59 22:59 Intake Total 240 / 240 Balance 240 / 240 Weight last 48 hrs Weight 78.063 kg Weight 81.556 kg Physical Exam Narrative: General: In mild acute distress most likely seems like the pain awake, not alert, confused HEENT: PERRLA, pupils bilaterally equal and reactive Chest: Bilateral bronchial breath sounds, crackles present in bilateral lower zone, more on the right side equal good air entry bilaterally CVS: S1-S2 regular, no murmurs, tachycardia, no gallops, no rubs Abdomen: Soft, nontender, no organomegaly, bowel sounds present Neuro: No focal deficits, no facial deformity, AO x3, power3/5 in all limbs Data : 10/06/21 02:52 10/06/21 02:52 A&P Assessment and plan (1) Altered mental status: Status: Acute (2) Hypoxia: Status: Acute (3) Pneumonia: Status: Acute (4) COVID: Status: Acute (5) Dementia: Status: Acute (6) Hypertension: Status: Acute (7) DNR (do not resuscitate): Status: Acute Plan Altered mental status: Seems to be back to baseline currently. Most likely secondary to sepsis from pneumonia, aspiration, possibly from recent COVID-19 leading to worsening of advanced dementia. Cannot rule out polypharmacy of multiple psych medications. Sepsis criteria met on admission from tachycardia, hypoxia, leukocytosis Procalcitonin negative, urine Legionella, bacterial antigen, MRSA swab negative. Lactate normal. Blood cultures so far negative. Stool studies awaited. Flu swab negative. Depakote level is low. COVID-19 PCR positive. Continue to hold off on all sedating medication including Seroquel, trazodone. Restart gabapentin but at lower dose of 100 mg 3 times a day. Continue Depakote at 500 mg nightly. Hypoxia: Resolved, off oxygen, most likely secondary to COVID-19 versus aspiration pneumonia. Infectious work-up as above. Oxygen supplementation keeping saturation over 90%. DuoNebs every 6 hour, budesonide twice daily. Diet modified as per swallow evaluation. Patient has finished a course of IV antibiotics with vancomycin and Zosyn. Pulmonary toilet as able COVID-19: COVID-19 PCR positive. Has finished a course of treatment with remdesivir and dexamethasone. First positive on 09/23. Off isolation. DuoNebs every 6 hour budesonide twice daily. Monitor inflammatory markers including CRP and D-dimer every 48 hours. Hypernatremia: Most likely from poor oral intake. Resolved Hold fluid therapy Monitor BMP Strict input output charting, daily weights. Hypertension: Goal blood pressure less than 140/90 mmHg. Blood pressure is better controlled. Continue with amlodipine 10 mg daily. Increase lisinopril to 40 mg daily. Change clonidine 0.1 mg twice daily to Coreg 6.25 mg twice daily. Stop home dose of metoprolol. Dementia Continue Depakote. Holding other medications as above. Patient does have a pressure injury. Continue with wound care. CODE STATUS: DNR/DNI. [place] thickened liquids Protonix for PUD prophylaxis. Heparin 5000 every 8 hourly for DVT prophylaxis Plan for day: Continue antihypertensives with amlodipine at 10 mg, Coreg 6.25 twice daily, lisinopril 40 mg daily. Increase gabapentin to home dose of 300 mg 3 times a day. Discharge planning: Plan to discharge to SNF for further rehabitation. Awaiting level 2 approval. 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
[2021-10-07] MEDS: gabapentin 300 mg Capsule PO (20:20)
[2021-10-07] MEDS: divalproex DR 500 mg Tablet PO (20:20)
[2021-10-07] MEDS: OLANZapine 5 mg TABLET PO (20:20)
[2021-10-07 20:29] LABS: Glucose Point of Care 225 mg/dL (70-110)
[2021-10-08] VITALS (9 sets, daily range): BP systolic 110–154; BP diastolic 58–72; PULSE 62–80; RESP 18; TEMP 36.8; O2SAT 88–94
[2021-10-08] MEDS: ipratropium-albuterol 3 mL Neb INHALATION ×3 (02:55→15:12)
[2021-10-08] MEDS: heparin 5,000 unit/mL INJ 1 mL 5000 UNIT SUBCUT ×2 (06:18→12:42)
[2021-10-08 07:30] LABS: Glucose Point of Care 157 mg/dL (70-110)
[2021-10-08] MEDS: budesonide 0.5 mg/2 mL Neb INHALATION (09:01)
--- NOTE | 2021-10-08 09:34 | PC.OT ---
Discharge patient from occupational therapy services due to patient not being appropriate. Multiple attempts have been attempted to increase alertness and participation with no improvement.
[2021-10-08] MEDS: atorvastatin 40 mg Tablet 20 MG PO (09:48)
[2021-10-08] MEDS: zinc gluconate 50 mg Tablet PO (09:48)
[2021-10-08] MEDS: amlodipine 5 mg Tablet 10 MG PO (09:48)
[2021-10-08] MEDS: carvedilol 6.25 mg Tablet PO ×2 (09:49→17:28)
[2021-10-08] MEDS: lisinopril 20 mg Tablet 40 MG PO (09:49)
[2021-10-08] MEDS: gabapentin 300 mg Capsule PO ×2 (09:49→17:28)
[2021-10-08] MEDS: insulin lispro 100 unit/1 mL SUBCUT (12:38)
--- NOTE | 2021-10-08 14:35 | PM.DCS ---
Discharge Providers Date of Admission: 09/28/21 14:46 Date of Discharge: October 08, 2021 Attending Provider at Admission: Max Moreno MD Attending Provider at Discharge: Max Moreon MD Primary Care Provider: Paulina Crawford MD Diagnoses at Discharge Discharge Diagnosis (1) Altered mental status: Status: Acute (2) Hypoxia: Status: Acute (3) Pneumonia: Status: Acute (4) COVID: Status: Acute (5) Dementia: Status: Acute (6) Hypertension: Status: Acute (7) DNR (do not resuscitate): Status: Acute Reason for Visit Reason for Visit: AMS; COVID + Hospital Course Hospital Course History as per HPI: Avis Walls is a 71 year old female past medical history of advanced dementia, correction resident, hypertension, recurrent UTIs most recently couple of weeks ago for which she was on oral antibiotics, bedsore, tested positive for COVID-19 on Wednesday when she was tested 09/23 was brought into the ER from correction today because of being more altered than usual and possible hypoxia on room air.? On arrival to the ER patient was obtunded with a GCS of 3 though was not intubated because of DNR status.? Apparently she had saturation of 80% on room air on arrival. On my examination patient has received 500 cc of normal saline, on 3 L saturating 97%, wakes up to verbal stimulus though not able to follow commands or answer questions.? Patient is dehydrated on examination.? T-max 100.7 since arrival to the ER. Blood work in the ER shows white count of 25.7, hemoglobin of 14.4, ABG showing a pH of 7.5, PCO2 34, PO2 of 52, chemistry showing a sodium of 146, potassium 3.7, creatinine of 0.6, bilirubin of 1.5, baseline troponin of 27, BNP of 211, UA showing negative nitrite, 2+ leuk esterase, 2+ bacteria, COVID-19 PCR done in the ER negative.? CT results as below. Hospital course: Patient went to the hospital for further evaluation and management of altered mental status. It is believed her symptoms are most likely a combination of advanced dementia getting worse and secondary to COVID-19 pneumonia along with polypharmacy. Patient remained stable from COVID-19 pneumonia status. She did not require any oxygen during hospital stay. Because of ongoing confusion and concern for Covid encephalopathy patient received a treatment with IV remdesivir and dexamethasone. During hospitalization there was a concern for aspiration pneumonia for which swallow evaluation was done and diet has been changed accordingly. On admission patient did have signs of UTI for which she received a course of IV antibiotics. Multiple psychiatric medications were withheld after which patient became a little more somnolent and most likely back to her baseline of being awake, alert and confused with episodes of moaning. Some of her medications were reintroduced. Currently she is on Depakote, olanzapine and gabapentin. Patient has been fairly doing well and at her baseline for last 4 to 5 days on these medications. During hospitalization she was found to have uncontrolled hypertension for which her antihypertensives were adjusted. Patient hospital stay was prolonged because of safe discharge planning. Patient is being discharged to SNF for further long-term care. Patient required level 2 which has been pursued. She is been discharged in hemodynamically stable condition. Physical Exam Narrative: General: In mild acute distress most likely seems like the pain awake, not alert, confused HEENT: PERRLA, pupils bilaterally equal and reactive Chest: Bilateral bronchial breath sounds, crackles present in bilateral lower zone, more on the right side equal good air entry bilaterally CVS: S1-S2 regular, no murmurs, tachycardia, no gallops, no rubs Abdomen: Soft, nontender, no organomegaly, bowel sounds present Neuro: No focal deficits, no facial deformity, AO x3, power3/5 in all limbs Discharge Data Studies Completed and Pending Completed Studies During Hospitalization Category Date Time Status CT abdomen pelvis w con* [id number] Urgent Cat Scan 09/28/21 14:[address] head wo con* [id number] Urgent Cat Scan 09/28/21 12:39 Completed CTA chest [CT angio chest PE protcl [id number]] Urgent Cat Scan 09/28/21 12:39 Completed XR chest 1V portable [id number] Q48H Exams 09/29/21 06:00 Completed XR chest 1V portable [id number] Q48H Exams 10/03/21 06:00 Completed XR chest 1V portable [id number] Routine Exams 10/01/21 07:00 Completed XR chest 1V portable [id number] Routine Exams 10/02/21 11:49 Completed XR chest 1V portable [id number] Stat Exams 09/28/21 12:39 Completed CV. echo complete* [id number] Routine Ultrasound 09/29/21 16:37 Completed Pending at discharge Category Date Time Status Sputum Culture and Gram Stain Stat Lab 09/29/21 10:35 Uncollected Radiology Impressions Chest CTA 09/28/21 12:39 IMPRESSION: 1. Negative for pulmonary embolism. 2. Debris noted within the trachea and mainstem bronchi/proximal bronchial branches. There are few areas of ground-glass opacities and subsegmental atelectasis in the left lung which may relate to mucous plugging. Head CT 09/28/21 12:39 IMPRESSION: 1. No acute intracranial abnormality. 2. Advanced diffuse cerebral atrophy and sequela of chronic small vessel ischemic disease. Old lacunar infarcts in the basal ganglia and left cerebellum. Abdomen/Pelvis CT 09/28/21 14:45 IMPRESSION: 1. Negative for focal acute inflammatory process in the abdomen or pelvis. 2. Bibasilar left greater than right airspace infiltrates. 3. Cholecystectomy. 4. Diverticulosis without diverticulitis. 5. Young catheter in the urinary bladder with air presumed iatrogenic. Chest X-Ray 10/03/21 06:00 IMPRESSION: Resolved subsegmental atelectasis at the LEFT lung base. Echocardiogram: CONCLUSIONS ?1. Normal left ventricular cavity size and systolic function.? ?Moderate concentric left ventricular hypertrophy.? Left?ventricular ejection fraction is estimated at 75%.? No regional?wall motion abnormality.? Grade I diastolic dysfunction?(abnormal relaxation filling pattern), normal to mildly elevated?filling pressures. ?2. Normal right ventricular size and systolic function. ?3. Pulmonary artery pressure estimated at 27 mmHg. ?4. Moderate to severe mitral annular calcification. Mild mitral?valve stenosis. Mitral valve mean gradient is 5 mmHg. No?significant mitral valve regurgitation.? ?5. No prior similar studies to compare. ?Raina Rutledge MD ?(Electronically Signed) ?Final Date:? ? ? 29 September 2021 ? 17:01 Laboratory Results WBC 9.6 10^3/uL (4.0-10.0) 10/06/21 02:52 RBC 3.84 10^6/uL (4.1-5.3) L 10/06/21 02:52 Hgb 11.5 g/dL (11.5-15.3) 10/06/21 02:52 Hct 35.8 % (37.0-47.0) L 10/06/21 02:52 MCV 93.2 fl (81-99) 10/06/21 02:52 MCH 29.9 pg (28.0-34.0) 10/06/21 02:52 MCHC 32.1 g/dL (30.0-36.0) 10/06/21 02:52 RDW 12.9 % (12.1-15.1) 10/06/21 02:52 Plt Count 250 10^3/cmm (130-400) 10/06/21 02:52 MPV 12.3 fL (7.4-10.4) H 10/06/21 02:52 Neut % (Auto) 59.4 % 10/06/21 02:52 Lymph % (Auto) 25.7 % 10/06/21 02:52 [place] % (Auto) 8.8 % 10/06/21 02:52 Eos % (Auto) 3.2 % 10/06/21 02:52 Baso % (Auto) 0.6 % 10/06/21 02:52 Neut # (Auto) 5.69 10^3/uL (1.8-7.7) 10/06/21 02:52 Lymph # (Auto) 2.5 10^3/uL (0.8-4.8) 10/06/21 02:52 [place] # (Auto) 0.8 10^3/uL (0.2-0.9) 10/06/21 02:52 Eos # (Auto) 0.3 10^3/uL (0.0-0.8) 10/06/21 02:52 Baso # (Auto) 0.1 10^3/uL (0.0-0.1) 10/06/21 02:52 Nucleated RBC % (auto) 0 % 10/06/21 02:52 Nucleated RBCs # 0.0 /100WBC 10/06/21 02:52 D-Dimer 1.16 ug/mIFEU (0-0.59) H 09/28/21 12:00 Specimen Type Arterial 10/02/21 14:00 Sample Site Radial, right 10/02/21 14:00 ABG pH 7.47 (7.35-7.45) H 10/02/21 14:00 ABG pCO2 32.8 mmHg (35-45) L 10/02/21 14:00 ABG pO2 76.2 mmHg (80.0-100.0) L 10/02/21 14:00 ABG HCO3 23.9 mmol/L (22-26) 10/02/21 14:00 ABG O2 Saturation 90.3 09/28/21 13:02 ABG Base Excess 0.7 mmol/L (-2.0-2.0) 10/02/21 14:00 Mark Test Pos 10/02/21 14:00 A-a O2 Gradient 24.6 mmHg (5-10) H 09/28/21 13:02 Hematocrit 35.5 % (37-47) L 10/02/21 14:00 Hgb O2 Saturation 89.0 % (95-100) L 09/28/21 13:02 Carboxyhemoglobin 1.0 %THgb (0.4-20.1) 09/28/21 13:02 Methemoglobin 0.5 % (0.4-1.5) 09/28/21 13:02 Total Hemoglobin 14.8 g/dL (12-16) 09/28/21 13:02 Sodium 149.0 mmol/L (131-143) H 09/28/21 13:02 Potassium 3.8 mmol/L (3.5-5.0) 09/28/21 13:02 Glucose 197.0 mg/dL (70-115) H 09/28/21 13:02 Ionized Calcium 1.2 mmol/L (1.1-1.4) 09/28/21 13:02 O2 Delivery Device Room air 10/02/21 14:00 O2 Liters/Min 5.0 % 09/28/21 13:02 FiO2 21.0 % 10/02/21 14:00 Satellite Manager ID glc 10/02/21 14:00 Sodium 142 mmol/L (136-145) 10/06/21 02:52 Potassium 3.4 mmol/L (3.5-5.1) L 10/06/21 02:52 Chloride 104 mmol/L (98-107) 10/06/21 02:52 Carbon Dioxide 28 mmol/L (22-29) 10/06/21 02:52 Anion Gap 13.4 (5-19) 10/06/21 02:52 BUN 12 mg/dL (8-23) 10/06/21 02:52 Creatinine 0.4 mg/dL (0.5-0.9) L 10/06/21 02:52 GFR Calculation Not Reportable 10/06/21 02:52 Glucose 114 mg/dL (65-115) 10/06/21 02:52 POC Glucose 157 mg/dL (70-110) H 10/08/21 06:30 Estimat Average Glucose 157 09/29/21 04:03 Hemoglobin A1c 7.1 % (4.0-6.0) H 09/29/21 04:03 Calculated Osmolality 295 mOsm/kg (285-295) 10/06/21 02:52 Lactic Acid 1.5 mmol/L (0.5-2.2) 09/28/21 19:30 Lactate 2.4 mmol/L (0.5-2.2) H 10/02/21 15:58 Calcium 8.1 mg/dL (8.5-10.5) L 10/06/21 02:52 Phosphorus 2.9 mg/dL (2.5-4.5) 10/03/21 05:41 Magnesium 1.6 mg/dL (1.7-2.3) L 10/06/21 02:52 Iron 15 ug/dL (37-145) L 09/28/21 12:00 TIBC 195 mcg/dl 09/28/21 12:00 % Saturation 7.6 % (20-50) L 09/28/21 12:00 Unsat Iron Binding 180 ug/dL (112-347) 09/28/21 12:00 Ferritin 213 ng/mL (15-150) H 10/02/21 05:10 Total Bilirubin 0.6 mg/dL (0.15-1.2) 10/06/21 02:52 AST 16 U/L (0-32) 10/06/21 02:52 ALT 11 U/L (0-33) 10/06/21 02:52 Alkaline Phosphatase 47 IU/L (35-105) 10/06/21 02:52 Creatine Kinase 19 U/L (26-192) L 10/02/21 05:10 Troponin T Baseline 27 ng/L (0-10) H 09/28/21 12:00 Troponin T 120 Minute 31.69 ng/L (0-10) H 09/28/21 14:38 Delta Troponin T 4.69 ABS# (0-10) 09/28/21 14:38 Troponin T Hi Sens 6Hr 31.52 ng/L (0-10) H 09/28/21 19:30 Troponin T Hi Sens 6Hr Delta 4.52 ng/L (0-12) 09/28/21 19:30 C-Reactive Protein 12.6 mg/L (0.0-4.9) H 10/03/21 05:41 NT-Pro-B Natriuret Pep 644 pg/mL (0-125) H 10/03/21 05:41 Total Protein 5.1 g/dL (6.6-8.7) L 10/06/21 02:52 Albumin 3.0 g/dL (3.5-5.2) L 10/06/21 02:52 Globulin 2.1 g/dL (1.3-4.6) 10/06/21 02:52 Triglycerides 96 mg/dL (0-150) 09/29/21 04:03 Triglycerides Cancelled 09/29/21 04:03 Cholesterol 162 mg/dL (0-200) 09/29/21 04:03 Cholesterol Cancelled 09/29/21 04:03 LDL Cholesterol, Calc 98 mg/dL (50-129) 09/29/21 04:03 LDL Cholesterol, Calc Cancelled 09/29/21 04:03 Total VLDL Cholesterol 19 mg/dL (0-30) 09/29/21 04:03 Total VLDL Cholesterol Cancelled 09/29/21 04:03 HDL Cholesterol 45 mg/dL (60-100) L 09/29/21 04:03 HDL Cholesterol Cancelled 09/29/21 04:03 Cholesterol/HDL Ratio 3.60 mg/dL (0.0-4.40) 09/29/21 04:03 Cholesterol/HDL Ratio Cancelled 09/29/21 04:03 Lipase 23 U/L (13-60) 09/28/21 12:00 Procalcitonin 0.04 ng/mL (0-0.5) 10/04/21 03:50 TSH 1.05 uIU/mL (0.27-4.20) 09/28/21 12:00 Urine Color [place] (Yellow) 09/28/21 13:12 Urine Appearance Sl hazy (CLEAR) 09/28/21 13:12 Urine pH 5 (5-7) 09/28/21 13:12 Ur Specific [place] 1.025 (1.005-1.030) 09/28/21 13:12 Urine Protein 1+ (Negative) H 09/28/21 13:12 Urine Glucose (UA) Norm (Normal) 09/28/21 13:12 Urine Ketones 1+ (Negative) H 09/28/21 13:12 Urine Blood Neg (Negative) 09/28/21 13:12 Urine Nitrate Negative (Negative) 09/28/21 13:12 Urine Bilirubin 2+ (Negative) H 09/28/21 13:12 Urine Urobilinogen 8 mg/dL (Negative) H 09/28/21 13:12 Ur Leukocyte Esterase 2+ (Negative) H 09/28/21 13:12 Urine RBC None /hpf (0-2) 09/28/21 13:12 Urine WBC 15-25 /hpf (0-5) H 09/28/21 13:12 Ur Squamous Epith Cells 5-10 /hpf (0-5) H 09/28/21 13:12 Amorphous Sediment Not Reportable 09/28/21 13:12 Urine Bacteria 2+ /hpf (NONE) H 09/28/21 13:12 Urine Mucus 2+ /hpf 09/28/21 13:12 Vancomycin Trough 18.8 ug/mL (10-15) H 10/02/21 15:58 Valproic Acid 10.8 ug/mL (50-100) L 09/29/21 04:03 Serum Ketones Negative (Negative) 10/02/21 15:58 Coronavirus 229E (PCR) Not detected (NOT DETECT) 09/28/21 18:44 Influenza Type A Ag Negative (Negative) 09/28/21 17:13 Influenza Type B Ag Negative (Negative) 09/28/21 17:13 SARS-CoV-2 (PCR) Detected (NOT DETECT) A 09/28/21 18:44 SARS-CoV-2 Ag (Rapid) Negative (Negative) 09/28/21 17:10 Vitals Last Vital Signs Temp 98.3 F 10/08/21 12:00 Pulse 67 10/08/21 12:00 Resp 18 10/08/21 12:00 BP 128/72 10/08/21 12:00 Pulse Ox 94 10/08/21 12:00 Discharge Plan Discharge Patient Disposition: Xfer SNF Condition: Stable Prescriptions: New carvedilol 6.25 mg Tablet 6.25 mg PO BID Qty: 60 0RF olanzapine 5 mg Tablet 5 mg PO BEDTIME Qty: 30 0RF amlodipine 5 mg Tablet 10 mg PO DAILY Qty: 60 0RF Continued One Daily Womens 50 Plus 0.4 mg tablet 1 tab PO DAILY 0RF zinc oxide 20 % ointment 1 applic topical TID 0RF acetaminophen 325 mg capsule 650 mg PO TID PRN (Reason: Pain) 0RF atorvastatin 20 mg tablet 20 mg PO DAILY 0RF divalproex 125 mg tablet,delayed release (DR/EC) See Rx Instructions .ROUTE .COMPLEX 0RF Rx Instructions: 125 mg orally IN THE MORNING / 375 MG ORALLY AT NOON / 500 MG ORALLY IN THE EVENING gabapentin 300 mg capsule 300 mg PO TID 0RF melatonin 3 mg capsule 3 mg PO BEDTIME 0RF Micro-Guard 2 % powder 1 applic topical BID 0RF pantoprazole 40 mg tablet,delayed release (DR/EC) 40 mg PO DAILY 0RF Triple Antibiotic 3.5mg-400 unit- 5,000 unit/gram Ointment 1 applic TOPICAL DAILY 0RF Rx Instructions: CLEANSE WOUND TO RIGHT BUTTOCK WITH WOUND WASH, APPLY TRIPLE ANTIBIOTIC OINTMENT AND COVER WITH BANDAID Changed lisinopril 20 mg tablet 40 mg PO DAILY Qty: 0 0RF Discontinued trazodone 150 mg tablet 150 mg PO BEDTIME 0RF amlodipine 5 mg tablet 5 mg PO DAILY 0RF metoprolol succinate 50 mg tablet extended release 24 hr 50 mg PO DAILY 0RF quetiapine [Seroquel] 50 mg Tablet 75 mg PO BEDTIME 0RF Discharge Orders: Discharge Order (Routine); Ordered 10/08/21 Ordered By: Max Moreno Referrals: Paulina Crawford MD [Primary Care Provider] - Discharge Diet: As Directed Discharge Activity: Resume usual activity and Increase activity as tolerated Patient Instructions: Amlodipine (By mouth), Olanzapine (By mouth), Carvedilol (By mouth), Pneumonitis (DC), Opioid Safety Activity Restrictions/Additional Instructions: Dysphagia 1 pur?ed diet Please take note of psychiatric medications and antihypertensives. Discharge Attestations Time Spent in Discharge Care*: greater than 30 min Quality Metrics Clinical Quality Measures [ No reported AMI, CVA or VTE this stay] Coding Level of Care Code Acute g FW DC note Diagnoses Altered mental status R41.82 Hypoxia R09.02 Pneumonia J18.9 COVID U07.1 Dementia F03.90 Hypertension I10 DNR (do not resuscitate) Z66
[2021-10-10 21:28] LABS: Glucose Point of Care 243 mg/dL (70-110)
[2021-10-10 21:29] LABS: Glucose Point of Care 180 mg/dL (70-110)
== END 2021-10-08 18:32 | disposition skilled nursing facility (03) | DRG 177 ==
LOC: ER 13:42 → MEDSURG 18:34
PROVIDERS: Family Medicine; Admitting Provider Student in an Organized Health Care Education/Training Program; Emergency Provider Emergency Medicine; PCP Family Medicine; Visit Provider Student in an Organized Health Care Education/Training Program
DX: U07.1 COVID-19 (principal); J12.82 Pneumonia due to coronavirus disease 2019; N39.0 Urinary tract infection, site not specified; E87.0 Hyperosmolality and hypernatremia; F03.90 Unspecified dementia, unspecified severity, without behavioral disturbance, psychotic disturbance, mood disturbance, and anxiety; Z66 Do not resuscitate; I10 Essential (primary) hypertension; L89.159 Pressure ulcer of sacral region, unspecified stage
CPT/HCPCS: 36415; 36416; 36600; 70450; 71045; 71275; 74177; 80048; 80051; 80053; 80061; 80164; 80202; 81001; 82009; 82274; 82330; 82550; 82728; 82803; 82805; 82962; 83036; 83540; 83550; 83605; 83630; 83690; 83735; 83880; 84100; 84145; 84443; 84484; 85025; 85378; 86140; 86403; 87040; 87086; 87426; 87449; 87493; 87506; 87635; 87641; 87804; 92526; 92610; 93005; 93306; 94640; 94664; 96365; 96366; 96367; 96372; 96375; 97165; 97535; 99285; C9113; J0692; J1100; J1644; J1815; J1940; J2543; J3370; J3475; J3480; J7030; J7050; J7626; J7799; Q9967

== ENCOUNTER 2021-12-16 11:39 | Emergency (ER) | payer MEDICARE, SELFPAY ==
--- NOTE | 2021-12-16 11:49 | ECG_ITS ---
[facility] Test Date: 2021-12-16 Pat Name: Avis Walls Department: Room: Gender: Female Bpm Analyst: : 1950 Requested By: Fadi Hill Order Number: [id number] Bailee MD: Ashia Kennedy M.D. Measurements Intervals [place] Rate: 77 P: 66 MS: 140 QRS: 24 QRSD: 94 T: 74 QT: 397 QTc: 450 Interpretive Statements SINUS RHYTHM MODERATE ST DEPRESSION [0.05+ mV ST DEPRESSION] INTERPRETATION BASED ON A DEFAULT AGE OF 40 YEARS Compared to ECG 09/28/2021 18:35:16 ST (T wave) deviation now present Myocardial infarct finding no longer present Electronically Signed On 12-16-2021 18:56:22 CDT by Ashia Kennedy M.D. [email or web address]
--- NOTE | 2021-12-16 11:49 | XR_ITS ---
WS: [id number] Exam: XR chest 1V portable [id number] Date/Time of Exam: 12/16/2021 11:52 AM Reason For Exam: dyspnea/cough Comparison 10/03/2021. The lungs are clear and fully expanded. Normal cardiomediastinal silhouette for technique. No pleural effusions. Bony structures are unremarkable. Fusion hardware seen in the lower cervical spine. Monit oring leads superimpose the chest. XR/XR chest 1V portable [id number] IMPRESSION: 1. No acute cardiopulmonary finding.
[2021-12-16 12:05] VITALS: BMI 28.1
[2021-12-16 12:23] VITALS: BP 222/87; PULSE 80; RESP 18; TEMP 36.7; O2SAT 99
--- NOTE | 2021-12-16 12:50 | PC.NURSE ---
pt removed iv placed by ems while at [facility].
--- NOTE | 2021-12-16 13:26 | W.ED.CHESTPA ---
HPI - Chest Pain General: Chief Complaint: Chest Pain Stated Complaint: ABD PAIN, CHEST PAIN Time Seen by Provider: 12/16/21 11:46 Source: EMS Mode of arrival: EMS Limitations: altered mental status History of Present Illness: 71-year-old female with significant dementia presents emergency room with a complaint of chest pain. Elevated blood pressure at the custodial as well. She is custodial resident in the dementia unit is difficult to get any specific history she babbles incoherently a few words are understandable but there is no coherent thoughts or responses. Later in the visit the daughter is at the bedside confirms that this is her baseline for the most part is not able to contribute more other than what EMS had relayed from the nursing staff. Chief complaint appears to be chest pain. MD complaint: chest pain Onset (ago): minute(s) Timing of current episode: episodic Onset: during rest Relieving factors: nothing Exacerbating factors: nothing Review of Systems General: Reports: ROS unobtainable due to mental status PFSH ED PFSH: Medical History Altered mental status COVID Dementia DNR (do not resuscitate) Hypertension Psychiatric care Surgical History History of cholecystectomy Family History Other Psychiatric illness Denies family history of Stroke Social History Smoking and tobacco status: never smoked Alcohol intake: never Adopted: No Caregiver/support person: Yes Lives independently: No Household members: other Housing: [facility] Physical Exam Const: ORIENTATION/CONSCIOUSNESS: Yes awake HENMT: COMMON NORMALS: normocephalic, atraumatic and hearing grossly normal bilaterally HEAD & SCALP: normocephalic and atraumatic Neck/C-Spine: COMMON NORMALS: no JVD Resp: COMMON NORMALS: normal respiratory effort, No retractions, No use of accessory muscles and clear to auscultation bilaterally AUSCULTATION: clear to auscultation bilaterally Cardio: COMMON NORMALS: no JVD, regular rate, regular rhythm and No murmurs present (Cardio) RATE: regular rate RHYTHM: regular rhythm GI: COMMON NORMALS: Soft to palpation and No hepatosplenomegaly present AUSCULTATION: Yes normoactive bowel sounds PALPATION: Yes Soft to palpation, No Tenderness to palpation present (GI), No Guarding due to palpation present (GI) and Yes No hepatosplenomegaly present Extremity: COMMON NORMALS: normal to inspection, capillary refill normal, no clubbing, cyanosis or edema, no calf tenderness and no pedal edema Skin: COMMON NORMALS: no rashes or lesions noted GENERAL SKIN EXAM: no rashes or lesions noted Course Vital Signs: Vital signs: Vital Signs Temperature 98.1 F 12/16/21 12:23 Pulse Rate 77 12/16/21 17:30 Respiratory Rate 15 12/16/21 17:30 Blood Pressure 187/89 12/16/21 17:30 Pulse Oximetry 95 12/16/21 17:30 MDM - Chest Pain Medical Decision Making Labs and imaging reviewed no acute ST changes patient does have a markedly elevated blood pressure responded to treatment.. She also has some hypokalemia she is given potassium supplement we will discharge her back home her blood pressure is improved at this point monitor blood pressure at the custodial for cyst primary care can adjust her antihypertensives 5 days of potassium supplement and then further monitoring at the custodial. Discussed with family questions answered. Family is concerned this may be precipitated by cystitis. Her white count is normal and her UA is relatively contaminated. At this point would not recommend starting oral antibiotics. Medical Records I reviewed the patient's medical records. Lab Data I reviewed the patient's lab results. : 12/16/21 13:21 12/16/21 13:21 Radiology Impressions Chest X-Ray 12/16/21 11:49 IMPRESSION: 1. No acute cardiopulmonary finding. Laboratory Results WBC 9.1 10^3/uL (4.0-10.0) 12/16/21 13:21 RBC 4.15 10^6/uL (4.1-5.3) 12/16/21 13:21 Hgb 12.5 g/dL (11.5-15.3) 12/16/21 13:21 Hct 37.6 % (37.0-47.0) 12/16/21 13:21 MCV 90.6 fl (81-99) 12/16/21 13:21 MCH 30.1 pg (28.0-34.0) 12/16/21 13:21 MCHC 33.2 g/dL (30.0-36.0) 12/16/21 13:21 RDW 12.9 % (12.1-15.1) 12/16/21 13:21 Plt Count 248 10^3/cmm (130-400) 12/16/21 13:21 MPV 11.0 fL (7.4-10.4) H 12/16/21 13:21 Neut % (Auto) 76.5 % 12/16/21 13:21 Lymph % (Auto) 14.9 % 12/16/21 13:21 [place] % (Auto) 6.6 % 12/16/21 13:21 Eos % (Auto) 1.2 % 12/16/21 13:21 Baso % (Auto) 0.6 % 12/16/21 13:21 Neut # (Auto) 6.94 10^3/uL (1.8-7.7) 12/16/21 13:21 Lymph # (Auto) 1.4 10^3/uL (0.8-4.8) 12/16/21 13:21 [place] # (Auto) 0.6 10^3/uL (0.2-0.9) 12/16/21 13:21 Eos # (Auto) 0.1 10^3/uL (0.0-0.8) 12/16/21 13:21 Baso # (Auto) 0.1 10^3/uL (0.0-0.1) 12/16/21 13:21 Nucleated RBC % (auto) 0 % 12/16/21 13:21 Nucleated RBCs # 0.0 /100WBC 12/16/21 13:21 Sodium 139 mmol/L (136-145) 12/16/21 13:21 Potassium 2.7 mmol/L (3.5-5.1) L* 12/16/21 13:21 Chloride 103 mmol/L (98-107) 12/16/21 13:21 Carbon Dioxide 22 mmol/L (22-29) 12/16/21 13:21 Anion Gap 16.7 (5-19) 12/16/21 13:21 BUN 12 mg/dL (8-23) 12/16/21 13:21 Creatinine 0.5 mg/dL (0.5-0.9) 12/16/21 13:21 GFR Calculation Not Reportable 12/16/21 13:21 Glucose 124 mg/dL (65-115) H 12/16/21 13:21 Calculated Osmolality 289 mOsm/kg (285-295) 12/16/21 13:21 Calcium 9.4 mg/dL (8.5-10.5) 12/16/21 13:21 Total Bilirubin 1.4 mg/dL (0.15-1.2) H 12/16/21 13:21 AST 13 U/L (0-32) 12/16/21 13:21 ALT 11 U/L (0-33) 12/16/21 13:21 Alkaline Phosphatase 68 IU/L (35-105) 12/16/21 13:21 Troponin T Baseline 20 ng/L (0-10) H 12/16/21 13:21 Troponin T 120 Minute 20.04 ng/L (0-10) H 12/16/21 15:23 Delta Troponin T 0.04 ABS# (0-10) 12/16/21 15:23 Total Protein 6.9 g/dL (6.6-8.7) 12/16/21 13:21 Albumin 3.9 g/dL (3.5-5.2) 12/16/21 13:21 Globulin 3.0 g/dL (1.3-4.6) 12/16/21 13:21 Lipase 24 U/L (13-60) 12/16/21 13:21 Discharge Plan Discharge Patient Disposition: Home Clinical Impression: Atypical chest pain, Dementia, Hypokalemia Condition: Stable Prescriptions: New potassium chloride 20 mEq tablet extended release 20 meq PO DAILY Qty: 5 0RF No Action One Daily Womens 50 Plus 0.4 mg tablet 1 tab PO DAILY@08 0RF acetaminophen 325 mg capsule 650 mg PO TID PRN (Reason: Pain) 0RF atorvastatin 20 mg tablet 20 mg PO DAILY@20 0RF melatonin 3 mg capsule 3 mg PO BEDTIME@20 0RF bisacodyl 10 mg Suppository 10 mg CO DAILY PRN (Reason: Constipation) 0RF Rx Instructions: if no results from mom Dulcolax (bisacodyl) 5 mg Tablet,Delayed Release (Dr/Ec) 10 mg PO DAILY PRN (Reason: Constipation) 0RF Rx Instructions: give if no results from mom carvedilol 6.25 mg tablet 6.25 mg PO BID@08,20 0RF amlodipine 5 mg tablet 5 mg PO DAILY@08 0RF famotidine 20 mg Tablet 20 mg PO BID@08,20 0RF Milk of Magnesia 400 mg/5 mL Suspension 30 ml PO DAILY PRN (Reason: Constipation) 0RF Rx Instructions: if no bm in 3 days Fleet Enema 19-7 gram/118 mL Enema 118 ml CO DAILY PRN (Reason: Constipation) 0RF Rx Instructions: if no results from mom and dulcolax sertraline 50 mg Tablet 50 mg PO BEDTIME@20 0RF lisinopril 20 mg tablet 40 mg PO BEDTIME@20 0RF Eucerin Cream 1 applic TOPICAL DAILY 0RF Rx Instructions: apply to body until rash resolved Discharge Orders: Discharge ED (Routine); Ordered 12/16/21 Ordered By: Fadi Parker Referrals: Pualina Crawford MD [Primary Care Provider] - Discharge Diet: Usual diet Discharge Activity: Increase activity as tolerated Patient Instructions: Opioid Safety Activity Restrictions/Additional Instructions: Monitor blood pressure at the custodial. Recheck potassium in 2 days. Coding Level of Care Code ED Clearing Distribution Clerk for Pam Ribeiro
[2021-12-16 13:30] LABS: Basophils # 0.1 10^3/uL (0.0-0.1); Basophils % 0.6 %; Eosinophils # 0.1 10^3/uL (0.0-0.8); Eosinophils % 1.2 %; Hematocrit 37.6 % (37.0-47.0); Hemoglobin 12.5 g/dL (11.5-15.3); Lymphocytes # 1.4 10^3/uL (0.8-4.8); Lymphocytes % 14.9 %; Mean Corpuscular HGB Conc 33.2 g/dL (30.0-36.0); Mean Corpuscular Hemoglobin 30.1 pg (28.0-34.0); Mean Corpuscular Volume 90.6 fl (81-99); Monocytes # 0.6 10^3/uL (0.2-0.9); Monocytes % 6.6 %; Neutrophils # 6.94 10^3/uL (1.8-7.7); Neutrophils % 76.5 %; Nucleated Red Blood Cells % 0 %; Platelet Count 248 10^3/cmm (130-400); Red Blood Count 4.15 10^6/uL (4.1-5.3); Red Cell Distribution Width 12.9 % (12.1-15.1); White Blood Count 9.1 10^3/uL (4.0-10.0)
[2021-12-16] MEDS: ondansetron 2 mg/ML SDV 2 mL 4 MG IVP (13:32)
[2021-12-16 13:52] LABS: Alanine Aminotransferase 11 U/L (0-33); Albumin Level 3.9 g/dL (3.5-5.2); Alkaline Phosphatase 68 IU/L (35-105); Anion Gap 16.7 (5-19); Aspartate Amino Transferase 13 U/L (0-32); Blood Urea Nitrogen 12 mg/dL (8-23); Calcium 9.4 mg/dL (8.5-10.5); Carbon Dioxide 22 mmol/L (22-29); Chloride 103 mmol/L (98-107); Creatinine Clr Calc Pharmacy 68.8332; Glucose 124 mg/dL (65-115); Lipase 24 U/L (13-60); Osmolality Calculated 289 mOsm/kg (285-295); Sodium 139 mmol/L (136-145); Total Bilirubin 1.4 mg/dL (0.15-1.2); Total Protein 6.9 g/dL (6.6-8.7)
[2021-12-16 13:53] LABS: Troponin(5th) Baseline 20 ng/L (0-10)
[2021-12-16 13:54] LABS: Potassium 2.7 mmol/L (3.5-5.1)
[2021-12-16 14:01] VITALS: BP 198/119; PULSE 89; RESP 18; O2SAT 100
--- NOTE | 2021-12-16 14:03 | PC.PHAR ---
pt is from [facility]-robby nurse from [facility] states the pt had no meds today-pts mar from [facility] has depakote dr 125mg bid,gabapentin 100mg bid,lorazepam 0.5mg bid all end date as 11/26/2021-lorazepam 0.5mg tid prn as end date 12/16/2021
[2021-12-16] MEDS: potassium chloride oral liq 20 mEq/15 mL UDC 40 MEQ PO (14:13)
[2021-12-16] MEDS: LORazepam 2 mg/mL INJ 1 mL 1 MG IVP (15:21)
[2021-12-16 15:31] VITALS: BP 178/90; PULSE 81; RESP 16
[2021-12-16] MEDS: metoprolol tartrate 1 mg/1 mL SDV 5 mL 2.5 MG IVP (15:56)
[2021-12-16] MEDS: amlodipine 5 mg Tablet PO (15:56)
[2021-12-16 15:57] LABS: Troponin 5 2HR 20.04 ng/L (0-10)
[2021-12-16 16:04] LABS: Troponin 5 2HR Delta 0.04 ABS# (0-10)
[2021-12-16 16:30] VITALS: BP 166/79; PULSE 76; RESP 18; O2SAT 93
--- NOTE | 2021-12-16 16:49 | PC.NURSE ---
report given to robby galaviz at [facility].
[2021-12-16 17:30] VITALS: BP 187/89; PULSE 77; RESP 15; O2SAT 95
--- NOTE | 2021-12-16 17:42 | PC.NURSE ---
REPORT GIVEN TO [facility].
== END 2021-12-16 17:53 | disposition home or self-care (01) ==
PROVIDERS: Emergency Provider Family Medicine; PCP Family Medicine
DX: R07.89 Other chest pain (principal); E87.6 Hypokalemia; F03.90 Unspecified dementia, unspecified severity, without behavioral disturbance, psychotic disturbance, mood disturbance, and anxiety
CPT/HCPCS: 71045; 80053; 83690; 84484; 85025; 93005; 96374; 96375; 99284; J2060; J2405; J3490